=== PATIENT | male | born 1950 | race Caucasian/White ===

== ENCOUNTER 2020-07-31 01:12 | Outpatient (CLI) | payer BC, SELFPAY ==
[2020-07-31 16:30] LABS: SARS-CoV-2 RNA PCR Negative
== END 2020-07-31 01:13 | disposition home or self-care (01) ==
LOC: ANHCOVIDDT 01:12
PROVIDERS: PCP Family Medicine; Visit Provider Specialist
DX: Z01.812 Encounter for preprocedural laboratory examination (principal); Z20.828 Contact with and (suspected) exposure to other viral communicable diseases
CPT/HCPCS: 87635; C9803; U0003

== ENCOUNTER 2020-08-03 05:37 | Day surgery (SDC) | payer BC, SELFPAY ==
[2020-07-31 14:30] VITALS: BMI 29.4
[2020-08-03] VITALS (17 sets, daily range): BP systolic 106–130; BP diastolic 60–79; PULSE 62–75; RESP 14–20; TEMP 36.6; O2SAT 96–99
[2020-08-03 07:39] LABS: Basophils Absolute Auto 0.1 K/mm3 (0.0-0.1); Basophils Percent Auto 1.2 % (0.2-1.2); Eosinophils Absolute Auto 0.4 K/mm3 (0-0.3); Eosinophils Percent Auto 4.5 % (0-4.4); Hematocrit 37.3 % (42.0-52.0); Hemoglobin 13.1 g/dL (14.0-18.0); Immature Granulocyte Absolute 0.06 K/mm3 (0.00-0.031); Immature Granulocyte Percent A 0.7 % (0-0.5); Lymphocytes Absolute Auto 1.89 K/mm3 (0.9-3.2); Lymphocytes Percent Auto 21.8 % (18.3-44.2); Mean Corpuscular HGB Conc 35.1 g/dl (32-36); Mean Corpuscular Hemoglobin 31.3 pg (26-34); Mean Corpuscular Volume 89.2 fl (80-100); Mean Platelet Volume 8.5 fl (7.4-10.4); Monocytes Absolute Auto 0.8 K/mm3 (0.1-0.6); Monocytes Percent Auto 9.7 % (2.6-8.5); Neutrophils Absolute Auto 5.4 K/mm3 (1.3-6.7); Neutrophils Percent Auto 62.1 % (45.5-73.1); Platelet Count Result 254 k/mm3 (150-375); Red Blood Count 4.18 M/mm3 (4.6-6.20); White Blood Count 8.7 K/mm3 (4.5-10.0)
[2020-08-03 07:46] LABS: INR 0.9; Prothrombin Time 12.3 Seconds (11.1-14.7)
[2020-08-03 07:49] LABS: Anion Gap 9 mmol/L (8-16); Blood Urea Nitrogen 21 mg/dL (9-20); Calcium 9.7 mg/dL (8.4-10.2); Carbon Dioxide 26 mmol/L (22-30); Chloride 106 mmol/L (98-107); Estimated CRCL calculation 49 ml/min; Estimated Glomerular Filt Rate 54; Glucose 123 mg/dL (75-110); Potassium 4.5 mmol/L (3.4-5.0); Sodium 141 mmol/L (137-145)
--- NOTE | 2020-08-03 08:52 | WPDMODSED ---
Moderate Sedation Note-Pt Data Patient Data Diagnosis: Occasional chest pain, largely atypical of angina hypertension abnormal nuclear stress test suggesting previous inferior infarction Present Complaint: no complaints this morning Procedure to be performed/Plan: left heart catheterization Allergies Allergy/AdvReac Type Severity Reaction Status Date / Time No Known Allergies Allergy Unverified 07/13/20 11:21 Home Medications Medication Instructions Recorded Confirmed Type buspirone 15 mg tablet 15 mg PO BID 01/08/20 07/31/20 History fluticasone propionate 50 2 spray NASAL DAILY 01/08/20 07/31/20 History mcg/actuation nasal spray,suspension latanoprost 0.005 % eye drops 1 drop EACH EYE QPM 01/08/20 07/31/20 History omega-3 fatty acids 1,000 mg 1,000 mg PO DAILY 01/08/20 07/31/20 History capsule omeprazole 40 mg capsule,delayed 40 mg PO DAILY #90 cap 01/08/20 07/31/20 Rx release quinapril 40 mg tablet 40 mg PO DAILY #90 tablet 01/08/20 07/31/20 Rx atorvastatin 40 mg tablet 40 mg PO DAILY #90 tablet 07/07/20 07/31/20 Rx carvedilol 12.5 mg tablet 12.5 mg PO Q12H #180 tablet 07/07/20 07/31/20 Rx bupropion HCl 300 mg PO DAILY 07/31/20 07/31/20 History Current Medications: Active Medications Sodium Chloride (Normal Saline Iv) 500 mls @ 100 mls/hr IV CONT .Q5H TONIO Sedation/Anesthesia: No previous sedation/anesthesia problems (including family history). [facility] Social History Social History Years smoked: 15 Smoking status: Current every day smoker Tobacco type: cigars Second hand tobacco smoke exposure: No Alcohol intake: current Drinks per week: 1 Substance use: never Substance use type: does not use Living arrangements: with family Gender identity (if verbalized by the patient): Male Spiritual care concerns: No Mod Sed Physical Exam Physical Exam Pre Procedural Exam: Normal: Appearance, Neck, Throat, Airway, Lungs, Heart Size, Heart Rate, Heart Rhythm, Neuro Exam and Extremities Hours since solid foods: 12 Hours since liquid intake: 12 Internal Medicine - PN: Obj Da Vital Signs Vital Signs: Vital Signs - 24 hr 08/03/20 07:45 Temperature 36.6 C Pulse Rate 75 Respiratory Rate 14 Blood Pressure 118/60 Pulse Oximetry 98 Meds/Results Medications: Active Medications Generic Name Dose Route Start Last Admin Trade Name Kanwal PRN Reason Stop Dose Admin Sodium Chloride 500 mls @ 100 mls/hr 08/03/20 05:55 Normal Saline Iv IV CONT .Q5H TONIO Labs CBC & Chem 7: 08/03/20 07:29 08/03/20 07:29 Labs: Laboratory Results - last 24 hr 08/03/20 08/03/20 08/03/20 07:29 07:29 07:29 WBC 8.7 RBC 4.18 L Hgb 13.1 L Hct 37.3 L MCV 89.2 MCH 31.3 MCHC 35.1 RDW 13.0 Plt Count 254 MPV 8.5 Immature Gran % (Auto) 0.7 H Neut % (Auto) 62.1 Lymph % (Auto) 21.8 [place] % (Auto) 9.7 H Eos % (Auto) 4.5 H Baso % (Auto) 1.2 Lymph # (Auto) 1.89 [place] # (Auto) 0.8 H Eos # (Auto) 0.4 H Baso # (Auto) 0.1 Abs Immat Gran (auto) 0.06 H Absolute Neuts (auto) 5.4 Absolute Nucleated RBC 0.0 Nucleated RBC % 0.0 PT 12.3 INR 0.9 Sodium 141 Potassium 4.5 Chloride 106 Carbon Dioxide 26 Anion Gap 9 BUN 21 H Creatinine 1.30 Estim Creat Clear Calc 49 Estimated GFR 54 L Glucose 123 H Calcium 9.7 ASA Classification/Sedation ASA Classification/Sedation ASA Class: II Emergent: No Risks: Risks, benefits and alternatives explained and patient/family accepted plan for sedation. Patient re-evaluated immediately prior to sedation.
--- NOTE | 2020-08-03 09:30 | WPDCARDPROC ---
Cardiac Cath Procedure Note Date of procedure:: 08/03/20 Performing physician:: Librado Knox MD Indication:: atypical chest pain hypertension abnormal nuclear stress test Brief clinical history:: 70-year-old man with a history of recent symptoms of intermittent chest discomfort occurring both with and without exertion. Nuclear stress testing suggests evidence of a previous inferior infarction and in this setting and angiogram has been recommended. Procedure Procedure performed:: Left heart catheterization with left ventriculography and coronary angiography Sedation/Medication given:: fentanyl 50 mg Versed 2 mg case start time 9:04 a.m. case end time 9:26 a.m. sedation provided by Anum Griffiths RN, trained observer Access site:: right femoral Estimated blood loss:: 10-15 cc Procedure note:: patient was brought to the cardiac catheterization lab where the right femoral triangle was prepared and draped in the usual fashion anesthesia was provided with 1% lidocaine infiltrated locally using the modified Seldinger technique I punctured the right femoral artery. The J-wire provided with the sheath would not easily advance through the iliofemoral system and I replaced that with a Rosina wire which advanced fairly easily into the aorta. Five [place]an vascular sheath was then placed and left heart catheterization was carried out. I should also mention the iliac and femoral arteries were moderately calcified. Initially a 5 [place]an angled pigtail catheter was used to measure left-sided hemodynamics and, inject the left ventriculogram in the ALBA projection and document pullback pressures across the aortic valve. The left coronary was then engaged and injected using a standard 5 [place] FL4 catheter. Multiple projections were taken. The right coronary was then engaged and injected using a standard 5 [place] JR4 catheter. The cine angiograms were then reviewed and the case was terminated. Patient was taken to the holding area for manual sheath removal it was obvious that there was a significant amount of peripheral disease in the femoral iliac and I did not believe the patient was a reasonable candidate for a Angio-Seal device. Findings:: Hemodynamics: Central aortic pressure is 110/50 left ventricle 112/2 end-diastolic pressure 13 there is no systolic gradient on pullback across the aortic valve the left ventricle is normal in size. There is a small area of akinesis at the base of the inferior wall the remainder of the LV contracts very well. Global ejection fraction is 60%. The left main coronary artery is nicely patent and medium in size the left anterior descending is a moderate caliber artery with minimal luminal irregularities it is patent down to the apex of the left ventricle. There are no significant lesions in the LAD. Circumflex is a moderate caliber artery the proximal marginal branches are extremely small. There is a medium-sized distal OM that does not have any significant lesions. The posterior circumflex branch after this distal OM has a high-grade stenosis which appears to be 100% occluded with antegrade filling collaterals. This is a fairly small distal circumflex vessel. Right coronary artery is medium in caliber and is dominant to the posterior circulation. The right coronary artery has a early bifurcation in the 2nd portion of the artery. The RV branches and posterolateral branches appear to be free of significant disease the branch which appears to have been the RPDA is 100% closed. There was no antegrade or retrograde filling to this vessel. Conclusion:: 1. Coronary artery disease with 100% occlusion of what appears to have been the RPDA which is a very early bifurcating vessel in this patient's RCA. 2. Nuclear stress test findings which are consistent with this occluded vessel 3. also apparent 100% occlusion with antegrade collateral filling of the terminal portion of the circu
--- NOTE | 2020-08-03 15:52 | SUR.PHASEII ---
Pt. and spouse given post-procedure discharge education. Pt. and spouse verbalize understanding. Pt. transported to vehicle via wheelchair to be driven home by spouse.
== END 2020-08-03 15:54 | disposition home or self-care (01) ==
PROVIDERS: PCP Family Medicine; Visit Provider Specialist
PROC: 4A023N7 Measurement of Cardiac Sampling and Pressure, Left Heart, Percutaneous Approach (ICD-10-PCS; CPT 93452; principal; 2020-08-03 08:30)
DX: I25.10 Atherosclerotic heart disease of native coronary artery without angina pectoris (principal); R94.39 Abnormal result of other cardiovascular function study; R07.89 Other chest pain; I10 Essential (primary) hypertension; J44.9 Chronic obstructive pulmonary disease, unspecified; E78.5 Hyperlipidemia, unspecified; K21.9 Gastro-esophageal reflux disease without esophagitis; F41.9 Anxiety disorder, unspecified; Z85.820 Personal history of malignant melanoma of skin; F17.290 Nicotine dependence, other tobacco product, uncomplicated
CPT/HCPCS: 36415; 80048; 85025; 85610; 93458; C1769; C1887; C1894; J0461; J1644; J2250; J3010; J7040

== ENCOUNTER 2020-11-26 09:00 | Outpatient (RCR) | payer BC, SELFPAY ==
[2020-09-15 15:40] VITALS: BP 138/80; PULSE 72; RESP 16; TEMP 36.5
[2020-09-15 15:42] VITALS: PULSE 72
--- NOTE | 2020-11-02 10:09 | PCCPR ---
Pt cxl today due to having an MD apt.
== END 2020-12-03 16:53 | disposition home or self-care (01) ==
LOC: ANHCPREHAB 09:00
PROVIDERS: PCP Family Medicine; Visit Provider Internal Medicine Cardiovascular Disease
DX: I20.8 Other forms of angina pectoris (principal); I25.2 Old myocardial infarction
CPT/HCPCS: 93798

== ENCOUNTER 2021-02-19 09:44 | Outpatient (CLI) | payer BC, SELFPAY ==
--- NOTE | ~2021-02-19 | XR_ITS ---
EXAMINATION: XR abdomen/kub 1V DATE: 02/19/2021 10:06 INDICATION: Gross hematuria. TECHNIQUE: A supine view of the abdomen on 2 radiographs was obtained. COMPARISON: CT abdomen and pelvis 02/19/2021 FINDINGS: There are no dilated loops of bowel. There are stones in the kidneys measuring up to 13 mm on the right. There is an 8 mm stone in proximal left ureter. There are 2 phleboliths in right pelvis . IMPRESSION: 1. Stones in the kidneys and proximal left ureter. Reviewed, dictated and finalized at location B.
--- NOTE | ~2021-02-19 | CT_ITS ---
EXAMINATION: CT abdomen pelvis wo/w con DATE: 02/19/2021 10:30 INDICATION: Gross hematuria TECHNIQUE: Computed tomography (CT) of the abdomen and pelvis was performed without and subsequently with 130 cc Omnipaque 350 intravenous contrast. Automated exposure control and iterative reconstructi on technique were employed. Exam dose: 1697.09 mGy-cm total exam DLP. COMPARISON: 02/19/2021 KUB 06/15/2015 CT abdomen pelvis FINDINGS: The lung bases are clear of infiltrate or consolidation. Normal heart size. No pericardial or pleural effusion. The liver, gallbladder, bile ducts, spleen, pancreas and pancreatic duct as well as adrenal glands ar e unremarkable. There is a 2 6 mm upper pole left renal cyst. No other renal space occupying mass lesion. Extensive bilateral nonobstructive nephrolithiasis throughout both kidneys. Up to 5.5 x 9 mm right ureterovesical junction calculus with mild right hydroureteronephrosis 7.9 x 9.5 mm proximal left ureteral calculus with proximal moderately severe left hydroureteronephros is There is extensive calcification of the abdominal aorta and calcification at the origins of celiac an d superior mesenteric and renal arteries. No abdominal aortic aneurysm. Calcification of the iliac an d femoral arteries. No intraperitoneal or retroperitoneal or pelvic mass lesion or adenopathy or ascites. There is prostate enlargement. The urinary bladder is unremarkable. The appendix is not identified. Diverticulosis of the sigmoid and descending colon; no CT evidence of diverticulitis. No bowel obstruction, bowel wall thickening, pneumatosis or intraperitoneal free air . Fat-containing umbilical hernia. Transitional lumbosacral vertebral sacralization pseudoarthrosis on the left. Severe degenerative dis c disease throughout the lumbar spine. Diffuse idiopathic skeletal hyperostosis of the thoracic spine. IMPRESSION: Extensive bilateral nephrolithiasis Up to 5.5 x 9 mm right ureterovesical junction calculus and 7.9 x 9.5 mm proximal left ureteral calcu korin with bilateral left greater than right hydroureteronephrosis Diverticulosis of the colon Reviewed, dictated and finalized at Location A. Reviewed, dictated and finalized at location A. IMPRESSION: Extensive bilateral nephrolithiasis Up to 5.5 x 9 mm right ureterovesical junction calculus and 7.9 x 9.5 mm proxim al left ureteral calculus with bilateral left greater than right hydroureterone phrosis Diverticulosis of the colon
[2021-02-19 10:14] LABS: Estimated Glomerular Filt Rate 43
== END 2021-02-19 09:45 | disposition home or self-care (01) ==
PROVIDERS: PCP Family Medicine; Visit Provider Nurse Practitioner Adult Health
DX: R31.0 Gross hematuria (principal); N20.2 Calculus of kidney with calculus of ureter; K57.30 Diverticulosis of large intestine without perforation or abscess without bleeding
CPT/HCPCS: 74018; 74178; Q9967

== ENCOUNTER 2021-02-22 22:36 | Emergency (ER) | payer BC, SELFPAY ==
[2021-02-22] VITALS (7 sets, daily range): BP systolic 157–165; BP diastolic 67–77; PULSE 62–70; RESP 18–30; TEMP 36.1; O2SAT 100
--- NOTE | ~2021-02-22 | CT_ITS ---
EXAMINATION: CT abdomen pelvis wo con DATE: 02/22/2021 23:37 INDICATION: Flank pain and hematuria. TECHNIQUE: Computed tomography (CT) of the abdomen and pelvis was performed without intravenous contr ast. Automated exposure control and iterative reconstruction technique were employed. The dose-length product was 697.47 mGy-cm. COMPARISON: 02/19/2021 FINDINGS: Mild dependent atelectasis in the left lower lobe. Heart size is normal. Atherosclerotic coronary art adan calcifications. No pericardial or pleural effusion. Liver, gallbladder, spleen, pancreas and bila teral adrenal glands are normal. There is moderate colonic diverticulosis with a sigmoid predominance . There is no adjacent inflammatory change to suggest diverticulitis. No bowel obstruction. Miramontes catheter and small amount of gas within the nearly decompressed bladder. Bilateral internal ure teral stents with loops formed in the bilateral renal pelvises sees and in the bladder. Bilateral nep hrolithiasis with large stones including a 1.9 cm staghorn calculus at the upper pole calyces of the right kidney and 10 mm stones at the upper pole of the left kidney and lower pole of the right kidney . Round 7 mm stone in the proximal left ureter with persistent more proximal mild left hydroureterone phrosis. No stones along the right ureter or right-sided hydronephrosis. Mild prostatomegaly. No free intraperitoneal gas or fluid. No pathologically enlarged abdominal or pelvic lymphadenopathy. . There is calcified atherosclerosis of the aorta and many of the other arteries. Severe lumbar spond ylosis. IMPRESSION: 1. Bilateral nephrolithiasis post interval bilateral ureteral stent placement with persistent [address] one in the proximal left ureter and slight improvement in now mild proximal left hydroureteronephrosi s. 2. Diverticulosis. Reviewed, dictated and finalized at location A. IMPRESSION: 1. Bilateral nephrolithiasis post interval bilateral ureteral stent placement w ith persistent 7 mm stone in the proximal left ureter and slight improvement in now mild proximal left hydroureteronephrosis. 2. Diverticulosis.
[2021-02-22] MEDS: SODIUM CHLORIDE 0.9% IV 1,000 ML 999 ML IV CONT (23:55)
[2021-02-22] MEDS: MORPHINE SULFATE (*CRX) 4 MG/ML INJ IV PUSH (23:56)
[2021-02-22] MEDS: ONDANSETRON INJ 4 MG/2 ML VIAL IV PUSH (23:56)
[2021-02-23] VITALS: PULSE 74; RESP 28; O2SAT 100
[2021-02-23 00:01] VITALS: BP 161/75; PULSE 72; RESP 20; O2SAT 100
[2021-02-23 00:10] LABS: Basophils Absolute Auto 0.1 K/mm3 (0.0-0.1); Basophils Percent Auto 0.6 % (0.2-1.2); Eosinophils Percent Auto 0.3 % (0-4.4); Hematocrit 40.1 % (42.0-52.0); Hemoglobin 13.6 g/dL (14.0-18.0); Immature Granulocyte Absolute 0.06 K/mm3 (0.00-0.031); Immature Granulocyte Percent A 0.5 % (0-0.5); Lymphocytes Absolute Auto 1.59 K/mm3 (0.9-3.2); Lymphocytes Percent Auto 12.6 % (18.3-44.2); Mean Corpuscular HGB Conc 33.9 g/dl (32-36); Mean Corpuscular Hemoglobin 29.8 pg (26-34); Mean Corpuscular Volume 87.9 fl (80-100); Mean Platelet Volume 8.8 fl (7.4-10.4); Monocytes Absolute Auto 0.5 K/mm3 (0.1-0.6); Monocytes Percent Auto 4.2 % (2.6-8.5); Neutrophils Absolute Auto 10.3 K/mm3 (1.3-6.7); Neutrophils Percent Auto 81.8 % (45.5-73.1); Platelet Count Result 268 k/mm3 (150-375); Red Blood Count 4.56 M/mm3 (4.6-6.20); Red Cell Distribution Width 13.2 % (11.5-14.5); White Blood Count 12.6 K/mm3 (4.5-10.0)
[2021-02-23 00:14] LABS: Prothrombin Time 13.5 Seconds (11.1-14.7)
[2021-02-23 00:15] VITALS: PULSE 73; RESP 22; O2SAT 100
[2021-02-23 00:15] LABS: Partial Thromboplastin Time 28.2 SECONDS (22.3-36.8)
[2021-02-23 00:16] VITALS: BP 167/75; PULSE 72; RESP 24; O2SAT 100
[2021-02-23 00:26] LABS: Alanine Aminotransferase 24 U/L (4-50); Albumin Level 4.5 g/dL (3.5-5.1); Alkaline Phosphatase 77 U/L (38-126); Anion Gap 9 mmol/L (8-16); Aspartate Amino Transferase 48 U/L (17-59); Bilirubin,Total 0.6 mg/dL (0.2-1.3); Blood Urea Nitrogen 18 mg/dL (9-20); Calcium 9.6 mg/dL (8.4-10.2); Carbon Dioxide 24 mmol/L (22-30); Chloride 103 mmol/L (98-107); Estimated CRCL calculation 56 ml/min; Estimated Glomerular Filt Rate > 60; Glucose 133 mg/dL (75-110); Lipase 69 U/L (23-300); Potassium 4.6 mmol/L (3.4-5.0); Sodium 136 mmol/L (137-145)
[2021-02-23 00:34] LABS: Add Urine Microscopic? YES; Appearance Urine Cloudy (Clear); Bilirubin Urine Negative (Negative); Blood Urine 3+ (Negative); Glucose Urine UA Negative (Negative); Ketones Urine Negative (Negative); Leukocyte Esterase Ur Trace LEU/UL (Negative); Nitrate Urine Negative (Negative); Protein Urine 3+ mg/dL (Negative); RBC Urine >75 /hpf (0-2); Specific Grav Ur 1.014 (1.001-1.035); Urobilinogen Urine Negative mg/dL (<2.0); WBC Urine 31-50 /hpf
[2021-02-23 00:36] LABS: Color Urine Brown (Yellow)
[2021-02-23] MEDS: ONDANSETRON INJ 4 MG/2 ML VIAL IV PUSH (00:43)
--- NOTE | 2021-02-23 01:54 | ED.GENADULT ---
HPI - General Adult General Chief complaint: Abdominal Pain Stated complaint: lower abd pain, n/v Time Seen by Provider: 02/22/21 23:15 History of Present Illness HPI narrative: Patient is a 70-year-old gentleman who presents to emergency department chief complaint of abdominal pain and hematuria. The patient reports he had a urological procedure today and has bilateral stents. The patient states that he started passing large clots and felt as though his catheter was getting plugged patient reports he has pain in his suprapubic area and abdomen. Patient reports he was moderate to severe Related Data Home Medications Medication Instructions Recorded Confirmed buspirone 15 mg tablet 15 mg PO BID 01/08/20 02/09/21 fluticasone propionate 50 2 spray NASAL DAILY 01/08/20 02/09/21 mcg/actuation nasal spray,suspension latanoprost 0.005 % eye drops 1 drop EACH EYE QPM 01/08/20 02/09/21 Multivitamin 50 Plus 1 09/15/20 02/09/21 aspirin [Aspir-81] 09/15/20 02/09/21 magnesium 400 mg PO DAILY 09/15/20 02/09/21 rosuvastatin 40 mg PO DAILY 09/15/20 02/09/21 Vascepa 2,000 mg PO BID 11/16/20 02/09/21 ascorbic acid (vitamin C) 1,000 mg 1 g PO DAILY 02/09/21 02/09/21 tablet cetirizine 10 mg tablet 10 mg PO DAILY PRN 02/09/21 02/09/21 cholecalciferol (vitamin D3) 50 50 mcg PO DAILY 02/09/21 02/09/21 mcg (2,000 unit) capsule glucosamine HCl 500 mg tablet 500 mg PO DAILY 02/09/21 02/09/21 omega-3 fatty acids 1,000 mg 1,000 mg PO DAILY 02/09/21 02/09/21 capsule pyridoxine (vitamin B6) 100 mg 100 mg PO DAILY 02/09/21 02/09/21 tablet Allergies Allergy/AdvReac Type Severity Reaction Status Date / Time No Known Allergies Allergy Unverified 02/09/21 09:13 Review of Systems Review of Systems: Narrative: A 10 system review of systems was completed on the patient and is negative except for what is stated in the HPI. Nursing and ancillary documentation was reviewed. [facility] Past Medical History Medical History CAD (coronary artery disease) Dupuytren's contracture of right hand Hypertension with heart disease Surgical History Surgical History History of appendectomy History of lithotripsy Status post cataract extraction Status post lumbar spinal fusion Family History Family History Mother Hypertension HLD (hyperlipidemia) Lung cancer Father Cerebrovascular accident Social History Social History Smoking packs per day: 1 Smoking cigarettes per day: 20.0 Years smoked: 15 Smoking pack-years: 15.00 Smoking status: Current every day smoker Tobacco type: cigars Second hand tobacco smoke exposure: No Additional smoking assessment comments: cigar smoker 2-3 per day Alcohol intake: current Drinks per week: 1 Substance use: never Substance use type: does not use Gender identity (if verbalized by the patient): Male Spiritual care concerns: No Exam Narrative: Exam Narrative: GENERAL: Well-appearing, well-nourished, and in no acute distress. HEAD: Normocephalic, atraumatic. EYES: PERRLA and EOMI. ENT: Nares clear, no rhinorrhea or epistaxis. Mucous membranes moist. NECK: Supple. CHEST: Clear to auscultation. No respiratory distress. HEART: Regular rate and rhythm. No murmur heard. Normal peripheral pulses. ABDOMEN: Soft, nontender, nondistended, normal active bowel sounds. EXTREMITIES: Normal range of motion. No edema. SKIN: Warm, dry, no rash. NEURO: No focal deficits. Alert and oriented x3. PSYCH: Normal mood and affect. Course Course Emergency Course: Patient was irrigated and now is got pink lemonade color urine. Case was discussed with Dr. Taylor who is the patient's urologist who will closely follow the patient as an outpatient he re
[2021-02-23 02:36] VITALS: BP 153/74; PULSE 75; RESP 16; TEMP 36.8; O2SAT 100
== END 2021-02-23 02:37 | disposition home or self-care (01) ==
PROVIDERS: Emergency Provider Emergency Medicine; PCP Family Medicine
DX: G89.18 Other acute postprocedural pain (principal); R10.30 Lower abdominal pain, unspecified; R31.0 Gross hematuria; I25.10 Atherosclerotic heart disease of native coronary artery without angina pectoris; I10 Essential (primary) hypertension; Z98.49 Cataract extraction status, unspecified eye; Z98.1 Arthrodesis status; F17.290 Nicotine dependence, other tobacco product, uncomplicated; Z96.0 Presence of urogenital implants; Z79.82 Long term (current) use of aspirin
CPT/HCPCS: 36415; 74176; 80053; 81001; 83690; 85025; 85610; 85730; 87086; 96361; 96374; 96375; 96376; 99284; J2270; J2405; J7030

== ENCOUNTER 2021-03-02 10:18 | Outpatient (CLI) | payer BC, SELFPAY ==
[2021-03-02 11:10] LABS: Prothrombin Time 13.8 Seconds (11.1-14.7)
[2021-03-02 11:11] LABS: Partial Thromboplastin Time 29.8 SECONDS (22.3-36.8)
== END 2021-03-02 10:19 | disposition home or self-care (01) ==
LOC: ANHSURGERY 10:21
PROVIDERS: PCP Family Medicine; Visit Provider Urology
DX: N20.1 Calculus of ureter (principal); Z01.818 Encounter for other preprocedural examination
CPT/HCPCS: 36415; 85610; 85730; 87086

== ENCOUNTER → 2021-03-09 01:26 | Outpatient (CLI) | payer BC, SELFPAY ==
[2021-03-09 18:55] LABS: SARS-CoV-2 RNA PCR Negative
== END ==
PROVIDERS: PCP Family Medicine; Visit Provider Urology
DX: Z01.812 Encounter for preprocedural laboratory examination (principal); Z20.822 Contact with and (suspected) exposure to COVID-19
CPT/HCPCS: C9803; U0003; U0005

== ENCOUNTER 2021-03-12 05:43 | Day surgery (SDC) | payer BC, SELFPAY ==
[2021-02-24 15:44] VITALS: BMI 27.3
[2021-03-12] VITALS (7 sets, daily range): BP systolic 116–133; BP diastolic 61–74; PULSE 62–77; RESP 12–19; TEMP 36.4–36.8; O2SAT 97–100
--- NOTE | ~2021-03-12 | XR_ITS ---
EXAMINATION: XR abdomen/kub 1V DATE: 03/12/2021 06:31 INDICATION: Lithotripsy TECHNIQUE: A supine view of the abdomen on radiographs was obtained. COMPARISON: CT dated 02/22/2021 FINDINGS: Bilateral internal ureteral stents with loops formed over the expected location of the bladder and bi lateral renal pelvises sees. No interval change in pattern of several stones projecting over both kid neys as well as 3 mm stone projecting along side the stent in the proximal left ureter. Phleboliths a nd atherosclerotic calcifications in the pelvis. Normal bowel gas pattern. Severe lumbar spondylosis. IMPRESSION: 1. No interval change in bilateral nephrolithiasis, an 8 mm left ureteral stone and bilateral interna l ureteral stents in expected position. Reviewed, dictated and finalized at location A. IMPRESSION: 1. No interval change in bilateral nephrolithiasis, an 8 mm left ureteral stone and bilateral internal ureteral stents in expected position.
--- NOTE | 2021-03-12 06:55 | WPDANESEPPF ---
Anes - Initial Pre Proc Eval Procedure: Operation Date: 03/12/21 07:30 Proposed Procedures p Left Ureteral Extracorporeal Shock Wave Lithotripsy, - Neeraj Taylor MD s Cystoscopy with Right Stent Removal - Neeraj Taylor MD Date/Time: 03/12/21 06:55 Surgeon: Neeraj Taylor MD Pre Op Diagnosis: left ureteral stone Patient Data Age: 70 Gender: M Height: 5 ft 10 in Weight: 84 kg Last Vital Signs Temp 36.4 C 03/12/21 06:50 Pulse 66 03/12/21 06:50 Resp 16 03/12/21 06:50 BP 116/65 03/12/21 06:50 Pulse Ox 98 03/12/21 06:50 Allergies Allergy/AdvReac Type Severity Reaction Status Date / Time No Known Allergies Allergy Unverified 03/12/21 06:51 Home Medications Medication Instructions Recorded Confirmed Type buspirone 15 mg tablet 15 mg PO BID 01/08/20 02/24/21 History fluticasone propionate 50 2 spray NASAL DAILY PRN 01/08/20 02/24/21 History mcg/actuation nasal spray,suspension latanoprost 0.005 % eye drops 1 drop EACH EYE QPM 01/08/20 02/24/21 History metoprolol succinate 50 mg PO DAILY #30 tablet 08/03/20 02/24/21 Rx Multivitamin 50 Plus 1 tab-cap QAM 09/15/20 02/24/21 History aspirin [Aspir-81] 81 mg QAM 09/15/20 02/24/21 History magnesium 400 mg PO DAILY 09/15/20 02/24/21 History rosuvastatin 40 mg PO HS 09/15/20 02/24/21 History Vascepa 2,000 mg PO BID 11/16/20 02/24/21 History omeprazole 40 mg capsule,delayed 40 mg PO DAILY #90 cap 12/29/20 02/24/21 Rx release quinapril 40 mg tablet 40 mg PO DAILY #90 tablet 12/29/20 02/24/21 Rx ascorbic acid (vitamin C) 1,000 mg 1 g PO DAILY 02/09/21 02/24/21 History tablet cetirizine 10 mg tablet 10 mg PO DAILY PRN 02/09/21 02/24/21 History cholecalciferol (vitamin D3) 50 50 mcg PO DAILY 02/09/21 02/24/21 History mcg (2,000 unit) capsule glucosamine HCl 500 mg tablet 500 mg PO DAILY 02/09/21 02/24/21 History pyridoxine (vitamin B6) 100 mg 100 mg PO DAILY 02/09/21 02/24/21 History tablet sertraline 100 mg PO DAILY 02/24/21 02/24/21 History Patient hx anesthesia problems: none Family hx anesthesia problems: none PMFSH Past Medical History Medical History CAD (coronary artery disease) Depression with anxiety Dupuytren's contracture of right hand Gastro-esophageal reflux disease without esophagitis Hypertension with heart disease Mild chronic obstructive pulmonary disease Mixed hyperlipidemia MARTHA (obstructive sleep apnea) Surgical History Surgical History History of appendectomy History of lithotripsy Status post cataract extraction Status post lumbar spinal fusion Family History Family History Mother Hypertension HLD (hyperlipidemia) Lung cancer Father Cerebrovascular accident Social History Social History Smoking packs per day: 1 Smoking cigarettes per day: 20.0 Years smoked: 15 Smoking pack-years: 15.00 Smoking status: Current every day smoker Tobacco type: cigarettes and cigars Second hand tobacco smoke exposure: No Additional smoking assessment comments: STATES HX CIGARETTES 1PK/DAY/25YRS NOW 3 CIGARS/DAY/15YRS Alcohol intake: current Drinks per week: 2 Substance use: never Substance use type: does not use Living arrangements: with family Gender identity (if verbalized by the patient): Male Spiritual care concerns: No Anes - Eval Final PreProcedure Day of Procedure 03/12/21 06:55 Patient weight: overweight Heart: regular rate and rhythm Lungs: decreased breath sounds Airway: Mallampati scale class II Neurological: alert and oriented Last oral intake: >/= 8 hours ASA classification: III Emergent: no Anesthetic plan: proceed Anesthesia type and monitoring: general LMA and standard monitoring Informed Consent: Nii kendall
[2021-03-12] MEDS: LACTATED RINGERS 1,000 ML 30 ML IV CONT (07:01)
--- NOTE | 2021-03-12 07:30 | WPDHPUPDATE1 ---
History and Physical Update Update Date/Time: 03/12/21 07:30 History and Physical has been reviewed, including an updated exam of the patient. There are NO changes in the patient's condition. Risks, benefits, and alternatives have been discussed and questions answered. Patient agrees to proceed with procedure.
[2021-03-12] MEDS: ceFAZolin 2 GM/D5W 50 ML 2 GM/50 ML BAG IVPB (07:35)
--- NOTE | 2021-03-12 08:19 | P.OP_ITS ---
Procedure Note - Detailed Date of procedure: 03/12/21 Pre-op diagnosis: left ureteral stone Left ureteral stone 1 cm, right ureteral stent Post-op diagnosis: same Procedure performed: Cystoscopy with right stent removal. ESWL of left ureteral calculus Description of procedure: Patient is taken the operative suite and correctly identified. Once anesthesia was obtained he was prepped draped usual sterile fashion. Sixteen Kiswahili scope was inserted in the bladder direct vision. The right ureteral stent was visualized. Grasper was used to remove it. We then repositioned the patient had localized the stone in both planes. Three thousand shocks were given to the stone. Patient tolerated procedure well without any complications and taken recovery stable condition. He will follow up in 7-10 days with a KUB. Anesthesia: GLMA Surgeon: Neeraj Taylor MD Drains: Yes Packing: No Pathology: none sent Complications: No immediate complications Condition: stable Disposition: PACU
== END 2021-03-12 09:39 | disposition home or self-care (01) ==
PROVIDERS: PCP Family Medicine; Visit Provider Urology
PROC: (CPT 50590; principal; 2021-03-12 07:30)
PROC: (CPT 52352; 2021-03-12 07:30)
DX: N20.1 Calculus of ureter (principal); I25.10 Atherosclerotic heart disease of native coronary artery without angina pectoris; J44.9 Chronic obstructive pulmonary disease, unspecified; I11.9 Hypertensive heart disease without heart failure; G47.33 Obstructive sleep apnea (adult) (pediatric); E78.2 Mixed hyperlipidemia; F41.8 Other specified anxiety disorders; Z98.1 Arthrodesis status; F17.210 Nicotine dependence, cigarettes, uncomplicated; F17.290 Nicotine dependence, other tobacco product, uncomplicated
CPT/HCPCS: 50590; 36415; 74018; 85610; 85730; 87086; A9270; C1769; C9803; J0690; J2405; J2704; J3010; J7030; J7120; U0003; U0005

== ENCOUNTER 2021-03-23 09:44 | Outpatient (CLI) | payer BC, SELFPAY ==
--- NOTE | ~2021-03-23 | XR_ITS ---
EXAMINATION: XR abdomen/kub 1V INDICATION: Gross hematuria, recent lithotripsy TECHNIQUE: Supine views of the abdomen were obtained on 2 radiographs. COMPARISON: 03/12/2021 FINDINGS: The right internal ureteral stent has been removed. There is a persistent 2.1 cm calcificat ion of the right kidney upper pole. A 1.2 cm stone is also seen in the lower pole of the right kidney . There is a left internal ureteral stent in expected position. A 10 mm stone previously seen adjacen t to the left internal ureteral stent is no longer identified, likely due to interval lithotripsy. Th ere is stable left nephrolithiasis. Vascular calcification projects near the distal aspect of the ke[place] nt giving the appearance of a distal ureteral calculus. There is severe lumbar spondylosis. The bowel gas pattern is normal. 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 The lung bases are clear. IMPRESSION: 1. Bilateral nephrolithiasis with apparent interval treatment of a previously described stone adjacen t to the left internal ureteral stent. 2. Right internal ureteral stent removal. Reviewed, dictated and finalized at location A. IMPRESSION: 1. Bilateral nephrolithiasis with apparent interval treatment of a previously d escribed stone adjacent to the left internal ureteral stent. 2. Right internal ureteral stent removal.
== END 2021-03-23 09:45 | disposition home or self-care (01) ==
LOC: ANHIMG 09:48
PROVIDERS: PCP Family Medicine; Visit Provider Urology
DX: R31.0 Gross hematuria (principal); N20.0 Calculus of kidney
CPT/HCPCS: 74018

== ENCOUNTER 2021-04-28 09:21 | Outpatient (CLI) | payer BC, SELFPAY ==
--- NOTE | 2021-04-28 09:30 | ECG_ITS ---
Measurements Intervals [place] Rate: 65 P: 72 NV: 158 QRS: -1 QRSD: 114 T: 58 QT: 385 QTc: 401 Interpretive Statements SINUS RHYTHM INCOMPLETE RIGHT BUNDLE BRANCH BLOCK BASELINE ARTIFACT- I, II BORDERLINE ECG Electronically Signed On 04-28-2021 10:07:30 CDT by Clayton Hernandez D.O.
[2021-04-28 10:01] LABS: INR 0.9; Prothrombin Time 13.2 Seconds (11.1-14.7)
[2021-04-28 10:02] LABS: Partial Thromboplastin Time 26.2 SECONDS (22.3-36.8)
== END 2021-04-28 09:22 | disposition home or self-care (01) ==
LOC: ANHSURGERY 09:25
PROVIDERS: PCP Family Medicine; Visit Provider Urology
DX: N20.0 Calculus of kidney (principal); I11.9 Hypertensive heart disease without heart failure; Z01.818 Encounter for other preprocedural examination; I45.10 Unspecified right bundle-branch block
CPT/HCPCS: 36415; 85610; 85730; 87086; 93005

== ENCOUNTER 2021-05-07 02:00 | Day surgery (SDC) | payer BC, SELFPAY ==
[2021-04-26 14:13] VITALS: BMI 26.5
--- NOTE | ~2021-05-07 | XR_ITS ---
XR abdomen/kub 1V DATE: 05/07/2021 06:27 INDICATION: Lithotripsy TECHNIQUE: AP projection, 2 views COMPARISON: 03/23/2021 KUB 03/12/2021 KUB 02/19/[address] abdomen pelvis without and subsequent with IV contrast material FINDINGS: There is interval removal of left internal urinary stent since 03/23/2021. There is interval resolution of calcified calculus of the proximal left ureter since 02/19/2021. Persistent multiple bilateral renal calcified calculi appears stable since 03/23/2021. There is a moderately prominent amount of fecal material within the rectum and colon but no evidence of bowel obstruction. The psoas shadows are intact. No visceromegaly is evident. Degenerative changes of the lower thoracic and lumbar spine including particularly severe degenerativ e disc disease at L2-3, L3-4, L4-5, L5-S1. Transitional lumbosacral vertebra with sacralization pseudoarthrosis on the left. IMPRESSION: Persistent multiple bilateral calcified renal stones Interval removal of left internal urinary stent and resolution of left proximal ureteral calcified ca lculus since 03/23/2021 Reviewed, dictated and finalized at [facility]. Reviewed, dictated and finalized at [facility]. IMPRESSION: Persistent multiple bilateral calcified renal stones Interval removal of left internal urinary stent and resolution of left proximal ureteral calcified calculus since 03/23/2021
[2021-05-07] MEDS: LACTATED RINGERS 1,000 ML 30 ML IV CONT (06:57)
[2021-05-07 07:00] VITALS: BP 129/60; PULSE 65; RESP 18; TEMP 36.4; O2SAT 99
--- NOTE | 2021-05-07 07:07 | WPDANESEPPF ---
Anes - Initial Pre Proc Eval Procedure: Operation Date: 05/07/21 07:30 Proposed Procedures p Left Renal Extracorporeal Shock Wave Lithotripsy - Neeraj Taylor MD Date/Time: 05/07/21 07:07 Surgeon: Neeraj Taylor MD Pre Op Diagnosis: left renal kidney stone Patient Data Age: 70 Gender: M Height: 1.78 m Weight: 84 kg Allergies Allergy/AdvReac Type Severity Reaction Status Date / Time No Known Allergies Allergy Unverified 04/26/21 14:05 Home Medications Medication Instructions Recorded Confirmed Type buspirone 15 mg tablet 15 mg PO BID 01/08/20 04/26/21 History fluticasone propionate 50 2 spray NASAL DAILY 01/08/20 04/26/21 History mcg/actuation nasal spray,suspension latanoprost 0.005 % eye drops 1 drop EACH EYE QPM 01/08/20 04/26/21 History Multivitamin 50 Plus 1 tab-cap PO QAM 09/15/20 04/26/21 History aspirin 81 mg PO QAM 09/15/20 04/26/21 History magnesium 400 mg PO DAILY 09/15/20 04/26/21 History rosuvastatin 40 mg PO HS 09/15/20 04/26/21 History Vascepa 2,000 mg PO BID 11/16/20 04/26/21 History omeprazole 40 mg capsule,delayed 40 mg PO DAILY #90 cap 12/29/20 04/26/21 Rx release ascorbic acid (vitamin C) 1,000 mg 1 g PO DAILY 02/09/21 04/26/21 History tablet cetirizine 10 mg tablet 10 mg PO DAILY 02/09/21 04/26/21 History cholecalciferol (vitamin D3) 50 50 mcg PO DAILY 02/09/21 04/26/21 History mcg (2,000 unit) capsule glucosamine HCl 500 mg tablet 1,000 mg PO DAILY 02/09/21 04/26/21 History pyridoxine (vitamin B6) 100 mg 100 mg PO DAILY 02/09/21 04/26/21 History tablet sertraline 100 mg PO QAM 02/24/21 04/26/21 History metoprolol succinate 50 mg PO QAM 04/26/21 04/26/21 History quinapril 40 mg PO QAM 04/26/21 04/26/21 History Patient hx anesthesia problems: none Family hx anesthesia problems: none [facility] Past Medical History Medical History CAD (coronary artery disease) Depression with anxiety Dupuytren's contracture of right hand Gastro-esophageal reflux disease without esophagitis Hypertension with heart disease Mild chronic obstructive pulmonary disease Mixed hyperlipidemia MARTHA (obstructive sleep apnea) Surgical History Surgical History History of appendectomy History of lithotripsy Status post cataract extraction Status post lumbar spinal fusion Family History Family History Mother Hypertension HLD (hyperlipidemia) Lung cancer Father Cerebrovascular accident Social History Social History (Updated 04/22/21 @ 11:04 by Nhung Matson) Smoking packs per day: 1 Smoking cigarettes per day: 20.0 Years smoked: 15 Smoking pack-years: 15.00 Smoking status: Current every day smoker Tobacco type: cigarettes and cigars Second hand tobacco smoke exposure: No Smoking end date: 10/30/96 Additional smoking assessment comments: STATES HX CIGARETTES 1PK/DAY/25YRS NOW 3 CIGARS/DAY/15YRS Alcohol intake: current Drinks per week: 2 Substance use: never Substance use type: does not use Living arrangements: with family Additional living arrangements comments: AND SON Gender identity (if verbalized by the patient): Male Spiritual care concerns: No Anes - Eval Final PreProcedure Day of Procedure 05/07/21 07:07 Patient weight: overweight Heart: regular rate and rhythm Lungs: clear to auscultation Airway: Mallampati scale class III Neurological: alert and oriented Last oral intake: >/= 8 hours ASA classification: III Emergent: no Anesthetic plan: proceed Anesthesia type and monitoring: general LMA and standard monitoring Informed Consent: The patient's anesthetic plan and its attendant risks and benefits were discussed with the patient/family/POA. Questions were solicited and answers provided to the satisfaction of the patient/family/POA.
--- NOTE | 2021-05-07 07:24 | WPDHPUPDATE1 ---
History and Physical Update Update Date/Time: 05/07/21 07:24 History and Physical has been reviewed, including an updated exam of the patient. There are NO changes in the patient's condition. Risks, benefits, and alternatives have been discussed and questions answered. Patient agrees to proceed with procedure.
[2021-05-07] MEDS: ceFAZolin 2 GM/D5W 50 ML 2 GM/50 ML BAG IVPB (07:30)
--- NOTE | 2021-05-07 08:07 | W.PM.PROC2 ---
Procedure Note - Detailed Date of Procedure 05/07/21 Pre-op Diagnosis left renal kidney stone Post-op Diagnosis same Procedure Performed ESWL of left renal calculus Surgeon Neeraj Taylor MD Anesthesia general Description of Procedure patient is taken to the operative suite and correctly identified. Once anesthesia was obtained the upper pole stone on the left was identified in both planes. Two thousand five hundred shocks were given stone. There appeared to be good fragmentation. Patient tolerated procedure well without any complications and was taken recovery stable condition. he is given the standard post litho instructions. Drains No Packing No Pathology none sent Complications No immediate complications Condition stable Disposition PACU
[2021-05-07 08:14] VITALS: BP 129/64; PULSE 67; RESP 14; TEMP 36.4; O2SAT 100
[2021-05-07 08:29] VITALS: BP 133/66; PULSE 66; RESP 16; O2SAT 100
--- NOTE | 2021-05-07 08:33 | SUR.PHASEI ---
LT FLANK RED, NO BRUISING NOTED. DENIES PAIN AT THIS TIME
[2021-05-07 08:44] VITALS: BP 134/70; PULSE 67; RESP 21; TEMP 36.2; O2SAT 97
[2021-05-07 08:50] VITALS: BP 126/68; PULSE 69; RESP 16
[2021-05-07 09:20] VITALS: BP 122/70; PULSE 59; RESP 16
== END 2021-05-07 09:51 | disposition home or self-care (01) ==
PROVIDERS: PCP Family Medicine; Visit Provider Urology
PROC: (CPT 50590; principal; 2021-05-07 07:30)
DX: N20.0 Calculus of kidney (principal); I25.10 Atherosclerotic heart disease of native coronary artery without angina pectoris; F41.8 Other specified anxiety disorders; E78.2 Mixed hyperlipidemia; J44.9 Chronic obstructive pulmonary disease, unspecified; I11.9 Hypertensive heart disease without heart failure; K21.9 Gastro-esophageal reflux disease without esophagitis; G47.33 Obstructive sleep apnea (adult) (pediatric); F17.210 Nicotine dependence, cigarettes, uncomplicated; F17.290 Nicotine dependence, other tobacco product, uncomplicated; Z79.82 Long term (current) use of aspirin
CPT/HCPCS: 50590; 36415; 74018; 85610; 85730; 87086; 93005; J0690; J1100; J2370; J2405; J2704; J3010; J7120

== ENCOUNTER 2021-05-18 11:13 | Outpatient (CLI) | payer BC, SELFPAY ==
--- NOTE | ~2021-05-18 | XR_ITS ---
XR abdomen/kub 1V DATE: 05/18/2021 11:28 INDICATION: Kidney calculus follow-up TECHNIQUE: AP projection, 2 views COMPARISON: 05/07/2021 KUB FINDINGS: Multiple bilateral renal calcifications are again noted including staghorn calcified calcul i of the upper pole and lower pole of the right kidney. Noncontrast CT abdomen pelvis would be more d efinitive for exclusion of any ureteral calcified calculi and assessment of any hydronephrosis. There is a moderately prominent of fecal material within the colon. No bowel obstruction is detected. The psoas shadows are intact. No visceromegaly is evident. There is severe multilevel degenerative disc disease throughout the lumbar spine. IMPRESSION: Bilateral nephrolithiasis Reviewed, dictated and finalized at [facility]. Reviewed, dictated and finalized at [facility]. IMPRESSION: Bilateral nephrolithiasis
== END 2021-05-18 11:14 | disposition home or self-care (01) ==
LOC: ANHIMG 11:17
PROVIDERS: PCP Family Medicine; Visit Provider Urology
DX: N20.0 Calculus of kidney (principal)
CPT/HCPCS: 74018

== ENCOUNTER 2021-05-26 09:10 | Outpatient (CLI) | payer BC, SELFPAY ==
[2021-05-26 09:42] LABS: Prothrombin Time 12.7 Seconds (11.1-14.7)
[2021-05-26 09:43] LABS: Partial Thromboplastin Time 26.1 SECONDS (22.3-36.8)
== END 2021-05-26 09:11 | disposition home or self-care (01) ==
LOC: ANHSURGERY 09:11
PROVIDERS: PCP Family Medicine; Visit Provider Urology
DX: Z01.818 Encounter for other preprocedural examination (principal); N20.0 Calculus of kidney
CPT/HCPCS: 36415; 85610; 85730; 87086

== ENCOUNTER 2021-06-04 03:24 | Day surgery (SDC) | payer BC, SELFPAY ==
[2021-05-21 09:43] VITALS: BMI 26.5
[2021-06-04] VITALS (7 sets, daily range): BP systolic 103–128; BP diastolic 64–74; PULSE 62–72; RESP 12–20; TEMP 36.2–36.4; O2SAT 95–100
--- NOTE | ~2021-06-04 | XR_ITS ---
EXAMINATION: XR abdomen/kub 1V INDICATION: Nephrolithiasis TECHNIQUE: Supine view of the abdomen is obtained. COMPARISON: 05/18/2021 FINDINGS: There is a 4 mm stone in the right kidney upper pole. Multiple stones measuring up to 7 mm are present in the left kidney lower pole. There is a 2.2 cm stone of the right kidney upper pole. A 1.1 cm stone is present in the lower pole of the right kidney. No stones are identified along the exp ected courses of the ureters or in the urinary bladder. There are phleboliths of the pelvis. Severe l umbar spondylosis is noted. There is moderate osteoarthritis of the hips. The bowel gas pattern is no rmal. IMPRESSION: 1. Bilateral nephrolithiasis. Reviewed, dictated and finalized at [facility].
--- NOTE | 2021-06-04 06:28 | WPDANESEPPF ---
Anes - Initial Pre Proc Eval Procedure: Operation Date: 06/04/21 07:30 Proposed Procedures p Left Renal Extracorporeal Shock Wave Lithotripsy - Neeraj Taylor MD Date/Time: 06/04/21 06:28 Surgeon: Neeraj Taylor MD Pre Op Diagnosis: left renal kidney stones Patient Data Age: 70 Gender: M Height: 1.78 m Weight: 84 kg Allergies Allergy/AdvReac Type Severity Reaction Status Date / Time No Known Allergies Allergy Unverified 05/21/21 09:37 Home Medications Medication Instructions Recorded Confirmed Type buspirone 15 mg tablet 15 mg PO BID 01/08/20 05/21/21 History fluticasone propionate 50 2 spray NASAL DAILY 01/08/20 05/21/21 History mcg/actuation nasal spray,suspension latanoprost 0.005 % eye drops 1 drop EACH EYE HS 01/08/20 05/21/21 History Multivitamin 50 Plus 1 tab-cap PO QAM 09/15/20 05/21/21 History aspirin 81 mg PO QAM 09/15/20 05/21/21 History magnesium 400 mg PO DAILY 09/15/20 05/21/21 History rosuvastatin 40 mg PO HS 09/15/20 05/21/21 History Vascepa 2,000 mg PO BID 11/16/20 05/21/21 History ascorbic acid (vitamin C) 1,000 mg 1 g PO DAILY 02/09/21 05/21/21 History tablet cetirizine 10 mg tablet 10 mg PO DAILY 02/09/21 05/21/21 History cholecalciferol (vitamin D3) 50 50 mcg PO DAILY 02/09/21 05/21/21 History mcg (2,000 unit) capsule glucosamine HCl 500 mg tablet 1,000 mg PO DAILY 02/09/21 05/21/21 History pyridoxine (vitamin B6) 100 mg 100 mg PO DAILY 02/09/21 05/21/21 History tablet sertraline 100 mg PO QAM 02/24/21 05/21/21 History metoprolol succinate 50 mg PO QAM 04/26/21 05/21/21 History quinapril 40 mg PO QAM 04/26/21 05/21/21 History omeprazole 40 mg PO QAM 05/21/21 05/21/21 History Patient hx anesthesia problems: none Family hx anesthesia problems: none [facility] Past Medical History Medical History CAD (coronary artery disease) Depression with anxiety Dupuytren's contracture of right hand Gastro-esophageal reflux disease without esophagitis Hypertension with heart disease Mild chronic obstructive pulmonary disease Mixed hyperlipidemia MARTHA (obstructive sleep apnea) Surgical History Surgical History History of appendectomy History of lithotripsy Status post cataract extraction Status post lumbar spinal fusion Family History Family History Mother Hypertension HLD (hyperlipidemia) Lung cancer Father Cerebrovascular accident Social History Social History Smoking packs per day: 1 Smoking cigarettes per day: 20.0 Years smoked: 30 Smoking pack-years: 30.00 Smoking status: Former smoker Tobacco type: cigarettes and cigars Second hand tobacco smoke exposure: No Smoking end date: 11/30/94 Additional smoking assessment comments: CURRENTLY CIGAR- 2-3/DAY, X 15 YEARS. QUIT CIGARETTES 1994 Alcohol intake: current Drinks per week: 2 Substance use: never Substance use type: does not use Living arrangements: with family Additional living arrangements comments: AND SON Gender identity (if verbalized by the patient): Male Spiritual care concerns: No Anes - Eval Final PreProcedure Day of Procedure 06/04/21 06:28 Patient weight: overweight Heart: regular rate and rhythm Lungs: clear to auscultation Airway: Mallampati scale class II Neurological: alert and oriented Last oral intake: >/= 8 hours ASA classification: III Emergent: no Anesthetic plan: proceed Anesthesia type and monitoring: general LMA and standard monitoring Informed Consent: The patient's anesthetic plan and its attendant risks and benefits were discussed with the patient/family/POA. Questions were solicited and answers provided to the satisfaction of the patient/family/POA.
[2021-06-04] MEDS: LACTATED RINGERS 1,000 ML 30 ML IV CONT ×2 (07:00→08:19)
--- NOTE | 2021-06-04 07:24 | WPDHPUPDATE1 ---
History and Physical Update Update Date/Time: 06/04/21 07:24 History and Physical has been reviewed, including an updated exam of the patient. There are NO changes in the patient's condition. Risks, benefits, and alternatives have been discussed and questions answered. Patient agrees to proceed with procedure. Proceed with left renal eswl
[2021-06-04] MEDS: ceFAZolin 2 GM/D5W 50 ML 2 GM/50 ML BAG IVPB (07:34)
--- NOTE | 2021-06-04 08:15 | W.PM.PROC2 ---
Procedure Note - Detailed Date of Procedure 06/04/21 Pre-op Diagnosis left renal kidney stones Post-op Diagnosis same Procedure Performed Lithotripsy of left renal calculi 500 shocks to upper pole stone 2000 shocks to lower pole collection Surgeon Neeraj Taylor MD Description of Procedure patient is taken the operative suite and correctly identified. Once anesthesia was obtained the upper pole stone was localized. Five hundred shocks were given to this. We then repositioned the patient to fragment the lower pole stones. Two thousand shocks were given to this area. There appeared to be fairly good fragmentation. Patient is taken recovery room stable condition. Follow-up in about 10 days with KUB. Drains No Packing No Pathology none sent Complications No immediate complications Condition stable Disposition PACU
== END 2021-06-04 09:55 | disposition home or self-care (01) ==
PROVIDERS: PCP Family Medicine; Visit Provider Urology
PROC: (CPT 50590; principal; 2021-06-04 07:30)
DX: N20.0 Calculus of kidney (principal); I25.10 Atherosclerotic heart disease of native coronary artery without angina pectoris; I11.0 Hypertensive heart disease with heart failure; E78.2 Mixed hyperlipidemia; J44.9 Chronic obstructive pulmonary disease, unspecified; G47.33 Obstructive sleep apnea (adult) (pediatric); F41.8 Other specified anxiety disorders; K21.9 Gastro-esophageal reflux disease without esophagitis; Z79.82 Long term (current) use of aspirin; F17.290 Nicotine dependence, other tobacco product, uncomplicated
CPT/HCPCS: 50590; 36415; 74018; 85610; 85730; 87086; J0690; J1100; J2405; J2704; J7120

== ENCOUNTER 2021-06-15 10:47 | Outpatient (CLI) | payer BC, SELFPAY ==
--- NOTE | ~2021-06-15 | XR_ITS ---
XR abdomen/kub 1V 06/15/2021 11:10 Indication: Follow-up lithotripsy Procedure: KUB Comparison: 06/04/2021 Findings: There are bilateral renal stones, largest in the upper pole of the right kidney measuring 2 .2 cm greatest dimension. Bowel gas pattern is nonobstructive. Lung bases are unremarkable. Severe ramez mbar spondylosis. There are pelvic phleboliths. Impression: 1: Bilateral nephrolithiasis. Reviewed, dictated and finalized at [facility]. Impression: 1: Bilateral nephrolithiasis.
== END 2021-06-15 10:48 | disposition home or self-care (01) ==
LOC: ANHIMG 10:51
PROVIDERS: PCP Family Medicine; Visit Provider Urology
DX: N20.0 Calculus of kidney (principal)
CPT/HCPCS: 74018

== ENCOUNTER 2021-06-30 15:21 | Outpatient (CLI) | payer BC, SELFPAY ==
--- NOTE | ~2021-06-30 | XR_ITS ---
EXAMINATION: XR abdomen/kub 1V DATE: 06/30/2021 15:38 INDICATION: Calculus of kidney. TECHNIQUE: A supine view of the abdomen on 2 radiographs was obtained. COMPARISON: CT abdomen and pelvis 02/22/2021 FINDINGS: There are no dilated loops of bowel. There is a 2.3 cm staghorn calculus in right kidney up per pole. There is a 10 mm stone in proximal right ureter. There are at least 7 stones in left kidney measuring up to 4 mm. There are vascular calcifications in the pelvis. IMPRESSION: 1. Stones in the kidneys and proximal right ureter. Reviewed, dictated and finalized at [facility].
== END 2021-06-30 15:22 | disposition home or self-care (01) ==
LOC: ANHIMG 15:23
PROVIDERS: PCP Family Medicine; Visit Provider Urology
DX: N20.0 Calculus of kidney (principal); N20.1 Calculus of ureter
CPT/HCPCS: 74018

== ENCOUNTER 2021-07-14 09:44 | Outpatient (CLI) | payer BC, SELFPAY ==
--- NOTE | ~2021-07-14 | XR_ITS ---
EXAMINATION: XR abdomen/kub 1V INDICATION: Calculus of kidney TECHNIQUE: Supine views of the abdomen were obtained on 2 radiographs. COMPARISON: CT from today and radiographs dated 06/30/2021 FINDINGS: There is an unchanged 10 mm stone in the proximal right ureter projecting at the level of t he L3-4 disc space. Bilateral nephrolithiasis is unchanged. The bowel gas pattern is normal. There is severe lumbar spondylosis. IMPRESSION: 1. Stable stone in the proximal right ureter and bilateral nephrolithiasis. Reviewed, dictated and finalized at [facility].
--- NOTE | ~2021-07-14 | CT_ITS ---
EXAMINATION: CT abdomen pelvis wo con DATE: 07/14/2021 10:20 INDICATION: Calculus of kidney TECHNIQUE: Computed tomography (CT) of the abdomen and pelvis was performed without intravenous contr ast. The dose-length product (DLP) was 242.66 mGy-cm. Automated exposure control and iterative recons truction technique were employed. COMPARISON: 02/22/2021 FINDINGS: The lung bases are clear. The heart size is normal. The liver, spleen, pancreas, gallbladde r, and adrenal glands are normal. Nonobstructing stones of right kidney measure up to 12 mm in the up per pole. Nonobstructing stones of the left kidney measure up to 6 mm in the lower pole. There is a 4 mm x 8 mm stone in the proximal right ureter without significant hydronephrosis. There are stones me asuring up to 11 mm x 3 mm in the urinary bladder. There is calcified atherosclerosis of the aorta an d many of the other arteries. No pathologically enlarged abdominal or pelvic lymph nodes are identifi ed. There is no free intraperitoneal gas or evidence of bowel obstruction. Colonic diverticulosis is present without evidence of diverticulitis. There is severe lumbar spondylosis. A small fat-containin g umbilical hernia is noted. IMPRESSION: 1. 4 mm x 8 mm stone in the proximal right ureter which appears stable in position compared to the ra diograph dated 06/30/2021. 2. Bilateral nephrolithiasis. Reviewed, dictated and finalized at [facility]. IMPRESSION: 1. 4 mm x 8 mm stone in the proximal right ureter which appears stable in posit ion compared to the radiograph dated 06/30/2021. 2. Bilateral nephrolithiasis.
== END 2021-07-14 09:45 | disposition home or self-care (01) ==
LOC: ANHIMG 09:49
PROVIDERS: PCP Family Medicine; Visit Provider Urology
DX: N20.2 Calculus of kidney with calculus of ureter (principal)
CPT/HCPCS: 74018; 74176

== ENCOUNTER 2021-07-20 09:23 | Outpatient (CLI) | payer BC, SELFPAY ==
[2021-07-20 10:02] LABS: Prothrombin Time 12.9 Seconds (11.1-14.7)
[2021-07-20 10:03] LABS: Partial Thromboplastin Time 28.4 SECONDS (22.3-36.8)
== END 2021-07-20 09:24 | disposition home or self-care (01) ==
LOC: ANHSURGERY 09:27
PROVIDERS: PCP Family Medicine; Visit Provider Urology
DX: N20.1 Calculus of ureter (principal); Z01.818 Encounter for other preprocedural examination
CPT/HCPCS: 36415; 85610; 85730; 87086

== ENCOUNTER 2021-07-23 03:21 | Day surgery (SDC) | payer BC, SELFPAY ==
[2021-07-19 12:11] VITALS: BMI 26.5
--- NOTE | 2021-07-22 14:01 | WPDANESEPPF ---
Anes - Initial Pre Proc Eval Procedure: Operation Date: 07/23/21 09:30 Proposed Procedures p Right Ureteral Extracorporeal Shock Wave Lithotripsy - Neeraj Taylor MD s Possible Cystoscopy, Right Retrograde Pyelogram, Right Ureteroscopy With Right Stone Extraction, Possible Right Stent Placement - Neeraj Taylor MD s Possible Holmium Laser - Neeraj Taylor MD Date/Time: 07/22/21 14:01 Surgeon: Neeraj Taylor MD Pre Op Diagnosis: Rt Ureteral Stone Patient Data Age: 70 Gender: M Height: 1.78 m Weight: 83.95 kg Allergies Allergy/AdvReac Type Severity Reaction Status Date / Time No Known Allergies Allergy Verified 07/23/21 07:50 Home Medications Medication Instructions Recorded Confirmed Type buspirone 15 mg tablet 15 mg PO BID 01/08/20 07/19/21 History fluticasone propionate 50 2 spray NASAL DAILY 01/08/20 07/23/21 History mcg/actuation nasal spray,suspension latanoprost 0.005 % eye drops 1 drop EACH EYE HS 01/08/20 07/23/21 History Multivitamin 50 Plus 1 tab-cap PO QAM 09/15/20 07/23/21 History aspirin 81 mg PO QAM 09/15/20 07/19/21 History magnesium 400 mg PO DAILY 09/15/20 07/23/21 History rosuvastatin 40 mg PO HS 09/15/20 07/23/21 History Vascepa 2,000 mg PO BID 11/16/20 07/23/21 History ascorbic acid (vitamin C) 1,000 mg 1 g PO DAILY 02/09/21 07/19/21 History tablet cetirizine 10 mg tablet 10 mg PO DAILY 02/09/21 07/23/21 History cholecalciferol (vitamin D3) 50 50 mcg PO DAILY 02/09/21 07/23/21 History mcg (2,000 unit) capsule glucosamine HCl 500 mg tablet 1,000 mg PO DAILY 02/09/21 07/23/21 History pyridoxine (vitamin B6) 100 mg 100 mg PO DAILY 02/09/21 07/23/21 History tablet sertraline 100 mg PO QAM 02/24/21 07/23/21 History metoprolol succinate 50 mg PO QAM 04/26/21 07/23/21 History quinapril 40 mg PO QAM 04/26/21 07/23/21 History omeprazole 40 mg PO QAM 05/21/21 07/23/21 History Patient hx anesthesia problems: none Family hx anesthesia problems: none Results Review: All pre-operative results and documents have been reviewed as part of the pre-operative evaluation. [facility] Past Medical History Medical History (Updated 07/22/21 @ 14:02 by Eric Waddell MD) Anxiety CAD (coronary artery disease) COPD (chronic obstructive pulmonary disease) Depression Depression with anxiety Dupuytren's contracture of right hand Gastro-esophageal reflux disease without esophagitis Hx of myocardial infarction Hypertension with heart disease Mild chronic obstructive pulmonary disease Mixed hyperlipidemia MARTHA (obstructive sleep apnea) Overweight (BMI 25.0-29.9) Surgical History Surgical History History of appendectomy History of lithotripsy Status post cataract extraction Status post lumbar spinal fusion Family History Family History Mother Hypertension HLD (hyperlipidemia) Lung cancer Father Cerebrovascular accident Social History Social History Smoking packs per day: 1 Smoking cigarettes per day: 20.0 Years smoked: 30 Smoking pack-years: 30.00 Smoking status: Former smoker Tobacco type: cigarettes Second hand tobacco smoke exposure: No Smoking end date: 12/19/94 Additional smoking assessment comments: CURRENTLY 2-3 CIGARS/DAY Alcohol intake: current Drinks per week: 2 Substance use: never Substance use type: does not use Living arrangements: with family Additional living arrangements comments: Gender identity (if verbalized by the patient): Male Sexual Orientation (if Verbalized by the Patient): Straight or Heterosexual Spiritual care concerns: No Anes - Eval Final PreProcedure Day of Procedure 07/22/21 14:01 Patient weight: overweight Heart: regular rate and rhythm Lungs: clear to auscultation and normal air movement Airway: Mallam
[2021-07-23] VITALS (7 sets, daily range): BP systolic 101–146; BP diastolic 53–74; PULSE 58–84; RESP 12–18; TEMP 36.3–36.6; O2SAT 96–100; BMI 26.5
--- NOTE | ~2021-07-23 | XR_ITS ---
EXAMINATION: XR abdomen/kub 1V DATE: 07/23/2021 07:43 INDICATION: Kidney stone. TECHNIQUE: A supine view of the abdomen on 2 radiographs was obtained. COMPARISON: Abdomen radiographs 07/14/2021, CT abdomen and pelvis 07/14/2021 FINDINGS: There are no dilated loops of bowel. There is a staghorn calculus in right kidney upper alaina e measuring 19 mm. There is a 9 x 4 mm stone in right ureter at L4. There are at least 7 stones in le ft kidney measuring up to 4 mm. There are stones in the bladder. IMPRESSION: 1. Stones in the kidneys, proximal right ureter, and bladder. Reviewed, dictated and finalized at [facility].
--- NOTE | 2021-07-23 07:49 | SUR.PREOP ---
PT ARRIVED FROM [facility]
[2021-07-23] MEDS: LACTATED RINGERS 1,000 ML 30 ML IV CONT (08:13)
--- NOTE | 2021-07-23 08:56 | WPDHPUPDATE1 ---
History and Physical Update Update Date/Time: 07/23/21 08:56 History and Physical has been reviewed, including an updated exam of the patient. There are NO changes in the patient's condition. Risks, benefits, and alternatives have been discussed and questions answered. Patient agrees to proceed with procedure. Proceed with ESWL of right ureteral calculus, possible cystoscopy, retrograde, right ureteroscopy with holmium laser, right stent placement.
[2021-07-23] MEDS: ceFAZolin 2 GM/D5W 50 ML 2 GM/50 ML BAG IVPB (10:01)
--- NOTE | 2021-07-23 10:16 | W.PM.PROC2 ---
Procedure Note - Detailed Date of Procedure 07/23/21 Pre-op Diagnosis Rt Ureteral Stone Post-op Diagnosis same Procedure Performed ESWL right ureteral calculus 8 x 4 mm Surgeon Neeraj Taylor MD Anesthesia general Description of Procedure Patient is taken the operative suite and correctly identified. Once anesthesia was obtained stone was localized in both planes. Three thousand shocks were given the stone. Stone appeared to fragment fairly well as it spread out. Patient was taken recovery stable condition. A follow-up in 10-14 days with KUB. Drains No Packing No Pathology none sent Complications No immediate complications Condition stable Disposition PACU
== END 2021-07-23 11:52 | disposition home or self-care (01) ==
PROVIDERS: PCP Family Medicine; Visit Provider Urology
PROC: (CPT 50590; principal; 2021-07-23 09:30)
DX: N20.1 Calculus of ureter (principal); Z79.82 Long term (current) use of aspirin; I25.10 Atherosclerotic heart disease of native coronary artery without angina pectoris; J44.9 Chronic obstructive pulmonary disease, unspecified; F41.8 Other specified anxiety disorders; K21.9 Gastro-esophageal reflux disease without esophagitis; I25.2 Old myocardial infarction; E78.2 Mixed hyperlipidemia; G47.33 Obstructive sleep apnea (adult) (pediatric); Z87.891 Personal history of nicotine dependence
CPT/HCPCS: 50590; 36415; 74018; 85610; 85730; 87086; A9270; J0690; J1100; J2405; J2704; J3010; J7120

== ENCOUNTER 2021-08-03 10:39 | Outpatient (CLI) | payer BC, SELFPAY ==
--- NOTE | ~2021-08-03 | XR_ITS ---
EXAMINATION: XR abdomen/kub 1V EXAM DATE: 08/03/2021 10:55 INDICATION: Kidney stone. Lithotripsy. TECHNIQUE: Frontal projection of the upper abdomen, frontal projection lower abdomen/pelvis for inter pretation. Comparison is made to prior examination from 07/23/2021. FINDINGS: Bilateral nephrolithiasis, largest cluster on the right unchanged. Previously seen calcifi cation overlying the right proximal ureter no longer in this location. Uncertain whether or not is in the pelvis given the moderate amount of rectal stool and gas. There is advanced lumbar disc disease. No obstruction. IMPRESSION: Bilateral nephrolithiasis. Reviewed, dictated and finalized at [facility]. IMPRESSION: Bilateral nephrolithiasis.
== END 2021-08-03 10:40 | disposition home or self-care (01) ==
LOC: ANHIMG 10:43
PROVIDERS: PCP Family Medicine; Visit Provider Urology
DX: N20.2 Calculus of kidney with calculus of ureter (principal)
CPT/HCPCS: 74018

== ENCOUNTER 2021-08-24 08:39 | Outpatient (CLI) | payer BC, SELFPAY ==
--- NOTE | ~2021-08-24 | XR_ITS ---
EXAMINATION: XR lumbar spine 2-3V EXAM DATE: 08/24/2021 08:58 INDICATION: M54.50 - Low back pain, unspecified. Palpable Mass To Mid Lum . TECHNIQUE: Lumber spine frontal, lateral, lateral L5-S1 projections for interpretation. There is no prior study for comparison. FINDINGS: There are laminectomy defects L2-L5. There is severe disc disease from L1 through L5, moder ate to severe at L5-S1. There is 2-3 mm retrolisthesis L2 on L3. The vertebral bodies are otherwise a ligned. Moderate sized bridging lumbar endplate osteophytes. Minimal lumbar levoscoliosis. There is m oderate to severe lumbar facet arthropathy. There is moderate aortic arterial sclerosis. History no palpable mass 2 mid lumbar region. There is a slight bulge in the posterior skin contour o verlying the L2-3 level which is nonspecific. IMPRESSION: Advanced lumbar spondylosis. Nonspecific soft tissue bulge posterior to mid lumbar regio n, could be lipoma or postoperative scarring. Reviewed, dictated and finalized at location B. IMPRESSION: Advanced lumbar spondylosis. Nonspecific soft tissue bulge posteri or to mid lumbar region, could be lipoma or postoperative scarring.
== END 2021-08-24 08:40 | disposition home or self-care (01) ==
LOC: ANHIMG 08:41
PROVIDERS: PCP Family Medicine; Visit Provider Family Medicine
DX: M47.896 Other spondylosis, lumbar region (principal)
CPT/HCPCS: 72100

== ENCOUNTER → 2021-09-08 08:36 | Outpatient (CLI) | payer BC, SELFPAY ==
[2021-09-08 18:11] LABS: SARS-CoV-2 RNA PCR Negative
== END ==
PROVIDERS: PCP Family Medicine; Visit Provider Physician Assistant
DX: R05.9 Cough, unspecified (principal); Z20.822 Contact with and (suspected) exposure to COVID-19
CPT/HCPCS: C9803; U0003; U0005

== ENCOUNTER 2022-03-31 00:28 | Day surgery (SDC) | payer BC, SELFPAY ==
[2022-03-07 14:10] VITALS: BMI 27.1
[2022-03-17 14:09] VITALS: BMI 27.1
[2022-03-31 10:02] VITALS: BP 129/71; PULSE 72; RESP 16; TEMP 36.3; O2SAT 98
[2022-03-31] MEDS: LACTATED RINGERS 1,000 ML 150 ML IV CONT (10:13)
--- NOTE | 2022-03-31 10:39 | PM.IMHP ---
H&P: HPI History of Present Illness Date/Time: 03/31/22 10:39 Chief Complaint: Neoplasia screening. Narrative: This is a 71-year-old white male patient presents for screening colonoscopy. Patient has a history of colon polyps. He has had several previous colonoscopies in 2017 with colon polyps and previously in 2011. His current weight appetite and bowel movements are normal. He denies abdominal pain. He has had no bleeding. Family history is noncontributory. Patient presents today for neoplasia screening colonoscopy. Review of Systems Review of Systems: Review of systems noncontributory. [facility] Past Medical History Medical History Anxiety CAD (coronary artery disease) COPD (chronic obstructive pulmonary disease) Depression Depression with anxiety Dupuytren's contracture of right hand Gastro-esophageal reflux disease without esophagitis Hx of myocardial infarction Hypertension with heart disease Mild chronic obstructive pulmonary disease Mixed hyperlipidemia MARTHA (obstructive sleep apnea) Overweight (BMI 25.0-29.9) Surgical History Surgical History History of appendectomy History of lithotripsy Status post cataract extraction Status post lumbar spinal fusion Family History Family History Mother Hypertension HLD (hyperlipidemia) Lung cancer Father Cerebrovascular accident Social History Social History Smoking packs per day: 1 Smoking cigarettes per day: 20.0 Years smoked: 50 Smoking pack-years: 50.00 Smoking status: Current every day smoker Tobacco type: cigarettes and cigars Second hand tobacco smoke exposure: No Smoking end date: 12/19/94 Additional smoking assessment comments: SMOKED CIGARETTES X30 YEARS, NOW SMOKES 3 CIGARS A DAY Alcohol intake: current Drinks per week: 2 Substance use: never Substance use type: does not use Living arrangements: with family Additional living arrangements comments: Gender identity (if verbalized by the patient): Male Sexual Orientation (if Verbalized by the Patient): Straight or Heterosexual Spiritual care concerns: No Meds Home Medications and Allergies Home Medications Medication Instructions Recorded Confirmed Type buspirone 15 mg tablet 15 mg PO BID 01/08/20 03/17/22 History fluticasone propionate 50 2 spray intranasal DAILY 01/08/20 03/17/22 History mcg/actuation nasal spray,suspension (Flonase Allergy Relief) latanoprost 0.005 % eye drops 1 drop ophthalmic (eye) HS 01/08/20 03/17/22 History Multivitamin 50 Plus 1 tab-cap PO QAM 09/15/20 03/17/22 History aspirin 81 mg tablet,delayed 81 mg PO QAM 09/15/20 03/17/22 History release magnesium 200 mg tablet 400 mg PO DAILY 09/15/20 03/17/22 History rosuvastatin 40 mg tablet 40 mg PO HS 09/15/20 03/17/22 History Vascepa 2,000 mg PO BID 11/16/20 03/17/22 History ascorbic acid (vitamin C) 1,000 mg 1 g PO DAILY 02/09/21 03/17/22 History tablet cetirizine 10 mg tablet (Zyrtec) 10 mg PO DAILY 02/09/21 03/17/22 History cholecalciferol (vitamin D3) 50 50 mcg PO DAILY 02/09/21 03/17/22 History mcg (2,000 unit) capsule glucosamine HCl 500 mg tablet 1,000 mg PO DAILY 02/09/21 03/17/22 History pyridoxine (vitamin B6) 100 mg 100 mg PO DAILY 02/09/21 03/17/22 History tablet sertraline 100 mg tablet 100 mg PO QAM 02/24/21 03/17/22 History metoprolol succinate 50 mg 50 mg PO QAM 04/26/21 03/31/22 History tablet,extended release 24 hr omeprazole 40 mg capsule,delayed 40 mg PO QAM #90 caps 03/29/22 03/31/22 Rx release quinapril 40 mg tablet 40 mg PO QAM #90 tabs 03/29/22 03/31/22 Rx Allergies Allergy/AdvReac Type Severity Reaction Status Date / Time No Known Allergies Allergy Verified 03/31/22 10:00 Vital Signs Vital Sign
--- NOTE | 2022-03-31 10:44 | WPDANESEPPF ---
Anes - Initial Pre Proc Eval Procedure: Operation Date: 03/31/22 10:45 Proposed Procedures p Screening Colonoscopy - Wes Gupta MD Date/Time: 03/31/22 10:44 Surgeon: Wes Gupta MD Pre Op Diagnosis: hx of colon polyps Patient Data Age: 71 Gender: M Height: 1.78 m Weight: 83.3 kg Last Vital Signs Temp 97.4 F L 03/31/22 10:02 Pulse 72 03/31/22 10:02 Resp 16 03/31/22 10:02 BP 129/71 03/31/22 10:02 Pulse Ox 98 03/31/22 10:02 O2 Del Method Room Air 03/31/22 10:02 Allergies Allergy/AdvReac Type Severity Reaction Status Date / Time No Known Allergies Allergy Verified 03/31/22 10:00 Home Medications Medication Instructions Recorded Confirmed Type buspirone 15 mg tablet 15 mg PO BID 01/08/20 03/17/22 History fluticasone propionate 50 2 spray intranasal DAILY 01/08/20 03/17/22 History mcg/actuation nasal spray,suspension (Flonase Allergy Relief) latanoprost 0.005 % eye drops 1 drop ophthalmic (eye) HS 01/08/20 03/17/22 History Multivitamin 50 Plus 1 tab-cap PO QAM 09/15/20 03/17/22 History aspirin 81 mg tablet,delayed 81 mg PO QAM 09/15/20 03/17/22 History release magnesium 200 mg tablet 400 mg PO DAILY 09/15/20 03/17/22 History rosuvastatin 40 mg tablet 40 mg PO HS 09/15/20 03/17/22 History Vascepa 2,000 mg PO BID 11/16/20 03/17/22 History ascorbic acid (vitamin C) 1,000 mg 1 g PO DAILY 02/09/21 03/17/22 History tablet cetirizine 10 mg tablet (Zyrtec) 10 mg PO DAILY 02/09/21 03/17/22 History cholecalciferol (vitamin D3) 50 50 mcg PO DAILY 02/09/21 03/17/22 History mcg (2,000 unit) capsule glucosamine HCl 500 mg tablet 1,000 mg PO DAILY 02/09/21 03/17/22 History pyridoxine (vitamin B6) 100 mg 100 mg PO DAILY 02/09/21 03/17/22 History tablet sertraline 100 mg tablet 100 mg PO QAM 02/24/21 03/17/22 History metoprolol succinate 50 mg 50 mg PO QAM 04/26/21 03/31/22 History tablet,extended release 24 hr omeprazole 40 mg capsule,delayed 40 mg PO QAM #90 caps 03/29/22 03/31/22 Rx release quinapril 40 mg tablet 40 mg PO QAM #90 tabs 03/29/22 03/31/22 Rx Patient hx anesthesia problems: none Family hx anesthesia problems: none Results Review: All pre-operative results and documents have been reviewed as part of the pre-operative evaluation. [facility] Past Medical History Medical History Anxiety CAD (coronary artery disease) COPD (chronic obstructive pulmonary disease) Depression Depression with anxiety Dupuytren's contracture of right hand Gastro-esophageal reflux disease without esophagitis Hx of myocardial infarction Hypertension with heart disease Mild chronic obstructive pulmonary disease Mixed hyperlipidemia MARTHA (obstructive sleep apnea) Overweight (BMI 25.0-29.9) Surgical History Surgical History History of appendectomy History of lithotripsy Status post cataract extraction Status post lumbar spinal fusion Family History Family History Mother Hypertension HLD (hyperlipidemia) Lung cancer Father Cerebrovascular accident Social History Social History Smoking packs per day: 1 Smoking cigarettes per day: 20.0 Years smoked: 50 Smoking pack-years: 50.00 Smoking status: Current every day smoker Tobacco type: cigarettes and cigars Second hand tobacco smoke exposure: No Smoking end date: 12/19/94 Additional smoking assessment comments: SMOKED CIGARETTES X30 YEARS, NOW SMOKES 3 CIGARS A DAY Alcohol intake: current Drinks per week: 2 Substance use: never Substance use type: does not use Living arrangements: with family Additional living arrangements comments: Gender identity (if verbalized by the patient): Male Sexual Orientation (if Verbalized by the Patient): Straight or Heterosexual
[2022-03-31 11:15] VITALS: BP 107/68; PULSE 61; RESP 15; O2SAT 98
[2022-03-31 11:25] VITALS: BP 130/73; PULSE 65; RESP 19; O2SAT 99
[2022-03-31 11:35] VITALS: BP 126/78; PULSE 62; RESP 22; O2SAT 100
== END 2022-03-31 11:40 | disposition home or self-care (01) ==
PROVIDERS: PCP Family Medicine; Visit Provider Internal Medicine Gastroenterology
PROC: 0DJD8ZZ Inspection of Lower Intestinal Tract, Via Natural or Artificial Opening Endoscopic (ICD-10-PCS; CPT 45378; principal; 2022-03-31 10:45)
DX: Z12.11 Encounter for screening for malignant neoplasm of colon (principal); D12.3 Benign neoplasm of transverse colon; D12.5 Benign neoplasm of sigmoid colon; K63.5 Polyp of colon; K57.30 Diverticulosis of large intestine without perforation or abscess without bleeding; K64.8 Other hemorrhoids; I25.10 Atherosclerotic heart disease of native coronary artery without angina pectoris; J44.9 Chronic obstructive pulmonary disease, unspecified; F41.8 Other specified anxiety disorders; I11.9 Hypertensive heart disease without heart failure; I25.2 Old myocardial infarction; E78.2 Mixed hyperlipidemia; G47.33 Obstructive sleep apnea (adult) (pediatric); F17.210 Nicotine dependence, cigarettes, uncomplicated; F17.290 Nicotine dependence, other tobacco product, uncomplicated
CPT/HCPCS: 45385; 88305; J2704; J7120

== ENCOUNTER 2023-02-28 01:45 | Day surgery (SDC) | payer BC, SELFPAY ==
[2023-02-27 16:02] VITALS: BMI 28.7
[2023-02-28] VITALS (9 sets, daily range): BP systolic 95–117; BP diastolic 56–72; PULSE 50–117; RESP 12–18; TEMP 36.4; O2SAT 96–99; BMI 29.1
[2023-02-28 07:29] LABS: Basophils Absolute Auto 0.1 K/mm3 (0.0-0.1); Basophils Percent Auto 1.1 % (0.2-1.2); Eosinophils Absolute Auto 0.4 K/mm3 (0-0.3); Eosinophils Percent Auto 6.1 % (0-4.4); Hematocrit 33.4 % (42.0-52.0); Hemoglobin 11.2 g/dL (14.0-18.0); Immature Granulocyte Absolute 0.03 K/mm3 (0.00-0.031); Immature Granulocyte Percent A 0.5 % (0-0.5); Lymphocytes Percent Auto 37.6 % (18.3-44.2); Mean Corpuscular HGB Conc 33.5 g/dl (32-36); Mean Corpuscular Hemoglobin 31.3 pg (26-34); Mean Corpuscular Volume 93.3 fl (80-100); Mean Platelet Volume 8.8 fl (7.4-10.4); Monocytes Absolute Auto 0.8 K/mm3 (0.1-0.6); Monocytes Percent Auto 11.7 % (2.6-8.5); Neutrophils Absolute Auto 2.8 K/mm3 (1.3-6.7); Platelet Count Result 212 k/mm3 (150-375); Red Blood Count 3.58 M/mm3 (4.6-6.20); Red Cell Distribution Width 12.8 % (11.5-14.5); White Blood Count 6.4 K/mm3 (4.5-10.0)
[2023-02-28 07:40] LABS: Anion Gap 6 mmol/L (8-16); Blood Urea Nitrogen 32 mg/dL (9-20); Calcium 9.3 mg/dL (8.4-10.2); Carbon Dioxide 25 mmol/L (22-30); Chloride 107 mmol/L (98-107); Estimated CRCL calculation 36 ml/min; Estimated Glomerular Filt Rate 40; Glucose 100 mg/dL (65-110); Sodium 138 mmol/L (137-145)
--- NOTE | 2023-02-28 08:49 | WPDHPUPDATE1 ---
History and Physical Update Update Date/Time: 02/28/23 08:49 History and Physical has been reviewed, including an updated exam of the patient. There are NO changes in the patient's condition. Risks, benefits, and alternatives have been discussed and questions answered. Patient agrees to proceed with procedure.
--- NOTE | 2023-02-28 08:50 | WPDMODSED ---
Moderate Sedation Note-Pt Data Patient Data Diagnosis: Abnormal stress test Present Complaint: Abnormal stress test Procedure to be performed/Plan: Coronary angiography, LHC, +/- PCI Allergies Allergy/AdvReac Type Severity Reaction Status Date / Time No Known Allergies Allergy Verified 02/28/23 07:20 Home Medications Medication Instructions Recorded Confirmed Type buspirone 15 mg tablet 15 mg PO BID 01/08/20 02/27/23 History fluticasone propionate 50 2 spray intranasal DAILY 01/08/20 02/27/23 History mcg/actuation nasal spray,suspension (Flonase Allergy Relief) latanoprost 0.005 % eye drops 1 drop ophthalmic (eye) HS 01/08/20 02/27/23 History Multivitamin 50 Plus 1 tab-cap PO QAM 09/15/20 02/27/23 History aspirin 81 mg tablet,delayed 81 mg PO QAM 09/15/20 02/27/23 History release magnesium 200 mg tablet 400 mg PO DAILY 09/15/20 02/27/23 History rosuvastatin 40 mg tablet 40 mg PO HS 09/15/20 02/27/23 History Vascepa 2,000 mg PO BID 11/16/20 02/27/23 History ascorbic acid (vitamin C) 1,000 mg 1 g PO DAILY 02/09/21 02/27/23 History tablet cetirizine 10 mg tablet (Zyrtec) 10 mg PO DAILY 02/09/21 02/27/23 History cholecalciferol (vitamin D3) 50 50 mcg PO DAILY 02/09/21 02/27/23 History mcg (2,000 unit) capsule glucosamine HCl 500 mg tablet 1,000 mg PO DAILY 02/09/21 02/27/23 History pyridoxine (vitamin B6) 100 mg 100 mg PO DAILY 02/09/21 02/27/23 History tablet metoprolol succinate 50 mg 50 mg PO QAM 04/26/21 02/27/23 History tablet,extended release 24 hr omeprazole 40 mg capsule,delayed 40 mg PO QAM #90 caps 06/27/22 02/27/23 Rx release potassium citrate 10 mEq (1,080 2,160 mg PO BID 08/23/22 02/27/23 History mg) tablet,extended release lisinopril 40 mg tablet 40 mg PO DAILY #90 tabs 11/30/22 02/27/23 Rx fluoxetine 20 mg capsule 20 mg PO DAILY 02/27/23 02/27/23 History isosorbide mononitrate 30 mg 30 mg PO DAILY 02/27/23 02/27/23 History tablet,extended release 24 hr Current Medications: Active Medications Sodium Chloride (Normal Saline Iv) 500 mls @ 100 mls/hr IV CONT .Q5H [facility] Sedation/Anesthesia: No previous sedation/anesthesia problems (including family history). [facility] Past Medical History Medical History Anxiety CAD (coronary artery disease) COPD (chronic obstructive pulmonary disease) Depression Depression with anxiety Dupuytren's contracture of right hand Gastro-esophageal reflux disease without esophagitis Hx of myocardial infarction Hypertension with heart disease Melanoma Mild chronic obstructive pulmonary disease Mixed hyperlipidemia MARTHA (obstructive sleep apnea) Overweight (BMI 25.0-29.9) Surgical History Surgical History History of appendectomy History of lithotripsy Status post cataract extraction Status post lumbar spinal fusion Family History Family History Mother Hypertension HLD (hyperlipidemia) Lung cancer Father Cerebrovascular accident Social History Social History Smoking packs per day: 1 Smoking cigarettes per day: 20.0 Years smoked: 30 Smoking pack-years: 30.00 Smoking status: Current every day smoker Tobacco type: cigarettes and cigars Second hand tobacco smoke exposure: No Smoking end date: 12/19/94 Additional smoking assessment comments: quit in 1994 Alcohol intake: current Drinks per week: 2 Alcohol use details: 1 every couple of weeks Substance use: never Substance use type: does not use Lack of Transportation: No Lack of Food: Never True Current Housing: I Have Housing Concerned About Future Housing: No Difficulty Paying Gas/Electric Bills: No Difficulty Paying for Meds: No Currently Unemployed: No Education: High School Diploma/GED Difficulty w/ Childcare or Family C
--- NOTE | 2023-02-28 08:51 | WPDCARDPROC ---
Cardiac Cath Procedure Note Date of procedure:: 02/28/23 Performing physician:: CATHETERIZATION LABORATORY REPORT Procedure Date: 02/28/2023 Internet Security Specialist: Santos Escalona M.D., [facility]? Referring Physician: Cheo Arrieta M.D. ? Anesthesia: Versed and Fentanyl were ordered and given in my presence at 08:55, procedure ended at 09:15. Supervision of nurse monitored moderate sedation with Versed and Fentanyl was provided for 20 minutes. Total of Versed 1mg and Fentanyl 25mcg were administered by the Maintenance Advisor RN Bailey Lim. Pre-op Diagnosis: Coronary artery disease Post-op Diagnosis: 1. The distal LCX has a chronic subtotal occlusion, distal to this occlusion the vessel is small caliber. This is angiographically unchanged compared to prior angiogram. 2. There is a chronically occluded RCA branch which is probably the RPDA. There is no antegrade or retrograde filling to this vessel. This is angiographically unchanged compared to prior angiogram. 3. Mildly elevated left ventricular end-diastolic pressure of 21mmHg Procedure(s): 1. Moderate sedation 2. Ultrasound-guided access of the right radial artery 3. Coronary angiography 4. Left heart cath Access Site: Right radial artery Brief History and Clinical Indications: Patient is a 72-year-old male with known history of coronary artery disease who is referred for anginal symptoms in the setting of abnormal stress test. Prior cardiac cath in 2019 showed coronary artery disease with 100% occlusion of what appears to have been the RPDA without antegrade or retrograde filling, 100% occlusion with antegrade collateral filling of the terminal portion of the circumflex in the posterior segment. All risks, benefits and alternatives to left heart catheterization with or without percutaneous coronary intervention was discussed at length with the patient. Risk of complications including but not limited to bleeding, infection, arrhythmia, stroke, worsening kidney function, blood loss, groin hematoma, limb loss, emergency coronary artery bypass grafting, and even were discussed with the patient and all questions were answered. The patient understood and wished to proceed. Time out called, patient name, date of , medical record number, allergies, procedure performed, identify Internet Security Specialist, patient and staff member concurred with accurate data, procedure carried on. Findings: LEFT HEART CATHETERIZATION FINDINGS: 1. Left main: The left main coronary artery is widely patent without any significant obstructive disease. 2. Left anterior descending: There is an eccentric 30-40% stenosis in the proximal LAD. Remainder of the LAD has luminal irregularities without any significant obstructive angiographic disease. Diagonal branches are small caliber branches without obstructive disease. There is a large caliber Ramus without any obstructive disease. 3. Left circumflex: The proximal-mid LCX has mild diffuse disease. The distal LCX has a chronic subtotal occlusion, distal to this occlusion the vessel is small caliber. This is angiographically unchanged compared to prior angiogram. 4. Right coronary artery: The RCA is the dominant vessel. The RCA has an early bifurcation in the second portion of the artery. The RV marginal branch and posterolateral branch are free of significant disease. There is a chronically occluded branch which is probably the RPDA. There is no antegrade or retrograde filling to this vessel. This is angiographically unchanged compared to prior angiogram. 5. Left ventricle: A. End-diastolic pressure 21mmHg. B. LV gram deferred. C. No significant gradient across aortic valve on catheter pullback. Description of Procedure: Informed consent signed and placed in the chart. Patient transferred to laborer dairy farm room. Prepped and draped in usual sterile fashion. 2% lidocaine injected subcutaneously in right wrist area. 22-gauge venipuncture catheter used to access the right radial
== END 2023-02-28 12:20 | disposition home or self-care (01) ==
PROVIDERS: PCP Family Medicine; Visit Provider Internal Medicine
PROC: 4A023N7 Measurement of Cardiac Sampling and Pressure, Left Heart, Percutaneous Approach (ICD-10-PCS; CPT 93452; principal; 2023-02-28 08:30)
DX: I25.10 Atherosclerotic heart disease of native coronary artery without angina pectoris (principal); R94.39 Abnormal result of other cardiovascular function study; J44.9 Chronic obstructive pulmonary disease, unspecified; I11.9 Hypertensive heart disease without heart failure; E78.2 Mixed hyperlipidemia; G47.33 Obstructive sleep apnea (adult) (pediatric); F41.8 Other specified anxiety disorders; I25.2 Old myocardial infarction; K21.9 Gastro-esophageal reflux disease without esophagitis; Z87.891 Personal history of nicotine dependence; Z79.82 Long term (current) use of aspirin
CPT/HCPCS: 36415; 80048; 85025; 93458; A9270; C1769; C1887; C1894; J1644; J2250; J3010; J7040

== ENCOUNTER 2023-03-03 09:26 | Outpatient (CLI) | payer BC, SELFPAY ==
--- NOTE | ~2023-03-03 | US_ITS ---
EXAMINATION: US aorta [facility] scrn DATE: 03/03/2023 09:56 INDICATION: Coughing for screening for cardiovascular disorder with risk factors of hypertension, obe sity and prior myocardial infarction. TECHNIQUE: Grayscale, color Doppler, and pulsed Doppler images of the aorta and common iliac arteries were obtained. COMPARISON: None. FINDINGS: The proximal aorta measures 2.7 cm. The mid aorta measures 2.1 cm. The distal aorta measures 2.0 cm. The right common iliac artery measures 1.1 cm. The left common iliac artery measures 1.0 cm. Visualiz ed proximal inferior vena cava is normal. IMPRESSION: 1. Normal caliber abdominal aorta. Reviewed, dictated and finalized at location B.
== END 2023-03-03 09:27 | disposition home or self-care (01) ==
PROVIDERS: PCP Family Medicine; Visit Provider Family Medicine
DX: Z13.6 Encounter for screening for cardiovascular disorders (principal)
CPT/HCPCS: 76706

== ENCOUNTER 2023-09-12 11:51 | Outpatient (CLI) | payer BC, SELFPAY ==
--- NOTE | ~2023-09-12 | XR_ITS ---
Clinical Indication: Cough PA and lateral views of the chest: Comparison: 09/21/2015 Findings: The lungs are clear, without evidence of focal consolidation or pleural effusion. Cardiome diastinal silhouette is within normal limits. Bones and soft tissues are unremarkable. Impression: Normal chest. Reviewed, dictated and finalized at [facility]. D DAY CARE PROVIDER Impression: Normal chest.
[2023-09-12 13:00] LABS: Basophils Percent Auto 0.3 % (0.2-1.2); Eosinophils Absolute Auto 0.1 K/mm3 (0-0.3); Eosinophils Percent Auto 0.8 % (0-4.4); Hematocrit 28.9 % (42.0-52.0); Hemoglobin 9.5 g/dL (14.0-18.0); Immature Granulocyte Absolute 0.08 K/mm3 (0.00-0.031); Immature Granulocyte Percent A 0.7 % (0-0.5); Lymphocytes Absolute Auto 1.37 K/mm3 (0.9-3.2); Lymphocytes Percent Auto 12.6 % (18.3-44.2); Mean Corpuscular HGB Conc 32.9 g/dl (32-36); Mean Corpuscular Hemoglobin 30.7 pg (26-34); Mean Corpuscular Volume 93.5 fl (80-100); Mean Platelet Volume 8.9 fl (7.4-10.4); Monocytes Absolute Auto 1.6 K/mm3 (0.1-0.6); Monocytes Percent Auto 14.5 % (2.6-8.5); Neutrophils Absolute Auto 7.8 K/mm3 (1.3-6.7); Neutrophils Percent Auto 71.1 % (45.5-73.1); Platelet Count Result 295 k/mm3 (150-375); Red Blood Count 3.09 M/mm3 (4.6-6.20); Red Cell Distribution Width 15.2 % (11.5-14.5); White Blood Count 10.9 K/mm3 (4.5-10.0)
[2023-09-12 13:08] LABS: Appearance Urine Turbid (Clear); Bacteria Urine None Seen /hpf; Bilirubin Urine 1+ (Negative); Blood Urine 1+ (Negative); Color Urine Dark Yellow (Yellow); Glucose Urine UA Negative (Negative); Hyaline Casts Urine Present /lpf; Ketones Urine Negative (Negative); Leukocyte Esterase Ur Negative LEU/UL (Negative); Need Manual Microscopic Reviewed; Nitrate Urine Negative (Negative); Protein Urine 3+ mg/dL (Negative); RBC Urine 0-2 /hpf (0-2); Specific Grav Ur 1.015 (1.001-1.035); Squamous Epithelial Cell Urine Occasional /hpf (Few); WBC Urine 0-5 /hpf; pH Urine 5.5 (5.0-9.0)
[2023-09-12 13:10] LABS: Add Urine Microscopic? YES
[2023-09-12 13:10] LABS: Alanine Aminotransferase 298 U/L (6-50); Albumin Level 3.7 g/dL (3.5-5.1); Alkaline Phosphatase 741 U/L (38-126); Anion Gap 14 mmol/L (8-16); Aspartate Amino Transferase 188 U/L (17-59); Bilirubin,Total 2.7 mg/dL (0.2-1.3); Blood Urea Nitrogen 46 mg/dL (9-20); Calcium 8.7 mg/dL (8.4-10.2); Carbon Dioxide 15 mmol/L (22-30); Chloride 105 mmol/L (98-107); Estimated Glomerular Filt Rate 14; Glucose 128 mg/dL (65-110); Potassium 4.2 mmol/L (3.4-5.0); Sodium 134 mmol/L (137-145)
== END 2023-09-12 11:52 | disposition home or self-care (01) ==
PROVIDERS: PCP Family Medicine; Visit Provider Family Medicine
DX: R06.00 Dyspnea, unspecified (principal); N39.0 Urinary tract infection, site not specified; R53.81 Other malaise; R53.83 Other fatigue
CPT/HCPCS: 36415; 71046; 80053; 81001; 85025

== ENCOUNTER 2023-09-12 17:13 | Inpatient (IN) | payer BC, SELFPAY ==
--- NOTE | ~2023-09-12 | XR_ITS ---
EXAM: XR abdomen/kub 1V DATE: 09/12/2023 21:35 HISTORY: distal L ureteral stone? . COMPARISON: None available. FINDINGS: Clear lung bases. Normal bowel gas pattern. No organomegaly. Bilateral calcifications over lie the renal shadows. Multilevel degenerative disc disease in the lumbar spine. IMPRESSION: Bilateral nephrolithiasis. Urinary bladder calcifications described on the prior CT are n ot visible radiographically. Reviewed, dictated and finalized at location K. ORT ANALYST IMPRESSION: Bilateral nephrolithiasis. Urinary bladder calcifications described on the prior CT are not visible radiographically.
--- NOTE | ~2023-09-12 | CT_ITS ---
Non-contrast CT scan of the Abdomen and Pelvis Clinical indication: Left UVJ stone versus bladder stone Technique: 2.5 mm axial scans were obtained through the abdomen and pelvis without intravenous or or al contrast, with patient in prone position. Dose reduction technique was used on this scan by utiliz ing automated exposure control and iterative reconstruction technique. The dose-length product (DLP) was 249.53 mGy-cm. COMPARISON: 09/12/2023 Findings: Images through the lung bases reveal no abnormalities. Bilateral nonobstructing renal stones are stable from prior exam. The liver, spleen, pancreas, gallbladder, and adrenals appear normal. There are atherosclerotic calci fications of the aorta. There is no evidence of bowel obstruction. Images through the pelvis were performed. There is no evidence of ascites or lymphadenopathy. There a re two urinary bladder stones, measuring 3 mm and 5 mm, layering dependently in the anterior bladder given prone position. No stone present at the UVJ. Impression: Urinary bladder stones, as detailed above. No UVJ stone. Bilateral nonobstructing renal stones are unchanged. Reviewed, dictated and finalized at location M. MBLER BICYCLE Impression: Urinary bladder stones, as detailed above. No UVJ stone. Bilateral nonobstructing renal stones are unchanged.
--- NOTE | ~2023-09-12 | XR_ITS ---
EXAMINATION: XR ERCP DATE: 09/13/2023 15:19 INDICATION: Biliary duct dilatation. TECHNIQUE: 4 spot fluoroscopic images of the right upper quadrant were obtained during endoscopic ret rograde cholangiopancreatography (ERCP). Fluoroscopy exposure time was 108 seconds. COMPARISON: CT abdomen and pelvis 09/13/2023 FINDINGS: The endoscope is in the second portion the duodenum. Images demonstrate placement of an int ernal biliary stent. IMPRESSION: 1. Internal biliary stent in expected position. Please refer to the ERCP procedure note for additiona l details. Reviewed, dictated and finalized at location A. SION OPERATOR IMPRESSION: 1. Internal biliary stent in expected position. Please refer to the ERCP proced ure note for additional details.
--- NOTE | ~2023-09-12 | MR_ITS ---
EXAMINATION: MR MRCP wo/w con/w 3D wo ind DATE: 09/13/2023 11:10 INDICATION: Biliary dilatation. Hyperbilirubinemia. TECHNIQUE: Magnetic resonance imaging (MRI) of the abdomen was performed without and with 19 mL Multi Stevo intravenous contrast. Sequences included coronal T2-weighted FS FSE, coronal T2-weighted FSE, a xial T1-weighted LAVA, coronal FS FIESTA, axial dual-echo T1-weighted SPGR, coronal lava-FLEX, sagitt al T2-weighted FSE, axial T2-weighted FSE, and axial DWI. Thick-slab T2-weighted FSE images were obta ined for magnetic resonance cholangiopancreatography (MRCP). Maximum intensity projection 3-D reconst ructions of the volumetric data were created by the technologist. Postcontrast sequences included cor onal LAVA-flex and time course of axial T1-weighted LAVA. COMPARISON: CT abdomen and pelvis 09/13/2023 FINDINGS: ABDOMEN MRI: There is moderate intrahepatic biliary duct dilatation. The gallbladder is normal in siz e. The common duct is dilated to 15 mm . There is an ill-defined 24 mm mass of decreased T1-weighted signal intensity and contrast enhancement in the head of the pancreas. The adrenal glands are normal. There is cortical thinning of the kidneys. There are cysts in the kidneys measuring up to 6 mm. Ther e are no pathologically enlarged lymph nodes. There are no dilated loops of bowel. There is no free i ntraperitoneal fluid. ABDOMEN MRCP: There is intrahepatic and extrahepatic biliary duct dilatation. No choledocholithiasis. IMPRESSION: 1. 24 mm mass in the head of the pancreas, consistent with primary adenocarcinoma. 2. Intrahepatic and extrahepatic biliary duct dilatation secondary to the pancreatic mass. Reviewed, dictated and finalized at location A. A AND P TECHNICIAN IMPRESSION: 1. 24 mm mass in the head of the pancreas, consistent with primary adenocarcino ma. 2. Intrahepatic and extrahepatic biliary duct dilatation secondary to the pancr eatic mass.
--- NOTE | ~2023-09-12 | CT_ITS ---
EXAMINATION: CT abdomen pelvis wo con DATE: 09/12/2023 18:26 INDICATION: abdominal pain TECHNIQUE: Computed tomography (CT) of the abdomen and pelvis was performed without intravenous contr ast. Automated exposure control and iterative reconstruction technique were employed. The dose-length product was 846.47 mGy-cm. COMPARISON: 07/14/2021. FINDINGS: Lower thorax: Unremarkable Liver: Normal. Biliary/Gallbladder: Gallbladder is normal. Common bile duct measures 13 mm the stefano hepatis with mi ld intrahepatic duct dilation, not seen in the prior study, no obstructing mass or stone detected. Pancreas: No mass or duct dilation. Spleen: Normal. Adrenals:No mass. Kidneys: Mild bilateral stranding, worse in the left. Multiple nonobstructing stones bilaterally.. GI tract: No small or large bowel dilation. Normal appendix. Diverticulosis without diverticulitis. Mesentery/Peritoneum: No ascites, mass, or free air. Retroperitoneum: No mass. Atherosclerotic abdominal aortic and/or arterial calcifications. Pelvis: Distended urinary bladder. Prostatomegaly. Small calcifications in the left and mid dependent urinary bladder, which may lie adjacent to or just within the distal left UVJ. Soft Tissues: Soft tissues and body wall unremarkable. Bones: No acute osseous finding. IMPRESSION: Intra and extrahepatic bile duct dilation, normal-appearing gallbladder. No obstructing stone or mass detected. Correlate with biliary labs. Consider MRCP. 4 mm calcification in the left dependent urinary bladder may be just within the distal aspect of the UVJ or adjacent to it, therefore representing an obstructing stone or recently passed stone. Reviewed, dictated and finalized at location K. ENSATION COORDINATOR IMPRESSION: Intra and extrahepatic bile duct dilation, normal-appearing gallbladder. No obs tructing stone or mass detected. Correlate with biliary labs. Consider MRCP. 4 mm calcification in the left dependent urinary bladder may be just within the distal aspect of the UVJ or adjacent to it, therefore representing an obstruct ing stone or recently passed stone.
--- NOTE | ~2023-09-12 | US_ITS ---
EXAMINATION: US abdomen limited DATE: 09/12/2023 21:45 INDICATION: biliary dilation on ct, n/v, abd pain TECHNIQUE: Multiple grayscale and Doppler ultrasound images of limited portions of the abdomen were o btained. COMPARISON: None available. FINDINGS: The visualized portions of the pancreas are normal. Intrahepatic biliary dilation with echo genic periportal cuffing. Normal hepatopetal flow in the main portal vein. The gallbladder is normal with no abnormal wall thickening, pericholecystic fluid or stones. The common bile duct measures 9 mm . There was no sonographic Auguste sign. IMPRESSION: Mild intrahepatic and extra hepatic bile duct dilation. Periportal echogenicities which can be seen with cholecystitis, schistosomiasis, echogenic cholangiti s and inflammatory bowel disease. Consider MRCP and/or biliary scanning for further evaluation. Reviewed, dictated and finalized at location K. NG DEPARTMENT HEAD IMPRESSION: Mild intrahepatic and extra hepatic bile duct dilation. Periportal echogenicities which can be seen with cholecystitis, schistosomiasis , echogenic cholangitis and inflammatory bowel disease. Consider MRCP and/or biliary scanning for further evaluation.
[2023-09-12 17:14] VITALS: BP 106/48; PULSE 83; RESP 17; TEMP 36.2; O2SAT 99
--- NOTE | 2023-09-12 18:05 | ED.GENADULT ---
HPI - General Adult General Chief complaint: Recheck/Abnormal Lab/Rx <Ashley Dykes February, ELECTRICAL ENGINEERING TEACHER - Last Filed: 09/12/23 18:09> Stated complaint: sent by PCP, acute kidney failure <Ashley Dykes February, ELECTRICAL ENGINEERING TEACHER - Last Filed: 09/12/23 18:09> Time Seen by Provider: 09/12/23 20:27 <Ashley Dykes February, ELECTRICAL ENGINEERING TEACHER - Last Filed: 09/12/23 18:09> Source: patient <Violet Anthony PA-C - Last Filed: 09/12/23 23:55> Mode of arrival: ambulatory <JULIA Bennett Last Filed: 09/12/23 23:55> Limitations: no limitations <Violet Anthony PA-C - Last Filed: 09/12/23 23:55> History of Present Illness HPI narrative: Librado Gao is a 73 y/o male who presents with reports that for 2 1/2 weeks he has been ill at home with nausea/vomiting off and on/ he also adds that he has had some abdominal pain when he tries to eat the pat 2 weeks/ chills/ fevers/ pt also reports some lower back pain/ productive cough off and on. His PCP checked labs today because he hasn't been feeling well and his labs showed SANDIE and he sent him here for IV hydration/admission. <Ashley Dykes February, - Last Filed: 09/12/23 18:09> Librado Gao is a 73 y/o male who presents with reports that for 2 1/2 weeks he has been ill at home with nausea/vomiting off and on/ he also adds that he has had some abdominal pain when he tries to eat the pat 2 weeks/ chills/ fevers/ pt also reports some lower back pain/ productive cough off and on/decreased appetite/fatigue/orange urine/urinary frequent/urgency. His PCP checked labs today because he hasn't been feeling well and his labs showed SANDIE and he sent him here for IV hydration/admission. <Violet Anthony PA-C - Last Filed: 09/12/23 23:55> Related Data Home medications: Home Medications Medication Instructions Recorded Confirmed buspirone 15 mg tablet 15 mg PO BID 01/08/20 09/12/23 fluticasone propionate 50 2 spray intranasal DAILY 01/08/20 09/12/23 mcg/actuation nasal spray,suspension (Flonase Allergy Relief) latanoprost 0.005 % eye drops 1 drop ophthalmic (eye) HS 01/08/20 09/12/23 Multivitamin 50 Plus 1 tab-cap PO QAM 09/15/20 09/12/23 aspirin 81 mg tablet,delayed 81 mg PO QAM 09/15/20 09/12/23 release magnesium 200 mg tablet 400 mg PO DAILY 09/15/20 09/12/23 rosuvastatin 40 mg tablet 40 mg PO HS 09/15/20 09/12/23 Vascepa 2,000 mg PO BID 11/16/20 09/12/23 ascorbic acid (vitamin C) 1,000 mg 1 g PO DAILY 02/09/21 09/12/23 tablet cetirizine 10 mg tablet (Zyrtec) 10 mg PO DAILY 02/09/21 09/12/23 cholecalciferol (vitamin D3) 50 50 mcg PO DAILY 02/09/21 09/12/23 mcg (2,000 unit) capsule glucosamine HCl 500 mg tablet 1,000 mg PO DAILY 02/09/21 09/12/23 pyridoxine (vitamin B6) 100 mg 100 mg PO DAILY 02/09/21 09/12/23 tablet metoprolol succinate 50 mg 50 mg PO QAM 04/26/21 09/12/23 tablet,extended release 24 hr potassium citrate 10 mEq (1,080 2,160 mg PO BID 08/23/22 09/12/23 mg) tablet,extended release fluoxetine 20 mg capsule 20 mg PO DAILY 02/27/23 09/12/23 isosorbide mononitrate 30 mg 30 mg PO DAILY 02/27/23 09/12/23 tablet,extended release 24 hr <Ashley Gonzales, ELECTRICAL ENGINEERING TEACHER - Last Filed: 09/12/23 18:09> Allergies/adverse reactions: Allergies Allergy/AdvReac Type Severity Reaction Status Date / Time No Known Allergies Allergy Verified 09/12/23 17:18 <Ashley Gonzales APRN - Last Filed: 09/12/23 18:09> Review of Systems Review of Systems: CONSTITUTIONAL: See HPI. ENT: Denies rhinorrhea, congestion, sore throat. CARDIOVASCULAR: Denies chest pain, palpitations, or edema. RESPIRATORY: Denies cough or dyspnea. GASTROINTESTINAL: See HPI. GENITOURINARY: See HPI. NEUROLOGIC: See HPI. <Violet Anthony PA-C - Last Filed: 09/12/23 23:55> All systems reviewed & are unremarkable except as noted in HPI and below <Violet Anthony PA-C - Last Filed: 09/12/23 23:55> [facility] Past Medical History Medical History: Medical History (Reviewe
[2023-09-12 19:57] LABS: Influenza A QL RT-PCR Negative (Negative); Influenza B QL RT-PCR Negative (Negative); RSV RNA, RT-PCR Negative (Negative); SARS-CoV-2 RNA PCR Negative (Negative)
[2023-09-12 20:32] VITALS: BP 132/58; PULSE 78; RESP 15; O2SAT 100
[2023-09-12 20:38] VITALS: O2SAT 99
[2023-09-12] MEDS: SODIUM CHLORIDE 0.9% IV 1,000 ML 999 ML IV CONT ×2 (20:58→22:10)
[2023-09-12 22:00] LABS: INR 1.2; Prothrombin Time 16.4 Seconds (11.1-14.7)
[2023-09-12 22:01] LABS: Partial Thromboplastin Time 42.9 SECONDS (22.3-36.8)
--- NOTE | 2023-09-12 23:03 | PC.NURSE ---
pt care and report given to ELAINA Johnston. all questions answered.
[2023-09-12 23:37] VITALS: BP 138/64; PULSE 88; RESP 15; O2SAT 98
[2023-09-12 23:50] VITALS: BP 158/62; PULSE 99; RESP 18; TEMP 36.7; O2SAT 98; BMI 27.1
--- NOTE | 2023-09-12 23:59 | ADMGEN ---
This patient, Librado Gao, was admitted to Medical Room 250-01. Patient/family oriented to hospital policies and general routines including ID bracelet, bed and alarms, visiting hours, pain management, procedures, bathroom and other care routines, personal items, smoking policy, room service/diet, and visiting hours. Information on how to activate the Rapid Response Team has been discussed. Patient/Family are encouraged to report perceived risks to care and to ask questions if they do not understand what they are told or what they should do.
[2023-09-13] VITALS (12 sets, daily range): BP systolic 101–128; BP diastolic 50–75; PULSE 65–89; RESP 14–28; TEMP 36.3–36.6; O2SAT 98–100; BMI 28.1
[2023-09-13] MEDS: SODIUM CHLORIDE 0.9% IV 1,000 ML 100 ML IV CONT ×2 (00:38→13:06)
[2023-09-13 06:35] LABS: Alanine Aminotransferase 261 U/L (6-50); Albumin Level 3.4 g/dL (3.5-5.1); Alkaline Phosphatase 654 U/L (38-126); Anion Gap 15 mmol/L (8-16); Aspartate Amino Transferase 164 U/L (17-59); Bilirubin,Total 2.3 mg/dL (0.2-1.3); Blood Urea Nitrogen 41 mg/dL (9-20); Calcium 8.7 mg/dL (8.4-10.2); Carbon Dioxide 11 mmol/L (22-30); Chloride 114 mmol/L (98-107); Estimated CRCL calculation 16 ml/min; Estimated Glomerular Filt Rate 16; Glucose 97 mg/dL (65-110); Potassium 4.1 mmol/L (3.4-5.0); Sodium 140 mmol/L (137-145)
[2023-09-13 07:15] LABS: Lipase 557 U/L (23-300)
--- NOTE | 2023-09-13 07:19 | WPDGICN ---
Assessment and Plan Assessment and plan (1) Transaminitis: Code(s): R74.01 - Elevation of levels of liver transaminase levels Status: Acute Assessment and Plan: AST and ALT are 188 and 298 respectively. Alkaline phosphatase 741. (2) Intrahepatic bile duct dilation: Code(s): K83.8 - Other specified diseases of biliary tract Status: Acute Assessment and Plan: Ultrasound shows dilated intra and extrahepatic bile ducts but does not show filling defects such as stones. Will obtain MRCP to help clarify. It appears he will likely need ERCP. I discussed the procedure with him including the possible risks such as bleeding or perforation and a 3 % chance of pancreatitis which could be severe, could result in prolonged hospitalization or even surgery. (3) Hyperbilirubinemia: Code(s): E80.6 - Other disorders of bilirubin metabolism Status: Acute Assessment and Plan: Bilirubin is 2.7. Repeat just returned at 2.3. (4) Stage 3b chronic kidney disease: Code(s): N18.32 - Chronic kidney disease, stage 3b Status: Acute Assessment and Plan: creatinine in June was 1.57. Yesterday 4.3. (5) Pancreatitis: Code(s): K85.90 - Acute pancreatitis without necrosis or infection, unspecified Status: Acute Assessment and Plan: lipase is elevated. This is suggestive of distal common bile duct stone or sludge. MRCP to be done this morning but will likely need ERCP. Small stones and sludge are often missed on MRCP, particularly I have noticed that more recently. GI Consult Note Consult date/time: 09/13/23 07:19 HPI: Librado Gao is a 73 year old male Admitted to the emergency room because a 2+ week history of persistent nausea and vomiting. He has been having abdominal discomfort not a severe pain but discomfort in the mid and upper abdomen primarily after meals. He has also had chills and fever and feeling weak. He was actually sent to the emergency room by his primary care physician who had found on blood work that he had acute kidney injury. His creatinine was over 4. Review of Systems Review of Systems: All systems reviewed & are unremarkable except as noted in HPI and below PMFSH Past Medical History Medical History Anxiety CAD (coronary artery disease) COPD (chronic obstructive pulmonary disease) Depression Depression with anxiety Dupuytren's contracture of right hand Gastro-esophageal reflux disease without esophagitis Hx of myocardial infarction Hypertension with heart disease Hypertensive heart and CKD Melanoma Mild chronic obstructive pulmonary disease Mixed hyperlipidemia MARTHA (obstructive sleep apnea) Overweight (BMI 25.0-29.9) Surgical History Surgical History History of appendectomy History of lithotripsy Status post cataract extraction Status post lumbar spinal fusion Family History Family History Mother Hypertension HLD (hyperlipidemia) Lung cancer Father Cerebrovascular accident Social History Social History Smoking packs per day: 1 Smoking cigarettes per day: 20.0 Years smoked: 30 Smoking pack-years: 30.00 Smoking status: Current every day smoker Tobacco type: cigars Second hand tobacco smoke exposure: Yes Smoking end date: 12/19/94 Additional smoking assessment comments: quit in 1994 Alcohol intake: current Drinks per week: 1 Alcohol use details: 1 every couple of weeks Substance use: never Substance use type: does not use Lack of Transportation: No Lack of Food: Never True Current Housing: I Have Housing Concerned About Future Housing: No Difficulty Paying Gas/Electric Bills: No Difficulty Paying for Meds: No Currently Unemployed: No
--- NOTE | 2023-09-13 07:36 | PM.IMHP ---
H&P: HPI History of Present Illness Date/Time: 09/13/23 07:36 Chief Complaint: Nausea, vomiting, abdominal pain Narrative: This is a 73 year old male with a significant past medical history of CAD, COPD, depression, GERD, SD, HTN, melanoma, HLD, MARTHA who presents with a 2-week history of fever, chills, nausea, vomiting, and abdominal pain after eating. He went to his PCP and had his labs checked which revealed an SANDIE and he was sent to the hospital for IV hydration and further work up. Work up in the ED included a Chest x-ray which was negative. CT of the abdomen/pelvis which revealed intra and extrahepatic bile duct dilation, normal-appearing gallbladder, no obstructing stone or mass detected, 4mm calcification in the left dependent urinary bladder may be just within the distal aspect of the UVJ or adjacent to it, therefore representing and obstructing stone or recently passed stone. Abdominal x-ray which shown bilateral nephrolithiasis. Abdominal US which revealed mild intrahepatic and extra hepatic bile duct dilation. Labs revealed WBC 10.9, Hgb 9.5, Hct 28.9, PT 16.4, INR1.2, PTT 42.9, Na+ 134, K+ 4.2, Bicarb 15, BUN 46, Creatinine 4.30, Total Bili 2.7, AST 188, ALT 298, Alk phos 741. UA was also performed and revealed 3+ protein, 1+ blood, 1+ bili. Respiratory panel was negative. Patient was given 2L NS while in ED. Gastroenterology and Nephrology were consulted. On examination today patient Labs this morning revealed WBC 9.7, Hgb 8.8, Hct 26.7, Na+ 140, K+ 4.1, Chloride 114, Bicarb 11, BUN 41, Creatinine 3.80, eGFR 16, Total bili 2.3, AST 164, ALT 261, Alk phos 654, Lipase 557. GI planning for MRCP today. Patient may need ERCP as well. Review of Systems Review of Systems: All systems reviewed & are unremarkable except as noted in HPI and below PMFSH Past Medical History Medical History Anxiety CAD (coronary artery disease) COPD (chronic obstructive pulmonary disease) Depression Depression with anxiety Dupuytren's contracture of right hand Gastro-esophageal reflux disease without esophagitis Hx of myocardial infarction Hypertension with heart disease Hypertensive heart and CKD Melanoma Mild chronic obstructive pulmonary disease Mixed hyperlipidemia MARTHA (obstructive sleep apnea) Overweight (BMI 25.0-29.9) Surgical History Surgical History History of appendectomy History of lithotripsy Status post cataract extraction Status post lumbar spinal fusion Family History Family History Mother Hypertension HLD (hyperlipidemia) Lung cancer Father Cerebrovascular accident Social History Social History Smoking packs per day: 1 Smoking cigarettes per day: 20.0 Years smoked: 30 Smoking pack-years: 30.00 Smoking status: Current every day smoker Tobacco type: cigars Second hand tobacco smoke exposure: Yes Smoking end date: 12/19/94 Additional smoking assessment comments: quit in 1994 Alcohol intake: current Drinks per week: 1 Alcohol use details: 1 every couple of weeks Substance use: never Substance use type: does not use Lack of Transportation: No Lack of Food: Never True Current Housing: I Have Housing Concerned About Future Housing: No Difficulty Paying Gas/Electric Bills: No Difficulty Paying for Meds: No Currently Unemployed: No Education: High School Diploma/GED Difficulty w/ Childcare or Family Care: No Living arrangements: with family Additional living arrangements comments: Occupation/Education: retired Gender identity (if verbalized by the patient): Male Sexual Orientation (if Verbalized by the Patient): Straight or Heterosexual Spiritual care concerns: No Meds Home Medications and Allergies Home Medications Medication Instr
[2023-09-13 07:38] LABS: Basophils Percent Auto 0.4 % (0.2-1.2); Eosinophils Absolute Auto 0.1 K/mm3 (0-0.3); Eosinophils Percent Auto 0.5 % (0-4.4); Hematocrit 26.7 % (42.0-52.0); Hemoglobin 8.8 g/dL (14.0-18.0); Immature Granulocyte Absolute 0.06 K/mm3 (0.00-0.031); Immature Granulocyte Percent A 0.6 % (0-0.5); Lymphocytes Absolute Auto 1.21 K/mm3 (0.9-3.2); Lymphocytes Percent Auto 12.4 % (18.3-44.2); Mean Corpuscular Hemoglobin 30.8 pg (26-34); Mean Corpuscular Volume 93.4 fl (80-100); Mean Platelet Volume 9.4 fl (7.4-10.4); Monocytes Absolute Auto 1.4 K/mm3 (0.1-0.6); Monocytes Percent Auto 14.5 % (2.6-8.5); Neutrophils Percent Auto 71.6 % (45.5-73.1); Platelet Count Result 308 k/mm3 (150-375); Red Blood Count 2.86 M/mm3 (4.6-6.20); Red Cell Distribution Width 15.4 % (11.5-14.5); White Blood Count 9.7 K/mm3 (4.5-10.0)
--- NOTE | 2023-09-13 08:54 | WPDURCON ---
Assessment and Plan Assessment and plan (1) Left sided abdominal pain: Code(s): R10.9 - Unspecified abdominal pain Status: Acute Assessment and Plan: Likely related to recently passed stone. Much improved and he is tolerating it well. (2) Ureteral stone: Code(s): N20.1 - Calculus of ureter Status: Acute Assessment and Plan: Repeat PRONE CT 09/13/23 abdomen/pelvis confirms stones in the bladder, none are obstructive and there are other stones in the bilateral kidneys that are non obstructive. No surgical intervention needed as there is also no hydronephrosis. Continue to monitor creatinine to baseline. I will order a urine culture as he continues to have dysuria, hematuria, urgency and frequency despite a normal UA to rule out a UTI. He doesn't have to be held here for results as his symptoms are likley a result of his recently passes stone and not infectious. No further urologic evaluation needed at this time. Follow up with Dr. Taylor as planned. Urology Consult Note HPI Date Seen: 09/13/23 Time Seen: 08:54 Requesting Physician: Irene Miller DO Primary Care Provider: Hardy Alvarez MD Consult Narrative Reason for consult: Left Ureteral Stone/Bladder Stone/SANDIE Narrative: Librado Gao is a 73 year old male who presented to the ER yesterday with c/o worsening abdominal pain and lower back pain accompanied by nausea and vomiting that has been intermittent for 2.5 weeks. He also c/o chills,dysuria, gross hematuria, frequency and urgency over the past 2.5 weeks. He continues to have urinary symptoms despite a normal UA. No culture was sent. He has a WBC of 9.7 and creatinine of 3.80 which is improved from 4.30 yesterday. He is afebrile. CT scan yesterday reveals a 4mm left UVJ stone that may possibly be obstructive vs. just passed and in the bladder, the report is unclear as to it's exact position. There is no reported hydronephrosis. A LEELEE was done as well. He is a patient of Dr. Taylor who is treated for prostate cancer and recurrent kidney stones. He has had multiple ureteroscopies. I ordered a prone CT abdomen/pelvis today to locate the stones' exact position which did confirm that it's in the bladder and not obstructive. There are bilateral non obstructive stones as well. He states his pain is much better and his nausea and vomiting have subsided. Review of Systems Cardiovascular: Cardiovascular: Denies chest pain Respiratory: Respiratory: Reports no additional respiratory complaints Gastrointestinal: Gastrointestinal: Reports abdominal pain, Denies nausea and Denies vomiting Genitourinary: Genitourinary: Reports hematuria, Denies genital pain, Reports dysuria, Denies flank pain, Denies nocturia, Reports urinary frequency, Denies urinary hesitancy, Denies urinary incontinence and Reports urinary urgency [facility] Past Medical History Medical History Anxiety CAD (coronary artery disease) COPD (chronic obstructive pulmonary disease) Depression Depression with anxiety Dupuytren's contracture of right hand Gastro-esophageal reflux disease without esophagitis Hx of myocardial infarction Hypertension with heart disease Hypertensive heart and CKD Melanoma Mild chronic obstructive pulmonary disease Mixed hyperlipidemia MARTHA (obstructive sleep apnea) Overweight (BMI 25.0-29.9) Surgical History Surgical History History of appendectomy History of lithotripsy Status post cataract extraction Status post lumbar spinal fusion Family History Family History Mother Hypertension HLD (hyperlipidemia) Lung cancer Father Cerebrovascular accident Social History Social History Smoking packs per day: 1 Smoking cigarettes per day: 20.0 Years smoked:
[2023-09-13] MEDS: FLUTICASONE PROPIONATE 0.05% NA SPR 16 GM BTL (*BKC) 2 SPRAY NASAL (11:24)
[2023-09-13] MEDS: METOPROLOL SUCCINATE EXT REL 50 MG TABCR PO (11:25)
[2023-09-13] MEDS: ISOSORBIDE MONONITRATE 30 MG TAB.ER.24H PO (11:26)
[2023-09-13] MEDS: busPIRone HCL 5 MG TABLET 15 MG PO ×2 (11:26→16:40)
--- NOTE | 2023-09-13 13:30 | PC.NURSE ---
To GI Lab via wheelchair. Voiding without difficulty.
[2023-09-13] MEDS: LACTATED RINGERS 1,000 ML 150 ML IV CONT (13:55)
--- NOTE | 2023-09-13 14:26 | WPDANESEPPF ---
Anes - Initial Pre Proc Eval Procedure: Operation Date: 09/13/23 16:00 Proposed Procedures p Endoscopic Retro Cholangiopancreatogram - Ben Dunlap MD Date/Time: 09/13/23 14:26 Surgeon: Irene Miller DO Pre Op Diagnosis: SANDIE,N/V,Hyperbilirubinemia,Transaminitis,Dilated B Patient Data Age: 73 Gender: M Height: 1.78 m Weight: 89 kg Last Vital Signs Temp 97.3 F L 09/13/23 13:40 Pulse 67 09/13/23 13:40 Resp 18 09/13/23 13:40 BP 101/50 L 09/13/23 13:40 Pulse Ox 98 09/13/23 13:40 O2 Del Method Room Air 09/13/23 13:40 Allergies Allergy/AdvReac Type Severity Reaction Status Date / Time No Known Allergies Allergy Verified 09/13/23 00:14 Home Medications Medication Instructions Recorded Confirmed Type buspirone 15 mg tablet 15 mg PO BID 01/08/20 09/13/23 History fluticasone propionate 50 2 spray intranasal DAILY 01/08/20 09/13/23 History mcg/actuation nasal spray,suspension (Flonase Allergy Relief) latanoprost 0.005 % eye drops 1 drop ophthalmic (eye) HS 01/08/20 09/13/23 History Multivitamin 50 Plus 1 tab-cap PO QAM 09/15/20 09/13/23 History aspirin 81 mg tablet,delayed 81 mg PO QAM 09/15/20 09/13/23 History release magnesium 200 mg tablet 400 mg PO DAILY 09/15/20 09/13/23 History rosuvastatin 40 mg tablet 40 mg PO HS 09/15/20 09/13/23 History Vascepa 2,000 mg PO BID 11/16/20 09/13/23 History ascorbic acid (vitamin C) 1,000 mg 1 g PO DAILY 02/09/21 09/13/23 History tablet cetirizine 10 mg tablet (Zyrtec) 10 mg PO DAILY 02/09/21 09/13/23 History cholecalciferol (vitamin D3) 50 50 mcg PO DAILY 02/09/21 09/13/23 History mcg (2,000 unit) capsule glucosamine HCl 500 mg tablet 1,000 mg PO DAILY 02/09/21 09/13/23 History pyridoxine (vitamin B6) 100 mg 100 mg PO DAILY 02/09/21 09/13/23 History tablet metoprolol succinate 50 mg 50 mg PO QAM 04/26/21 09/13/23 History tablet,extended release 24 hr potassium citrate 10 mEq (1,080 2,160 mg PO BID 08/23/22 09/13/23 History mg) tablet,extended release fluoxetine 20 mg capsule 20 mg PO DAILY 02/27/23 09/13/23 History isosorbide mononitrate 30 mg 30 mg PO DAILY 02/27/23 09/13/23 History tablet,extended release 24 hr omeprazole 40 mg capsule,delayed 40 mg PO QAM #90 caps 03/30/23 09/13/23 Rx release lisinopril 40 mg tablet 40 mg PO DAILY #90 tabs 05/23/23 09/13/23 Rx icosapent ethyl 1 gram capsule 2 g PO BID 09/13/23 09/13/23 History Laboratory Tests 09/12/23 09/12/23 09/13/23 18:42 21:41 05:45 WBC 9.7 K/mm3 (4.5-10.0) RBC 2.86 L M/mm3 (4.6-6.20) Hgb 8.8 L g/dL (14.0-18.0) Hct 26.7 L % (42.0-52.0) MCV 93.4 fl (80-100) MCH 30.8 pg (26-34) MCHC 33.0 g/dl (32-36) RDW 15.4 H % (11.5-14.5) Plt Count 308 k/mm3 (150-375) MPV 9.4 fl (7.4-10.4) Immature Gran % (Auto) 0.6 H % (0-0.5) Neut % (Auto) 71.6 % (45.5-73.1) Lymph % (Auto) 12.4 L % (18.3-44.2) Person % (Auto) 14.5 H % (2.6-8.5) Eos % (Auto) 0.5 % (0-4.4) Baso % (Auto) 0.4 % (0.2-1.2) Lymph # (Auto) 1.21 K/mm3 (0.9-3.2) Person # (Auto) 1.4 H K/mm3 (0.1-0.6) Eos # (Auto) 0.1 K/mm3 (0-0.3) Baso # (Auto) 0.0 K/mm3 (0.0-0.1) Abs Immat Gran (auto) 0.06 H K/mm3 (0.00-0.031) Absolute Neuts (auto) 7.0 H K/mm3 (1.3-6.7) Absolute Nucleated RBC 0.0 K/mm3 (0.0-0.012) Nucleated RBC % 0.0 % (0.0-0.2) PT 16.4 H Seconds (11.1-14.7) INR 1.2 APTT 42.9 H SECONDS (22.3-36.8) Sodium Potassium Chloride Carbon Dioxide Anion Gap BUN Creatinine Estim Creat Clear Calc Estimated GFR Glucose Calcium Total Bilirubin
[2023-09-13] MEDS: INDOMETHACIN 50 MG SUPP.RECT RECTAL (14:54)
[2023-09-13] MEDS: GLUCAGON FOR INJ 1 MG VIAL 0.5 MG IV PUSH (15:01)
--- NOTE | 2023-09-13 16:15 | PC.NURSE ---
Returned from GI Lab via stretcher. Family at bedside.
[2023-09-13] MEDS: LATANOPROST 0.005% OP SOLN 2.5 ML BTL 1 DROP EACH EYE (20:07)
[2023-09-13] MEDS: PANTOPRAZOLE 40 MG TABLET PO (20:07)
[2023-09-14] MEDS: SODIUM CHLORIDE 0.9% IV 1,000 ML 100 ML IV CONT ×3 (02:23→21:48)
[2023-09-14 05:55] LABS: Basophils Percent Auto 0.1 % (0.2-1.2); Hematocrit 26.2 % (42.0-52.0); Hemoglobin 8.5 g/dL (14.0-18.0); Immature Granulocyte Absolute 0.08 K/mm3 (0.00-0.031); Lymphocytes Absolute Auto 1.19 K/mm3 (0.9-3.2); Lymphocytes Percent Auto 14.2 % (18.3-44.2); Mean Corpuscular HGB Conc 32.4 g/dl (32-36); Mean Corpuscular Hemoglobin 30.4 pg (26-34); Mean Corpuscular Volume 93.6 fl (80-100); Mean Platelet Volume 9.1 fl (7.4-10.4); Monocytes Absolute Auto 0.7 K/mm3 (0.1-0.6); Monocytes Percent Auto 8.1 % (2.6-8.5); Neutrophils Absolute Auto 6.4 K/mm3 (1.3-6.7); Neutrophils Percent Auto 76.6 % (45.5-73.1); Platelet Count Result 300 k/mm3 (150-375); Red Cell Distribution Width 15.6 % (11.5-14.5); White Blood Count 8.4 K/mm3 (4.5-10.0)
[2023-09-14 06:11] LABS: Alanine Aminotransferase 217 U/L (6-50); Albumin Level 3.1 g/dL (3.5-5.1); Alkaline Phosphatase 539 U/L (38-126); Anion Gap 13 mmol/L (8-16); Aspartate Amino Transferase 111 U/L (17-59); Bilirubin,Total 1.6 mg/dL (0.2-1.3); Blood Urea Nitrogen 37 mg/dL (9-20); Calcium 8.9 mg/dL (8.4-10.2); Carbon Dioxide 12 mmol/L (22-30); Chloride 115 mmol/L (98-107); Estimated CRCL calculation 20 ml/min; Estimated Glomerular Filt Rate 21; Glucose 135 mg/dL (65-110); Sodium 140 mmol/L (137-145)
[2023-09-14 06:45] VITALS: BP 120/66; PULSE 69; RESP 16; TEMP 36.4; O2SAT 100
--- NOTE | 2023-09-14 07:51 | P.PNIM_ITS ---
Progress Note: A&P Assessment and Plan (1) Acute kidney injury: Code(s): N17.9 - Acute kidney failure, unspecified Status: Acute Assessment and Plan: 09/13/23: * Initial labs revealed Na+ 134, K+ 4.2, Bicarb 15, BUN 46, Creatinine 4.30, eGFR 14 * CT of the abdomen and pelvis revealed 4mm calcification in the left dependent urinary bladder possibly within the distal aspect of the UVJ or adjacent to it, therefore representing an obstructing stone or a recently passed stone. * Abdominal x-ray revealing bilateral nephrolithiasis * Patient given 2L NS in ER for hydration * Started on maintenance IVF * Will hold Lisinopril and potassium for now * Nephrology consulted 09/14/23: * Sodium 140, potassium 4.0, chloride 115, bicarb 12, BUN 37, creatinine 3.0, creatinine clearance 20, EGFR 21. * Continue to hold nephrotoxic medication * Nephrology is following * Repeat CT scan of the abdomen pelvis showed urinary bladder stones, no UVJ stone, nonobstructing. * Will continue to trend labs as his BUN and creatinine are not to baseline * Continue with 1 more day of maintenance IV fluid (2) Intrahepatic bile duct dilation: Code(s): K83.8 - Other specified diseases of biliary tract Status: Acute Assessment and Plan: 09/13/23: * CT of the abdomen/pelvis revealing intra and extrahepatic bile duct dilation, normal-appearing gallbladder. No obstructing stone or mass detected. 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 (3) Transaminitis: Code(s): R74.01 - Elevation of levels of liver transaminase levels Status: Acute Assessment and Plan: 09/13/23: * Initial labs revealing AST 188, ALT 298, Alk phos 741, now trending downward this morning. * Will hold rosuvastatin, ASA, icosapent ethyl, and Vascepa 09/14/23: * AST 111, ALT 217, alk-phos 539, continuing to trend downward * Continue to trend labs * Continue to hold medications (4) Hyperbilirubinemia: Code(s): E80.6 - Other disorders of bilirubin metabolism Status: Acute Assessment and Plan: 09/13/23: * Initial total bili 2.7, now trending down to 2.3 this morning 09/14/23: * Total bili 1.6 * Continue to trend (5) Hypertension with heart disease: Code(s): I11.9 - Hypertensive heart disease without heart failure Status: Acute Assessment and Plan: 09/13/23: * Blood pressure ranging 117/56- 158/62 * Continue Metoprolol and Imdur * Lisinopril on hold due to SANDIE 09/14/23: * Pressure 112/54 to 121/54 * No change to current treatment plan * Continue to hold lisinopril due to SANDIE (6) CAD (coronary artery disease): Code(s): I25.10 - Atherosclerotic heart disease of [place] coronary artery without angina pectoris Status: Acute Assessment and Plan: 09/13/23: * Statin and cholesterol lowering medications on hold due to transaminitis 09/14/23: * No change to current treatment plan we will continue to hold until
--- NOTE | 2023-09-14 07:51 | PM.IMPN ---
Progress Note: A&P Assessment and Plan (1) Acute kidney injury: Code(s): N17.9 - Acute kidney failure, unspecified Status: Acute Assessment and Plan: 09/13/23: Initial labs revealed Na+ 134, K+ 4.2, Bicarb 15, BUN 46, Creatinine 4.30, eGFR 14 CT of the abdomen and pelvis revealed 4mm calcification in the left dependent urinary bladder possibly within the distal aspect of the UVJ or adjacent to it, therefore representing an obstructing stone or a recently passed stone. Abdominal x-ray revealing bilateral nephrolithiasis Patient given 2L NS in ER for hydration Started on maintenance IVF Will hold Lisinopril and potassium for now Nephrology consulted 09/14/23: Sodium 140, potassium 4.0, chloride 115, bicarb 12, BUN 37, creatinine 3.0, creatinine clearance 20, EGFR 21. Continue to hold nephrotoxic medication Nephrology is following Repeat CT scan of the abdomen pelvis showed urinary bladder stones, no UVJ stone, nonobstructing. Will continue to trend labs as his BUN and creatinine are not to baseline Continue with 1 more day of maintenance IV fluid (2) Intrahepatic bile duct dilation: Code(s): K83.8 - Other specified diseases of biliary tract Status: Acute Assessment and Plan: 09/13/23: CT of the abdomen/pelvis revealing intra and extrahepatic bile duct dilation, normal-appearing gallbladder. No obstructing stone or mass detected. 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 (3) Transaminitis: Code(s): R74.01 - Elevation of levels of liver transaminase levels Status: Acute Assessment and Plan: 09/13/23: Initial labs revealing AST 188, ALT 298, Alk phos 741, now trending downward this morning. Will hold rosuvastatin, ASA, icosapent ethyl, and Vascepa 09/14/23: AST 111, ALT 217, alk-phos 539, continuing to trend downward Continue to trend labs Continue to hold medications (4) Hyperbilirubinemia: Code(s): E80.6 - Other disorders of bilirubin metabolism Status: Acute Assessment and Plan: 09/13/23: Initial total bili 2.7, now trending down to 2.3 this morning 09/14/23: Total bili 1.6 Continue to trend (5) Hypertension with heart disease: Code(s): I11.9 - Hypertensive heart disease without heart failure Status: Acute Assessment and Plan: 09/13/23: Blood pressure ranging 117/56- 158/62 Continue Metoprolol and Imdur Lisinopril on hold due to SANDIE 09/14/23: Pressure 112/54 to 121/54 No change to current treatment plan Continue to hold lisinopril due to SANDIE (6) CAD (coronary artery disease): Code(s): I25.10 - Atherosclerotic heart disease of [place] coronary artery without angina pectoris Status: Acute Assessment and Plan: 09/13/23: Statin and cholesterol lowering medications on hold due to transaminitis 09/14/23: No change to current treatment plan we will continue to hold until transaminitis is resolved (7) MARTHA (obstructive sleep apnea): Code(s): G47.33 - Obstructive sleep apnea (adult) (pediatric) Status: Acute Assessment and Plan: 09/13/23: of note 09/14/23: Patient has home C-pap (8) Depression: Code(s): F32.9 - Major depressive disorder, single episode, unspecified Status: Acute Assessment and Plan: 09/13/23: Continue Prozac 09/14/23: no change to current treatment pl
[2023-09-14] MEDS: ENOXAPARIN 30 MG/0.3 ML SYRINGE SUB-Q (08:23)
[2023-09-14] MEDS: FLUTICASONE PROPIONATE 0.05% NA SPR 16 GM BTL (*BKC) 2 SPRAY NASAL (08:23)
[2023-09-14 08:25] VITALS: PULSE 72
[2023-09-14] MEDS: FLUoxetine HCL 20 MG CAPSULE PO (08:25)
[2023-09-14] MEDS: busPIRone HCL 5 MG TABLET 15 MG PO ×2 (08:25→16:31)
[2023-09-14] MEDS: METOPROLOL SUCCINATE EXT REL 50 MG TABCR PO (08:25)
[2023-09-14] MEDS: LORATADINE 10 MG TABLET PO (08:26)
[2023-09-14] MEDS: ASCORBIC ACID 500 MG TABLET 1000 MG PO (08:26)
[2023-09-14] MEDS: MULTIVITAMINS /C LUTEIN (CENTRUM SILVER) TABLET *BKC 1 TAB PO (08:26)
[2023-09-14] MEDS: PANTOPRAZOLE 40 MG TABLET PO ×2 (08:26→21:06)
[2023-09-14] MEDS: PYRIDOXINE HCL 50 MG TABLET 100 MG PO (08:26)
[2023-09-14] MEDS: MAGNESIUM OXIDE 400 MG TABLET PO (08:27)
[2023-09-14] MEDS: CHOLECALCIFEROL 1,000 UNITS TABLET 2000 UNITS PO (08:27)
[2023-09-14] MEDS: ISOSORBIDE MONONITRATE 30 MG TAB.ER.24H PO (08:27)
[2023-09-14 08:32] VITALS: RESP 16; O2SAT 100
--- NOTE | 2023-09-14 11:02 | PCNFU ---
Nutrition Follow-Up Complete: Inadequate oral intake related to nausea, loss of appetite as evidenced by MST, family report Goal: Diet advancement Adequate PO intake at least 75% when diet is advanced Patient is meeting goal. No new goal. Pt current nutrition is Regular with Ensure compact BID. Last recorded weight is 89 kg, no new weight to report. Bowel Motility:+BM reported 09/13 Labs Reviewed:Glu 135, BUN 37, GFR 21, Cr 3.0,Alb 3.1,Hgb 8.5,Hct 26.2 Meds Noted:Vit D, Lovenox, Mag-ox Skin: WNL Additional Notes: Patient remains on a regular diet. Intake has been good 100% of meals. Patient is tolerating diet supplements of Ensure Compact BID(220 kcals and 9 gms protein). Agree with diet orders. Monitoring intakes, weights, labs, plan of care Follow up in 7 days for diet advancement
--- NOTE | 2023-09-14 11:06 | PC.NURSE ---
On 09/14/23, the student, [Clarence Gallegos], provided care and completed [facility] documentation on this patient. I have reviewed the student's documentation and agree with the findings.
--- NOTE | 2023-09-14 11:10 | P.PNAN_ITS ---
Anes - Prog Note Post-Op Date/Time: 09/14/23 11:10 Cardiovascular status: normal Respiratory status: normal Airway patency: baseline Mental status: baseline Post-Op hydration status: normal Vital Signs: Last Vital Signs Temp 36.4 C 09/14/23 06:45 Pulse 72 09/14/23 08:25 Resp 16 09/14/23 08:32 BP 120/66 09/14/23 06:45 Pulse Ox 100 09/14/23 08:32 O2 Del Method Room Air 09/14/23 08:32 O2 Flow Rate 4 09/13/23 15:34 Pain Score (VAS): 12/09 I/O: Intake & Output 09/13/23 09/14/23 09/14/23 23:59 07:59 15:59 Intake Total 780 1350 360 Balance 780 1350 360 Laboratory Tests 09/14/23 05:43 09/14/23 05:43 09/14/23 09/14/23 05:40 05:43 WBC 8.4 RBC 2.80 L Hgb 8.5 L Hct 26.2 L MCV 93.6 MCH 30.4 MCHC 32.4 RDW 15.6 H Plt Count 300 MPV 9.1 Immature Gran % (Auto) 1.0 H Neut % (Auto) 76.6 H Lymph % (Auto) 14.2 L [place] % (Auto) 8.1 Eos % (Auto) 0.0 Baso % (Auto) 0.1 L Lymph # (Auto) 1.19 [place] # (Auto) 0.7 H Eos # (Auto) 0.0 Baso # (Auto) 0.0 Abs Immat Gran (auto) 0.08 H Absolute Neuts (auto) 6.4 Absolute Nucleated RBC 0.0 Nucleated RBC % 0.0 Sodium 140 Potassium 4.0 Chloride 115 H Carbon Dioxide 12 L Anion Gap 13 BUN 37 H Creatinine 3.00 H Estim Creat Clear Calc 20 Estimated GFR 21 L Glucose 135 H Calcium 8.9 Total Bilirubin 1.6 H AST 111 H ALT 217 H Alkaline Phosphatase 539 H Total Protein 7.0 Albumin 3.1 L CA 19-9 Antigen Pending Post-procedural complaints: none Patient Feedback: Patient satisfied with anesthetic care.
--- NOTE | 2023-09-14 11:16 | WPDGIPROGNO ---
Progress Note: A&P Assessment and Plan (1) Transaminitis: Code(s): R74.01 - Elevation of levels of liver transaminase levels Status: Acute Assessment and Plan: AST and ALT are 188 and 298 respectively. Alkaline phosphatase 741. (2) Intrahepatic bile duct dilation: Code(s): K83.8 - Other specified diseases of biliary tract Status: Acute Assessment and Plan: Ultrasound shows dilated intra and extrahepatic bile ducts but does not show filling defects such as stones. Will obtain MRCP to help clarify. It appears he will likely need ERCP. I discussed the procedure with him including the possible risks such as bleeding or perforation and a 3 % chance of pancreatitis which could be severe, could result in prolonged hospitalization or even surgery. MRCP did reveal apparent mass in head of the pancreas. ERCP revealed a very dilated common bile duct and stenosis at the very distal common bile duct. A stent was able to be placed allowing drainage of bile. (3) Hyperbilirubinemia: Code(s): E80.6 - Other disorders of bilirubin metabolism Status: Acute Assessment and Plan: Bilirubin is 2.7. Repeat just returned at 2.3. (4) Stage 3b chronic kidney disease: Code(s): N18.32 - Chronic kidney disease, stage 3b Status: Acute Assessment and Plan: creatinine in June was 1.57. Yesterday 4.3. (5) Pancreatitis: Code(s): K85.90 - Acute pancreatitis without necrosis or infection, unspecified Status: Acute Assessment and Plan: lipase is elevated. This is suggestive of distal common bile duct stone or sludge. MRCP to be done this morning but will likely need ERCP. Small stones and sludge are often missed on MRCP, particularly I have noticed that more recently. It appears now that his pancreatitis is probably related to partial blockage of pancreatic duct due to mass in the head of the pancreas. Plan If he tolerates his diet he could be discharged. Will arrange for him to be seen as soon as possible in [place] for EUS and biopsy of the mass and further management depending on those results Subjective Date/time seen: 09/14/23 11:16 he is feeling good today. He is hungry would like to try eating. I discussed with him the results of the ERCP and MRCP. We were able to place a stent allowing drainage of bile but it appears that he may have a mass in the head of his pancreas. It would probably be days before we can get him transferred directly to [place]. Therefore we will probably discharge him and set up an appointment to be seen with the gastroenterology department at [place] for EUS and FNA. Exam Const: General: cooperative and healthy appearing Orientation/consciousness: patient oriented x3 HENMT: Head: normal to inspection Ears: hearing grossly normal bilaterally Mouth: Yes Normal oral and palatal mucosa present Eyes: General: appearance normal, both eyes and all related structures Neck: Neck: normal visual inspection Chest: Chest palpation & inspection: normal inspection of the chest Resp: Effort & Inspection: normal respiratory effort Auscultation: clear to auscultation bilaterally Cardio: Rate: regular rate Rhythm: regular rhythm GI: Inspection: normal to inspection GI Palp: Yes abdominal tenderness ( Upper and mid abdomen, mild), Yes Soft to palpation and Yes No hepatosplenomegaly present Auscultation: normal bowel sounds Skin: General skin exam: normal color, no ecchymosis and jaundice ( Generalized) Neuro: General: patient oriented x3 Speech: normal speech Objective Data Vital Signs Vital Signs: Vital Signs - 24 hr 09/13/23 11:25 09/13/23 13:40 09/13/23 15:24 Temperature 36.3 C L 36.6 C Pulse Rate 88 67 80 Respiratory Rate 18 24 H Blood Pressure 101/50 L 128/75 Pulse Oximetry 98 100 Oxygen Delivery Room Air Nasal Cannula Oxygen Flow Rate 10 09/13/23 15:34 09/13/23 15:44 09/13/23
[2023-09-14 13:49] VITALS: BP 121/54; PULSE 67; RESP 16; TEMP 36.5; O2SAT 100
[2023-09-14] MEDS: LATANOPROST 0.005% OP SOLN 2.5 ML BTL 1 DROP EACH EYE (21:47)
[2023-09-14 22:24] VITALS: BP 138/62; PULSE 70; RESP 16; TEMP 36.6; O2SAT 99
[2023-09-15] MEDS: MORPHINE SULFATE (*CRX) 4 MG/ML INJ IV PUSH (00:04)
[2023-09-15] MEDS: ONDANSETRON INJ 4 MG/2 ML VIAL IV PUSH (00:05)
[2023-09-15 06:22] LABS: Basophils Absolute Auto 0.1 K/mm3 (0.0-0.1); Basophils Percent Auto 0.6 % (0.2-1.2); Eosinophils Absolute Auto 0.2 K/mm3 (0-0.3); Eosinophils Percent Auto 1.5 % (0-4.4); Hematocrit 27.7 % (42.0-52.0); Immature Granulocyte Absolute 0.11 K/mm3 (0.00-0.031); Immature Granulocyte Percent A 1.1 % (0-0.5); Lymphocytes Absolute Auto 2.34 K/mm3 (0.9-3.2); Lymphocytes Percent Auto 22.9 % (18.3-44.2); Mean Corpuscular HGB Conc 32.5 g/dl (32-36); Mean Corpuscular Hemoglobin 31.1 pg (26-34); Mean Corpuscular Volume 95.8 fl (80-100); Mean Platelet Volume 9.3 fl (7.4-10.4); Monocytes Absolute Auto 1.1 K/mm3 (0.1-0.6); Monocytes Percent Auto 11.1 % (2.6-8.5); Neutrophils Absolute Auto 6.4 K/mm3 (1.3-6.7); Neutrophils Percent Auto 62.8 % (45.5-73.1); Platelet Count Result 317 k/mm3 (150-375); Red Blood Count 2.89 M/mm3 (4.6-6.20); Red Cell Distribution Width 15.9 % (11.5-14.5); White Blood Count 10.2 K/mm3 (4.5-10.0)
[2023-09-15 06:33] LABS: Alanine Aminotransferase 202 U/L (6-50); Albumin Level 3.1 g/dL (3.5-5.1); Alkaline Phosphatase 474 U/L (38-126); Anion Gap 9 mmol/L (8-16); Aspartate Amino Transferase 103 U/L (17-59); Bilirubin,Total 1.3 mg/dL (0.2-1.3); Blood Urea Nitrogen 34 mg/dL (9-20); Calcium 8.3 mg/dL (8.4-10.2); Carbon Dioxide 16 mmol/L (22-30); Chloride 116 mmol/L (98-107); Estimated CRCL calculation 24 ml/min; Estimated Glomerular Filt Rate 25; Glucose 157 mg/dL (65-110); Lipase 353 U/L (23-300); Potassium 3.8 mmol/L (3.4-5.0); Sodium 141 mmol/L (137-145)
[2023-09-15 06:49] VITALS: BP 145/65; PULSE 76; RESP 16; TEMP 36.4; O2SAT 100
--- NOTE | 2023-09-15 07:02 | P.PNIM_ITS ---
Progress Note: A&P Assessment and Plan (1) Acute kidney injury: Code(s): N17.9 - Acute kidney failure, unspecified Status: Acute Assessment and Plan: 09/13/23: * Initial labs revealed Na+ 134, K+ 4.2, Bicarb 15, BUN 46, Creatinine 4.30, eGFR 14 * CT of the abdomen and pelvis revealed 4mm calcification in the left dependent urinary bladder possibly within the distal aspect of the UVJ or adjacent to it, therefore representing an obstructing stone or a recently passed stone. * Abdominal x-ray revealing bilateral nephrolithiasis * Patient given 2L NS in ER for hydration * Started on maintenance IVF * Will hold Lisinopril and potassium for now * Nephrology consulted 09/14/23: * Sodium 140, potassium 4.0, chloride 115, bicarb 12, BUN 37, creatinine 3.0, creatinine clearance 20, EGFR 21. * Continue to hold nephrotoxic medication * Nephrology is following * Repeat CT scan of the abdomen pelvis showed urinary bladder stones, no UVJ stone, nonobstructing. * Will continue to trend labs as his BUN and creatinine are not to baseline * Continue with 1 more day of maintenance IV fluid 09/15/23: * Sodium 141, potassium 3.8, chloride 116, bicarb 16, BUN 34, creatinine 2.5, creatinine clearance 24, EGFR 25 * Continue to hold nephrotoxic medications * Will discontinue IV fluids at this time (2) Intrahepatic bile duct dilation: Code(s): K83.8 - Other specified diseases of biliary tract Status: Acute Assessment and Plan: 09/13/23: * CT of the abdomen/pelvis revealing intra and extrahepatic bile duct dilation, normal-appearing gallbladder. No obstructing stone or mass detected. 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 09/15/23: * Liver enzymes continuing to trend down, AST 103, ALT 202, alk-phos 474, lipase 353 today * GI following and patient is okay to be discharged from their standpoint at any time with the intent for him to follow up with [facility] for his pancreatic mass * Continue to trend labs * Hopefully tomorrow we can restart his home medications as long as his liver enzymes are near baseline (3) Transaminitis: Code(s): R74.01 - Elevation of levels of liver transaminase levels Status: Acute Assessment and Plan: 09/13/23: * Initial labs revealing AST 188, ALT 298, Alk phos 741, now trending downward this morning. * Will hold rosuvastatin, ASA, icosapent ethyl, and Vascepa 09/14/23: * AST 111, ALT 217, alk-phos 539, continuing to trend downward * Continue to trend labs * Continue to hold medications 09/15/23: * AST 103, ALT 202, alk-phos 474 * Continue to trend labs * Continue to hold medication (4) Hyperbilirubinemia: Code(s): E80.6 - Other disorders of bilirubin metabolism Status: Acute Assessment and Plan: 09/13/23: * Initial total bili 2.7, now trending down to 2.3 this morning 09/14/23: * Total bili 1.6 * Continue to trend 09/15/23: * Total bili 1.3 * Resolved (
--- NOTE | 2023-09-15 07:02 | PM.IMPN ---
Progress Note: A&P Assessment and Plan (1) Acute kidney injury: Code(s): N17.9 - Acute kidney failure, unspecified Status: Acute Assessment and Plan: 09/13/23: Initial labs revealed Na+ 134, K+ 4.2, Bicarb 15, BUN 46, Creatinine 4.30, eGFR 14 CT of the abdomen and pelvis revealed 4mm calcification in the left dependent urinary bladder possibly within the distal aspect of the UVJ or adjacent to it, therefore representing an obstructing stone or a recently passed stone. Abdominal x-ray revealing bilateral nephrolithiasis Patient given 2L NS in ER for hydration Started on maintenance IVF Will hold Lisinopril and potassium for now Nephrology consulted 09/14/23: Sodium 140, potassium 4.0, chloride 115, bicarb 12, BUN 37, creatinine 3.0, creatinine clearance 20, EGFR 21. Continue to hold nephrotoxic medication Nephrology is following Repeat CT scan of the abdomen pelvis showed urinary bladder stones, no UVJ stone, nonobstructing. Will continue to trend labs as his BUN and creatinine are not to baseline Continue with 1 more day of maintenance IV fluid 09/15/23: Sodium 141, potassium 3.8, chloride 116, bicarb 16, BUN 34, creatinine 2.5, creatinine clearance 24, EGFR 25 Continue to hold nephrotoxic medications Will discontinue IV fluids at this time (2) Intrahepatic bile duct dilation: Code(s): K83.8 - Other specified diseases of biliary tract Status: Acute Assessment and Plan: 09/13/23: CT of the abdomen/pelvis revealing intra and extrahepatic bile duct dilation, normal-appearing gallbladder. No obstructing stone or mass detected. Abdominal US shown mild intrahepatic and extrahepatic bile duct dilation Gastroenterology consulted Lipase 557 09/14/23: MRCP revealing 24 mm mass in the head of the pancreas, consistent with primary adeno carcinoma, intrahepatic and extrahepatic biliary duct dilation secondary to the pancreatic mass Patient also had an ERCP yesterday with successful placement of an internal biliary stent GI following Liver enzymes are trending downward Will check a lipase tomorrow Discussed with case management and nursing Will touch base with GI tomorrow on providers at [place] for follow up on pancreatic mass. 09/15/23: Liver enzymes continuing to trend down, AST 103, ALT 202, alk-phos 474, lipase 353 today GI following and patient is okay to be discharged from their standpoint at any time with the intent for him to follow up with [facility] for his pancreatic mass Continue to trend labs Hopefully tomorrow we can restart his home medications as long as his liver enzymes are near baseline (3) Transaminitis: Code(s): R74.01 - Elevation of levels of liver transaminase levels Status: Acute Assessment and Plan: 09/13/23: Initial labs revealing AST 188, ALT 298, Alk phos 741, now trending downward this morning. Will hold rosuvastatin, ASA, icosapent ethyl, and Vascepa 09/14/23: AST 111, ALT 217, alk-phos 539, continuing to trend downward Continue to trend labs Continue to hold medications 09/15/23: AST 103, ALT 202, alk-phos 474 Continue to trend labs Continue to hold medication (4) Hyperbilirubinemia: Code(s): E80.6 - Other disorders of bilirubin metabolism Status: Acute Assessment and Plan: 09/13/23: Initial total bili 2.7, now trending down to 2.3 this morning 09/14/23: Total bili 1.6 Continue to trend 09/15/23: Total bili 1.3 Resolved (5) Hypertension with heart disease: Code(s): I11.9 - Hypertensive heart disease without heart failure Status: Acute Assessment and Plan: 09/13/23: Blood pressure ranging 117/56- 158/62 Continue Metoprolol and Imdur Lisinopril on hold due to SANDIE 09/14/23: Pressure 112/54 to 121/54 No change to current treatment plan Continue to hold lisinopril due to SANDIE 09/15/23: Blood pressure 121/54 to 145/65 No change to current treatment plan
[2023-09-15] MEDS: FLUTICASONE PROPIONATE 0.05% NA SPR 16 GM BTL (*BKC) 2 SPRAY NASAL (09:02)
[2023-09-15] MEDS: MULTIVITAMINS /C LUTEIN (CENTRUM SILVER) TABLET *BKC 1 TAB PO (09:02)
[2023-09-15] MEDS: PYRIDOXINE HCL 50 MG TABLET 100 MG PO (09:03)
[2023-09-15] MEDS: ISOSORBIDE MONONITRATE 30 MG TAB.ER.24H PO (09:03)
[2023-09-15] MEDS: CHOLECALCIFEROL 1,000 UNITS TABLET 2000 UNITS PO (09:03)
[2023-09-15 09:04] VITALS: PULSE 71
[2023-09-15] MEDS: FLUoxetine HCL 20 MG CAPSULE PO (09:04)
[2023-09-15] MEDS: LORATADINE 10 MG TABLET PO (09:04)
[2023-09-15] MEDS: METOPROLOL SUCCINATE EXT REL 50 MG TABCR PO (09:04)
[2023-09-15] MEDS: PANTOPRAZOLE 40 MG TABLET PO ×2 (09:04→21:04)
[2023-09-15] MEDS: MAGNESIUM OXIDE 400 MG TABLET PO (09:04)
[2023-09-15] MEDS: busPIRone HCL 5 MG TABLET 15 MG PO ×2 (09:04→17:42)
[2023-09-15] MEDS: ASCORBIC ACID 500 MG TABLET 1000 MG PO (09:04)
[2023-09-15] MEDS: ENOXAPARIN 30 MG/0.3 ML SYRINGE SUB-Q (09:05)
[2023-09-15] MEDS: SODIUM CHLORIDE 0.9% IV 1,000 ML 100 ML IV CONT (09:15)
[2023-09-15 14:54] VITALS: BP 125/64; PULSE 69; RESP 18; TEMP 36.4; O2SAT 98
[2023-09-15 19:27] VITALS: BP 142/68; PULSE 67; RESP 18; TEMP 36.3; O2SAT 100
[2023-09-15] MEDS: LATANOPROST 0.005% OP SOLN 2.5 ML BTL 1 DROP EACH EYE (21:04)
[2023-09-16 05:53] LABS: Basophils Absolute Auto 0.1 K/mm3 (0.0-0.1); Basophils Percent Auto 1.1 % (0.2-1.2); Eosinophils Absolute Auto 0.3 K/mm3 (0-0.3); Eosinophils Percent Auto 3.7 % (0-4.4); Hematocrit 26.9 % (42.0-52.0); Hemoglobin 8.7 g/dL (14.0-18.0); Immature Granulocyte Absolute 0.24 K/mm3 (0.00-0.031); Immature Granulocyte Percent A 2.8 % (0-0.5); Lymphocytes Absolute Auto 2.33 K/mm3 (0.9-3.2); Lymphocytes Percent Auto 27.3 % (18.3-44.2); Mean Corpuscular HGB Conc 32.3 g/dl (32-36); Mean Corpuscular Hemoglobin 30.4 pg (26-34); Mean Corpuscular Volume 94.1 fl (80-100); Mean Platelet Volume 8.9 fl (7.4-10.4); Monocytes Absolute Auto 1.2 K/mm3 (0.1-0.6); Monocytes Percent Auto 13.9 % (2.6-8.5); Neutrophils Absolute Auto 4.4 K/mm3 (1.3-6.7); Neutrophils Percent Auto 51.2 % (45.5-73.1); Platelet Count Result 298 k/mm3 (150-375); Red Blood Count 2.86 M/mm3 (4.6-6.20); Red Cell Distribution Width 15.4 % (11.5-14.5); White Blood Count 8.6 K/mm3 (4.5-10.0)
[2023-09-16 06:00] VITALS: BP 132/68; PULSE 73; RESP 18; TEMP 36.7; O2SAT 98
[2023-09-16 06:16] LABS: Alanine Aminotransferase 174 U/L (6-50); Alkaline Phosphatase 391 U/L (38-126); Anion Gap 9 mmol/L (8-16); Aspartate Amino Transferase 79 U/L (17-59); Bilirubin,Total 1.2 mg/dL (0.2-1.3); Blood Urea Nitrogen 30 mg/dL (9-20); Calcium 8.4 mg/dL (8.4-10.2); Carbon Dioxide 18 mmol/L (22-30); Chloride 113 mmol/L (98-107); Estimated CRCL calculation 26 ml/min; Estimated Glomerular Filt Rate 28; Glucose 96 mg/dL (65-110); Potassium 3.7 mmol/L (3.4-5.0); Sodium 140 mmol/L (137-145)
--- NOTE | 2023-09-16 08:13 | PM.DS ---
DS: Admitting Diagnosis Discharge Date 09/16/23 Admitting Diagnosis SANDIE Transaminitis Hyperbilirubinemia Hypertension with heart disease CAD Anxiety Depression DS: Discharge Diagnosis Discharge Diagnosis (1) Acute kidney injury: Code(s): N17.9 - Acute kidney failure, unspecified Status: Acute (2) Intrahepatic bile duct dilation: Code(s): K83.8 - Other specified diseases of biliary tract Status: Acute (3) Transaminitis: Code(s): R74.01 - Elevation of levels of liver transaminase levels Status: Acute (4) Hyperbilirubinemia: Code(s): E80.6 - Other disorders of bilirubin metabolism Status: Acute (5) Hypertension with heart disease: Code(s): I11.9 - Hypertensive heart disease without heart failure Status: Acute (6) CAD (coronary artery disease): Code(s): I25.10 - Atherosclerotic heart disease of [place] coronary artery without angina pectoris Status: Acute (7) MARTHA (obstructive sleep apnea): Code(s): G47.33 - Obstructive sleep apnea (adult) (pediatric) Status: Acute (8) Depression: Code(s): F32.9 - Major depressive disorder, single episode, unspecified Status: Acute (9) Anxiety: Code(s): F41.9 - Anxiety disorder, unspecified Status: Acute DS: Summary Hospital Course Reason for hospitalization: SANDIE Transaminitis Hospital Course: This is a 73 year old male who presented to the hospital on 09/13/23 with a 2 week history of fever, chills, nausea, vomiting, and abdominal pain after eating. He went and seen his PCP and had labs checked which revealed an SANDIE secondary to dehydration. He was sent to the hospital at that time for further work up. Work up in hospital included CXR which was negative, CT of the abdomen and pelvis which shown intra and extra hepatic bile duct dilation, normal-appearing gallbladder, no obstructing stone or mass, 4mm calcification iin the left dependent urinary bladder representing a possible obstructing stone. Abdominal x-ray shown bilateral nephrolithiasis. Abdominal US revealed mild intrahepatic and extra hepatic bile duct dilatation. Labs revealed initial BUN 46, creatinine 4.3, Total bili 2.7, AST 118, ALT 298, Alk phos 741. Gastroenterology and Urology was consulted. Urology repeated the CT of abdomen and pelvis which did not reveal any obstructing stone, however there were two stones noted in the anterior bladder when in prone position. GI obtained an MRCP which revealed a 24 mm mass in the head of the pancreas, consistent with primary adenocarcinoma, intrahepatic and extrahepatic biliary duct dilation secondary to the pancreatic mass. They then did an ERCP with successful internal biliary stent placement. On examination today patient is alert and oriented x4, lying in the bed eating lunch. VSS, he is afebrile, he is on room air. He denies fevers, chills, nausea, vomiting, diarrhea, abdominal pain, abdominal distension, shortness of breath, or chest pain. He denies any new complaints today Labs today reveal WBC 8.6, Hgb 8.7, 26.9, Na+ 140, K+ 3.7, Chloride 113, Carbon dioxide 18, BUN 30, creatinine 2.30, eGFR 28, BG ranging 96-157, total bili 1.2, AST 7 9, ALT 174, Alk Phos 391. Now that his kidney and liver function is showing marked improvement, patient is stable for discharge. We will continue to hold his Lisinopril, Rosuvastatin, and Vascepa at this time. He will need to get a CMP this week and follow up with PCP before restarting those medications. Dr. Dunlap will also be in touch with him regarding referral over to [facility] for further workup of his pancreatic mass. Plan discussed with patient and he is agreeable to this plan of care. Status at Discharge Cognitive/behavioral status at discharge: Alert and oriented x4 Functional status at discharge: independent ambulation Overall status at discharge: patient is progressing back to baseline Time Spent with Patient Time attestation: Total time spent pro
[2023-09-16] MEDS: busPIRone HCL 5 MG TABLET 15 MG PO (09:37)
[2023-09-16] MEDS: ENOXAPARIN 30 MG/0.3 ML SYRINGE SUB-Q (09:38)
[2023-09-16] MEDS: ASCORBIC ACID 500 MG TABLET 1000 MG PO (09:38)
[2023-09-16] MEDS: FLUoxetine HCL 20 MG CAPSULE PO (09:38)
[2023-09-16 09:39] VITALS: PULSE 71
[2023-09-16] MEDS: CHOLECALCIFEROL 1,000 UNITS TABLET 2000 UNITS PO (09:39)
[2023-09-16] MEDS: ISOSORBIDE MONONITRATE 30 MG TAB.ER.24H PO (09:39)
[2023-09-16] MEDS: FLUTICASONE PROPIONATE 0.05% NA SPR 16 GM BTL (*BKC) 2 SPRAY NASAL (09:39)
[2023-09-16] MEDS: MAGNESIUM OXIDE 400 MG TABLET PO (09:39)
[2023-09-16] MEDS: METOPROLOL SUCCINATE EXT REL 50 MG TABCR PO (09:39)
[2023-09-16] MEDS: PANTOPRAZOLE 40 MG TABLET PO (09:40)
[2023-09-16] MEDS: LORATADINE 10 MG TABLET PO (09:40)
[2023-09-16] MEDS: PYRIDOXINE HCL 50 MG TABLET 100 MG PO (09:40)
[2023-09-16] MEDS: MULTIVITAMINS /C LUTEIN (CENTRUM SILVER) TABLET *BKC 1 TAB PO (09:40)
[2023-09-19 15:53] LABS: CA 19-9 675 U/mL (<34)
== END 2023-09-16 16:40 | disposition home or self-care (01) | DRG 435 ==
LOC: ANHED 22:08 → ANH2MED 23:12
PROVIDERS: Internal Medicine Gastroenterology; Nurse Practitioner Family; Admitting Provider Internal Medicine; Emergency Provider Physician Assistant; PCP Family Medicine; Visit Provider Nurse Practitioner Acute Care
PROC: 0F798DZ Dilation of Common Bile Duct with Intraluminal Device, Via Natural or Artificial Opening Endoscopic (ICD-10-PCS; CPT 43260; principal; 2023-09-13 16:00)
DX: C25.0 Malignant neoplasm of head of pancreas (principal); K83.1 Obstruction of bile duct; N17.9 Acute kidney failure, unspecified; I25.10 Atherosclerotic heart disease of native coronary artery without angina pectoris; I12.9 Hypertensive chronic kidney disease with stage 1 through stage 4 chronic kidney disease, or unspecified chronic kidney disease; N18.32 Chronic kidney disease, stage 3b; N20.0 Calculus of kidney; N21.0 Calculus in bladder; J44.9 Chronic obstructive pulmonary disease, unspecified; K57.10 Diverticulosis of small intestine without perforation or abscess without bleeding; E78.2 Mixed hyperlipidemia; K21.9 Gastro-esophageal reflux disease without esophagitis; R74.01 Elevation of levels of liver transaminase levels; G47.33 Obstructive sleep apnea (adult) (pediatric); F32.A Depression, unspecified; F41.9 Anxiety disorder, unspecified; F17.210 Nicotine dependence, cigarettes, uncomplicated; Z20.822 Contact with and (suspected) exposure to COVID-19; I25.2 Old myocardial infarction; Z85.820 Personal history of malignant melanoma of skin; Z79.82 Long term (current) use of aspirin; Z98.1 Arthrodesis status
CPT/HCPCS: 36415; 71046; 74018; 74176; 74183; 74329; 76376; 76705; 80053; 81001; 83690; 85025; 85610; 85730; 86301; 87086; 87637; 96360; 96361; 99285; A9270; A9577; C1876; G0378; J0330; J1100; J1610; J1650; J2270; J2405; J2704; J3010; J7030; J7120; Q9966

== ENCOUNTER 2023-11-09 18:24 | Emergency (ER) | payer BC, SELFPAY ==
[2023-11-09 18:43] VITALS: BP 103/51; PULSE 110; RESP 16; TEMP 37.7; O2SAT 98
--- NOTE | 2023-11-09 21:32 | PC.NURSE ---
2131-PATIENT HAS ELECTED TO LEAVE. PATIENT STATES HE DOES NOT WANT TO WAIT ANY LONGER.
== END 2023-11-09 22:08 | disposition left against medical advice (07) ==
PROVIDERS: PCP Family Medicine
DX: R50.9 Fever, unspecified (principal)
CPT/HCPCS: 99199

== ENCOUNTER 2024-03-02 17:20 | Emergency (ER) | payer BC, SELFPAY ==
--- NOTE | ~2024-03-02 | CT_ITS ---
EXAMINATION: CT abdomen pelvis w con DATE: 03/02/2024 19:21 INDICATION: ABDOMINAL PAIN, PANCREATIC CANCER, VOMITING TECHNIQUE: Computed tomography (CT) of the abdomen and pelvis was performed with 100 mL Omnipaque-350 intravenous contrast. Automated exposure control and iterative reconstruction technique were employe d. The dose-length product was 533.41 mGy-cm. COMPARISON: CT and MR MRCP 09/13/2023. FINDINGS: Lower thorax: Unremarkable Liver: Periportal edema. Pneumobilia. Biliary/Gallbladder: Gallbladder contains a bubble of gas, otherwise normal. Common bile duct stent. Biliary drain. Pneumobilia suggests drain/stent patency. Pancreas: No mass or duct dilation. Spleen: Normal. Adrenals:No mass. Kidneys: Moderate bilateral perinephric stranding. Mild bilateral cortical thinning and scarring. Samson ateral nonobstructing nephroliths. Mild bilateral ureterectasis with urothelial enhancement. GI tract: Small hiatal hernia. Mild distal esophageal and gastric wall edema. No small or large bowel dilation. Normal appendix. Diverticulosis without diverticulitis. Mesentery/Peritoneum: No ascites, mass, or free air. Retroperitoneum: No mass. Pelvis: 6 mm calcification in the dependent urinary bladder.. Soft Tissues: Soft tissues and body wall unremarkable. Bones: No acute osseous finding. IMPRESSION: Mild esophagitis/gastritis. Apparently patent biliary drain and common bile duct stent. Moderate bilateral perinephric stranding and ureteral urothelial enhancement may represent ascending infection in the appropriate clinical context. Correlate with urinalysis. 6 mm bladder calculus versus recently passed nephrolith. Reviewed, dictated and finalized at location [facility]. IMPRESSION: Mild esophagitis/gastritis. Apparently patent biliary drain and common bile duct stent. Moderate bilateral perinephric stranding and ureteral urothelial enhancement ma y represent ascending infection in the appropriate clinical context. Correlate with urinalysis. 6 mm bladder calculus versus recently passed nephrolith.
[2024-03-02 17:21] VITALS: BP 143/71; PULSE 65; RESP 18; TEMP 37.2; O2SAT 100
--- NOTE | 2024-03-02 18:08 | ED.ABDPAIN ---
HPI - Abdominal Pain General Chief Complaint: Abdominal Pain Stated Complaint: abd pain/ vomiting Time Seen by Provider: 03/02/24 18:08 History of Present Illness HPI narrative: 73 years old white male woke up this morning with nausea, vomiting, dry heaving, had Zofran, subsequently started having vomiting and lower abdominal pain with nausea and vomiting again. History of pancreatic cancer, August 2023, last chemotherapy on February 20, 2024. HISTORY OF PANCREATIC CANCER, KIDNEY STONES. Related Data Home Medications Medication Instructions Recorded Confirmed buspirone 15 mg tablet 15 mg PO BID 01/08/20 02/27/24 fluticasone propionate 50 2 spray intranasal DAILY 01/08/20 02/27/24 mcg/actuation nasal spray,suspension (Flonase Allergy Relief) latanoprost 0.005 % eye drops 1 drop ophthalmic (eye) HS 01/08/20 02/27/24 Multivitamin 50 Plus 1 tab-cap PO QA 09/15/20 02/27/24 aspirin 81 mg tablet,delayed 81 mg PO QA 09/15/20 02/27/24 release magnesium 200 mg tablet 400 mg PO DAILY 09/15/20 02/27/24 rosuvastatin 40 mg tablet 40 mg PO HS 09/15/20 02/27/24 Vascepa 2,000 mg PO BID 11/16/20 02/27/24 ascorbic acid (vitamin C) 1,000 mg 1 g PO DAILY 02/09/21 02/27/24 tablet cetirizine 10 mg tablet (Zyrtec) 10 mg PO DAILY 02/09/21 02/27/24 cholecalciferol (vitamin D3) 50 50 mcg PO DAILY 02/09/21 02/27/24 mcg (2,000 unit) capsule glucosamine HCl 500 mg tablet 1,000 mg PO DAILY 02/09/21 02/27/24 pyridoxine (vitamin B6) 100 mg 100 mg PO DAILY 02/09/21 02/27/24 tablet metoprolol succinate 50 mg 50 mg PO QAM 04/26/21 02/27/24 tablet,extended release 24 hr fluoxetine 20 mg capsule 20 mg PO DAILY 02/27/23 02/27/24 isosorbide mononitrate 30 mg 30 mg PO DAILY 02/27/23 02/27/24 tablet,extended release 24 hr icosapent ethyl 1 gram capsule 2 g PO BID 09/13/23 02/27/24 Allergies Allergy/AdvReac Type Severity Reaction Status Date / Time No Known Allergies Allergy Verified 03/02/24 17:40 Review of Systems Review of Systems: All systems reviewed & are unremarkable except as noted in HPI and below PMFSH Past Medical History Medical History Anxiety CAD (coronary artery disease) COPD (chronic obstructive pulmonary disease) Depression Depression with anxiety Dupuytren's contracture of right hand Gastro-esophageal reflux disease without esophagitis Hx of myocardial infarction Hypertension with heart disease Hypertensive heart and CKD Melanoma Mild chronic obstructive pulmonary disease Mixed hyperlipidemia MARTHA (obstructive sleep apnea) Overweight (BMI 25.0-29.9) Pancreatic mass Surgical History Surgical History History of appendectomy History of lithotripsy Status post cataract extraction Status post lumbar spinal fusion Family History Family History Mother Hypertension HLD (hyperlipidemia) Lung cancer Father Cerebrovascular accident Social History Social History Smoking packs per day: 1 Smoking cigarettes per day: 20.0 Years smoked: 30 Smoking pack-years: 30.00 Smoking status: Current every day smoker Tobacco type: cigars Second hand tobacco smoke exposure: Yes Smoking end date: 12/19/94 Additional smoking assessment comments: quit in 1994 Alcohol intake: current Drinks per week: 1 Alcohol use details: 1 every couple of weeks Substance use: never Substance use type: does not use Do You Feel Safe in your Home?: Yes Lack of Transportation: No Lack of Food: Never True Current Housing: I Have Housing Concerned About Future Housing: No Difficulty Paying Gas/Electric Bills: No Difficulty Paying for Meds: No Currently Unemployed: No Education: High School Diploma/GED Difficulty w/ Childcare or Family Care: No Living arrangements: with family Additional
[2024-03-02 18:19] LABS: Hematocrit 28.2 % (42.0-52.0); Hemoglobin 9.6 g/dL (14.0-18.0); Mean Corpuscular Hemoglobin 31.4 pg (26-34); Mean Corpuscular Volume 92.2 fl (80-100); Mean Platelet Volume 9.5 fl (7.4-10.4); Platelet Count Result 258 k/mm3 (150-375); Red Blood Count 3.06 M/mm3 (4.6-6.20); Red Cell Distribution Width 16.4 % (11.5-14.5); White Blood Count 7.4 K/mm3 (4.5-10.0)
[2024-03-02] MEDS: SODIUM CHLORIDE 0.9% IV 1,000 ML 999 ML IV CONT (18:21)
[2024-03-02] MEDS: HYDROmorphone HCL INJ (*CRX) 1 MG/ML SYR 0.5 MG IV PUSH (18:22)
[2024-03-02] MEDS: ONDANSETRON INJ 4 MG/2 ML VIAL IV PUSH (18:22)
[2024-03-02 18:30] VITALS: BP 158/58; PULSE 72; RESP 16; O2SAT 100
[2024-03-02 18:35] LABS: Alanine Aminotransferase 55 U/L (6-50); Albumin Level 3.6 g/dL (3.5-5.1); Alkaline Phosphatase 241 U/L (38-126); Anion Gap 8 mmol/L (4-12); Aspartate Amino Transferase 103 U/L (17-59); Bilirubin,Total 0.6 mg/dL (0.2-1.3); Blood Urea Nitrogen 19 mg/dL (9-20); Calcium 9.2 mg/dL (8.4-10.2); Carbon Dioxide 21 mmol/L (22-30); Chloride 106 mmol/L (98-107); Estimated CRCL calculation 38 ml/min; Estimated Glomerular Filt Rate 49; Glucose 138 mg/dL (65-110); Lipase 53 U/L (23-300); Sodium 135 mmol/L (137-145)
[2024-03-02 18:39] LABS: Band Neutrophils Percent 4 % (0-6); Eosinophils Absolute Manual 0.22 K/mm3 (0.02-0.50); Eosinophils Percent Manual 3 % (0-4); Lymphocytes Absolute Manual 1.25 K/mm3 (1.1-4.5); Monocytes Absolute Manual 1.03 K/mm3 (0.1-0.90); Monocytes Percent Manual 14 % (3-9); Neutrophils Absolute Manual 4.88 K/mm3 (1.3-6.7); Neutrophils Percent Manual 62 % (46-73); Total Cells Counted 100
[2024-03-02 18:40] LABS: Anisocytosis 2+; Platelet Estimate Adequate (Adequate); Schistocytes None Seen
[2024-03-02 20:35] LABS: Appearance Urine Clear (Clear); Bacteria Urine 3+ /hpf; Bilirubin Urine Negative (Negative); Blood Urine Negative (Negative); Color Urine Yellow (Yellow); Glucose Urine UA Negative (Negative); Ketones Urine Negative (Negative); Leukocyte Esterase Ur 1+ LEU/UL (Negative); Nitrate Urine Negative (Negative); Non Pathogenic Casts 0-2; Protein Urine 1+ mg/dL (Negative); RBC Urine 0-2 /hpf (0-2); Squamous Epithelial Cell Urine None Seen /hpf (Few); Urobilinogen Urine 0.2 mg/dL (<2.0); WBC Urine 21-50 /hpf (0-3)
[2024-03-02 20:37] LABS: Add Urine Microscopic? YES
[2024-03-02 21:55] VITALS: BP 131/74; PULSE 75; RESP 16; O2SAT 98
== END 2024-03-02 22:10 | disposition home or self-care (01) ==
PROVIDERS: Physician Assistant; Emergency Provider Emergency Medicine; PCP Family Medicine
DX: N39.0 Urinary tract infection, site not specified (principal); N20.0 Calculus of kidney; I25.10 Atherosclerotic heart disease of native coronary artery without angina pectoris; I25.2 Old myocardial infarction; N18.9 Chronic kidney disease, unspecified; I13.10 Hypertensive heart and chronic kidney disease without heart failure, with stage 1 through stage 4 chronic kidney disease, or unspecified chronic kidney disease; J44.9 Chronic obstructive pulmonary disease, unspecified; E78.2 Mixed hyperlipidemia; E66.3 Overweight; Z68.27 Body mass index [BMI] 27.0-27.9, adult; G47.33 Obstructive sleep apnea (adult) (pediatric); K21.9 Gastro-esophageal reflux disease without esophagitis; M72.0 Palmar fascial fibromatosis [Dupuytren]; F41.8 Other specified anxiety disorders; Z85.820 Personal history of malignant melanoma of skin; Z87.442 Personal history of urinary calculi; Z87.891 Personal history of nicotine dependence; Z98.49 Cataract extraction status, unspecified eye; Z98.1 Arthrodesis status; Z79.82 Long term (current) use of aspirin; K20.90 Esophagitis, unspecified without bleeding; K29.70 Gastritis, unspecified, without bleeding
CPT/HCPCS: 36415; 74177; 80053; 81001; 83690; 85025; 87077; 87086; 87088; 87181; 96361; 96365; 96375; 99284; J0696; J1170; J2405; J7030; Q9967

== ENCOUNTER 2024-05-24 11:07 | Emergency (ER) | payer BC, SELFPAY ==
[2024-05-24] VITALS (30 sets, daily range): BP systolic 86–133; BP diastolic 46–76; PULSE 71–91; RESP 9–21; TEMP 37; O2SAT 96–100
--- NOTE | ~2024-05-24 | CT_ITS ---
CTA chest PE abdomen pel Ordering provider: Sameer Loo MD History: . recent whipple, new CP and back pain . Comparison: None. Technique: CT angiogram chest was performed following timed intravenous injection of contrast. Thin s lice axial images and reformatted coronal images were obtained. Three dimensional reformatted images of the chest were also obtained using a [employer] workstation. Also, CT of the abdomen and pelvis was pe rformed with IV contrast. . Automated exposure control and iterative reconstruction technique were e mployed. The dose-length product was 1182.28 mGy-cm. 100 MLO Omnipaque 350 was given IV. FINDINGS: CHEST: --PULMONARY ARTERIES: No pulmonary embolus. --VISUALIZED THORACIC INLET: Normal. --MEDIASTINUM: Aorta/coronary arteries: Mild atheromatous disease. Heart/other: The heart is not enlarged. Trace of pericardial effusion. Lymph nodes: No mediastinal or hilar adenopathy. --LUNGS: Infiltrate in the right upper lobe anteriorly and laterally and also in the middle lobe no masses. 6 mm nodule is seen in the right lower lobe. Pleural-based nodule also seen in the lower lobe measuring 5 mm. No infiltrates or effusions. No pneumothorax. --MUSCULOSKELETAL: Bones: Age appropriate degenerative changes of the spine. Superficial soft tissues: The superficial soft tissues are normal. ABDOMEN/PELVIS: --MUSCULOSKELETAL: Superficial soft tissues: The superficial soft tissues are normal. Bones: Age appropriate degenerative changes of the spine. --UPPER ABDOMINAL ORGANS: Liver: Pneumobilia is seen. Gallbladder: Status post cholecystectomy. Spleen: Normal. Stomach/duodenum: Postoperative changes in the duodenal area with thickened duodenum Pancreas: Inflammatory changes seen around the head of the pancreas which is suggestive of pancreatit is. Mass like area measuring 3.1 x 4.2 cm air is seen which may be thickened bowel or a mass. Minimal fluid is seen adjacent to the area. Adrenals: Normal. Kidneys: Stones in the right kidney upper pole the largest measures 1 cm. Tiny stone in the right kid jonas lower pole. Tiny stone in the left kidney lower and mid pole stone in the left kidney upper pole measuring 6 mm. --PELVIC ORGANS: The bladder is normal. No bladder stones. --BOWEL AND MESENTERY: Colon: No evidence of diverticulitis sigmoid colon. Fecal material is loaded in the colon. No evidenc e of appendicitis.. Small Bowel: Normal. No obstruction. Peritoneum/mesentery: No free air or free fluid. No mesenteric lymphadenopathy. Densities are seen in the mesentery anterior which may be inflammatory but can be metastatic deposits. follow-up advised. --RETROPERITONEUM: Mild atheromatous disease of the abdominal aorta. No retroperitoneal lymphadenop athy. IMPRESSION: CHEST: 1. No pulmonary embolism. 2. Pneumonia in the right upper lobe and middle lobe. 3. Trace of pericardial effusion. ABDOMEN/PELVIS: 1. Pneumobilia. 2. Inflammatory changes around the head of the pancreas with a masslike area which may be thickened bile or a mass.Follow-up advised. 3. Thickening in the wall of the duodenum with postoperative changes 4. Constipation. Reviewed, dictated and finalized at location A. IMPRESSION: CHEST: 1. No pulmonary embolism. 2. Pneumonia in the right upper lobe and middle lobe. 3. Trace of pericardial effusion. ABDOMEN/PELVIS: 1. Pneumobilia. 2. Inflammatory changes around the head of the pancreas with a masslike area w hich may be thickened bile or a mass.Follow-up advised. 3. Thickening in the wall of the duodenum with postoperative changes 4. Constipation.
[2024-05-24 12:01] LABS: Basophils Absolute Auto 0.1 K/mm3 (0.0-0.1); Basophils Percent Auto 0.4 % (0.2-1.2); Eosinophils Absolute Auto 0.2 K/mm3 (0-0.3); Eosinophils Percent Auto 1.3 % (0-4.4); Hematocrit 29.1 % (42.0-52.0); Hemoglobin 9.6 g/dL (14.0-18.0); Immature Granulocyte Absolute 0.06 K/mm3 (0.00-0.031); Immature Granulocyte Percent A 0.5 % (0-0.5); Lymphocytes Absolute Auto 1.59 K/mm3 (0.9-3.2); Lymphocytes Percent Auto 12.4 % (18.3-44.2); Mean Corpuscular Hemoglobin 30.6 pg (26-34); Mean Corpuscular Volume 92.7 fl (80-100); Mean Platelet Volume 8.9 fl (7.4-10.4); Monocytes Absolute Auto 1.3 K/mm3 (0.1-0.6); Monocytes Percent Auto 10.2 % (2.6-8.5); Neutrophils Absolute Auto 9.6 K/mm3 (1.3-6.7); Neutrophils Percent Auto 75.2 % (45.5-73.1); Platelet Count Result 212 k/mm3 (150-375); Red Blood Count 3.14 M/mm3 (4.6-6.20); Red Cell Distribution Width 16.2 % (11.5-14.5); White Blood Count 12.8 K/mm3 (4.5-10.0)
[2024-05-24 12:15] LABS: Alanine Aminotransferase 132 U/L (6-50); Albumin Level 3.6 g/dL (3.5-5.1); Alkaline Phosphatase 198 U/L (38-126); Anion Gap 8 mmol/L (4-12); Aspartate Amino Transferase 134 U/L (17-59); Bilirubin,Total 0.5 mg/dL (0.2-1.3); Blood Urea Nitrogen 23 mg/dL (9-20); Carbon Dioxide 24 mmol/L (22-30); Chloride 104 mmol/L (98-107); Estimated CRCL calculation 38 ml/min; Estimated Glomerular Filt Rate 49; Glucose 114 mg/dL (65-110); Lipase 260 U/L (23-300); Sodium 136 mmol/L (137-145)
--- NOTE | 2024-05-24 12:32 | ECG_ITS ---
Test Date: 2024-05-24 12:44:56 Measurements Intervals [place] Rate: 80 P: 51 IA: 150 QRS: 5 QRSD: 112 T: 40 QT: 363 QTc: 419 Interpretive Statements SINUS RHYTHM INCOMPLETE RIGHT BUNDLE BRANCH BLOCK BASELINE ARTIFACT- I, III, AVR, AVL, V1, V3 BORDERLINE ECG No previous ECG available for comparison Electronically Signed On 05-24-2024 12:46:48 CDT by Clayton Hernandez D.O.
--- NOTE | 2024-05-24 12:40 | ED.NAVMDI ---
HPI - Nausea/Vomiting/Diarrhea General Chief complaint: Nausea/Vomiting/Diarrhea Stated complaint: chills, n/v Time Seen by Provider: 05/24/24 11:58 History of Present Illness HPI Narrative: This is a 73-year-old male with past medical history significant for pancreatic cancer, CKD, GERD, hypertension, hyperlipidemia. Patient is approximately 1 month status post Whipple procedure at [facility]. Patient very complicated course during that hospitalization at this state for several weeks postoperatively as he had bleeding internally that required endoscopy and control of bleeding ulceration according to the family members. Patient did require multiple units of blood transfusions time his hospital stay. Patient was discharged several weeks later and has been at home recovering well. He states he has been having some nauseous this but otherwise not any acute complaints until last night when he had the sudden onset crushing chest pain that was associated with some mild abdominal pain and nauseousness vomiting of dark bile is material. Patient states he has also had some diarrhea that was dark. Patient endorses shaking, chills and overall does not feel well. He presents today for evaluation. Denies any difficulty breathing presently is chest pain has mostly subsided. Does not feel nauseous presently denies any abdominal distension, confusion, syncope, injury. Related Data Home Medications Medication Instructions Recorded Confirmed fluticasone propionate 50 2 spray intranasal DAILY 01/08/20 02/27/24 mcg/actuation nasal spray,suspension (Flonase Allergy Relief) latanoprost 0.005 % eye drops 1 drop ophthalmic (eye) HS 01/08/20 02/27/24 Multivitamin 50 Plus 1 tab-cap PO QAM 09/15/20 02/27/24 aspirin 81 mg tablet,delayed 81 mg PO QAM 09/15/20 02/27/24 release magnesium 200 mg tablet 400 mg PO DAILY 09/15/20 02/27/24 rosuvastatin 40 mg tablet 40 mg PO HS 09/15/20 02/27/24 Vascepa 2,000 mg PO BID 11/16/20 02/27/24 ascorbic acid (vitamin C) 1,000 mg 1 g PO DAILY 02/09/21 02/27/24 tablet cetirizine 10 mg tablet (Zyrtec) 10 mg PO DAILY 02/09/21 02/27/24 cholecalciferol (vitamin D3) 50 50 mcg PO DAILY 02/09/21 02/27/24 mcg (2,000 unit) capsule glucosamine HCl 500 mg tablet 1,000 mg PO DAILY 02/09/21 02/27/24 pyridoxine (vitamin B6) 100 mg 100 mg PO DAILY 02/09/21 02/27/24 tablet metoprolol succinate 50 mg 50 mg PO QAM 04/26/21 02/27/24 tablet,extended release 24 hr isosorbide mononitrate 30 mg 30 mg PO DAILY 02/27/23 02/27/24 tablet,extended release 24 hr icosapent ethyl 1 gram capsule 2 g PO BID 09/13/23 02/27/24 Allergies Allergy/AdvReac Type Severity Reaction Status Date / Time No Known Allergies Allergy Verified 03/02/24 17:40 Review of Systems Review of Systems: Review of systems as noted above and otherwise unremarkable [facility] Past Medical History Medical History Anxiety CAD (coronary artery disease) COPD (chronic obstructive pulmonary disease) Depression Depression with anxiety Dupuytren's contracture of right hand Gastro-esophageal reflux disease without esophagitis Hx of myocardial infarction Hypertension with heart disease Hypertensive heart and CKD Melanoma Mild chronic obstructive pulmonary disease Mixed hyperlipidemia MARTHA (obstructive sleep apnea) Overweight (BMI 25.0-29.9) Pancreatic mass Surgical History Surgical History History of appendectomy History of lithotripsy Status post cataract extraction Status post lumbar spinal fusion Family History Family History Mother Hypertension HLD (hyperlipidemia) Lung cancer Father Cerebrovascular accident Social History Social History Smoking packs per day: 1 Smoking cigarettes
[2024-05-24] MEDS: ONDANSETRON INJ 4 MG/2 ML VIAL IV PUSH (12:47)
[2024-05-24] MEDS: LACTATED RINGERS 1,000 ML 999 ML IV CONT ×2 (12:47→15:38)
[2024-05-24] MEDS: HYDROmorphone HCL INJ (*CRX) 1 MG/ML SYR 0.5 MG IV PUSH (12:47)
[2024-05-24 13:10] LABS: Lactic Acid Reflex 0.9 mmol/L (0.7-2.0); Magnesium 1.7 mg/dL (1.6-2.3)
[2024-05-24 13:22] LABS: Troponin I < 0.012 ng/mL (0.000-0.034)
[2024-05-24 14:37] LABS: Appearance Urine Clear (Clear); Bacteria Urine None Seen /hpf; Bilirubin Urine Negative (Negative); Blood Urine Negative (Negative); Color Urine Yellow (Yellow); Glucose Urine UA Negative (Negative); Ketones Urine Negative (Negative); Leukocyte Esterase Ur Negative LEU/UL (Negative); Nitrate Urine Negative (Negative); Protein Urine 1+ mg/dL (Negative); RBC Urine 0-2 /hpf (0-2); Specific Grav Ur 1.013 (1.001-1.035); Squamous Epithelial Cell Urine None Seen /hpf (Few); WBC Urine 0-5 /hpf (0-3); pH Urine 6.5 (5.0-9.0)
[2024-05-24 15:02] LABS: Add Urine Microscopic? YES
--- NOTE | 2024-05-24 15:17 | PC.NURSE ---
Spoke with [facility]. [facility] will call when bed is available.
[2024-05-24] MEDS: CEFEPIME 2 GM/NS 50 ML 2 GM/50 ML BAG IVPB (15:38)
--- NOTE | 2024-05-24 15:38 | ECG_ITS ---
Test Date: 2024-05-24 15:44:07 Measurements Intervals [place] Rate: 73 P: 61 MO: 156 QRS: -5 QRSD: 119 T: 44 QT: 389 QTc: 429 Interpretive Statements SINUS RHYTHM INCOMPLETE RIGHT BUNDLE BRANCH BLOCK BASELINE ARTIFACT- I, II, III, AVR, AVL BORDERLINE ECG Compared to ECG 05/24/2024 12:44:56 No significant changes Electronically Signed On 05-24-2024 17:11:44 CDT by Clayton Hernandez D.O.
[2024-05-24 15:57] LABS: Lactic Acid Reflex 0.7 mmol/L (0.7-2.0)
[2024-05-24 16:10] LABS: Troponin I < 0.012 ng/mL (0.000-0.034)
[2024-05-24] MEDS: VANCOMYCIN 2,000 MG/NS 500 ML 2,000 MG/500 ML BAG 250 MG IVPB (16:11)
[2024-05-24 16:35] LABS: CRP 4.4 mg/dL (<1.0)
[2024-05-24 17:13] LABS: MRSA (PCR) NOT DETECTED (NOT DETECTE)
--- NOTE | 2024-05-24 22:29 | PC.NURSE ---
Updated transfer center. They report patient may receive a bed tonight.
[2024-05-24] MEDS: INSULIN GLARGINE (*BKC) 100 UNITS/ML 8 UNITS SUB-Q (22:32)
[2024-05-24 22:35] LABS: Glucose Point of Care 131 mg/dl (65-105)
[2024-05-24] MEDS: busPIRone HCL 10 MG TABLET PO (22:46)
[2024-05-24] MEDS: POTASSIUM CITRATE 5 MEQ TAB CR PO (22:46)
[2024-05-24] MEDS: PANTOPRAZOLE SODIUM IV 40 MG VIAL IV PUSH (23:04)
[2024-05-25] VITALS (13 sets, daily range): BP systolic 102–138; BP diastolic 64–81; PULSE 78–96; RESP 14–17; O2SAT 95–100
--- NOTE | 2024-05-25 08:24 | PC.NURSE ---
SPOKE WITH TRANSFER [facility] AT [facility] FOR BED STATUS UPDATE. NO BED AVAILABLE AT THIS TIME
[2024-05-25 11:10] LABS: Estimated CRCL calculation 48 ml/min; Estimated Glomerular Filt Rate > 60
[2024-05-25 14:17] LABS: Glucose Point of Care 90 mg/dl (65-105)
[2024-05-25] MEDS: VANCOMYCIN 1,500 MG/NS 500 ML 1,500 MG/500 ML BAG 250 MG IVPB (16:30)
[2024-05-25] MEDS: PANTOPRAZOLE 40 MG TABLET PO (18:23)
[2024-05-25 21:30] LABS: Glucose Point of Care 96 mg/dl (65-105)
[2024-05-25 22:45] LABS: Glucose Point of Care 94 mg/dl (65-105)
[2024-05-25] MEDS: INSULIN GLARGINE (*BKC) 100 UNITS/ML 8 UNITS SUB-Q (22:55)
[2024-05-26 04:16] VITALS: BP 136/74; PULSE 77; RESP 15; O2SAT 100
--- NOTE | 2024-05-26 05:06 | PC.NURSE ---
Report called to [facility]. Patient is to be transferred to bed [id number]. Patient made aware. Ambulance arranged.
[2024-05-26] MEDS: PANTOPRAZOLE 40 MG TABLET PO (06:16)
[2024-05-26 06:21] VITALS: BP 134/74; PULSE 77; RESP 15; O2SAT 100
[2024-05-26 06:44] LABS: Estimated CRCL calculation 44 ml/min; Estimated Glomerular Filt Rate 59
[2024-05-26 07:19] VITALS: BP 134/73; PULSE 74; RESP 16; O2SAT 100
--- NOTE | 2024-05-26 07:29 | PC.NURSE ---
called dietary at this time and ordered a breakfast tray for pt as requested
== END 2024-05-26 10:06 | disposition short-term general hospital (02) ==
PROVIDERS: Emergency Medicine; Emergency Provider Student in an Organized Health Care Education/Training Program; PCP Family Medicine
DX: A41.9 Sepsis, unspecified organism (principal); J18.9 Pneumonia, unspecified organism; Z98.890 Other specified postprocedural states; I25.10 Atherosclerotic heart disease of native coronary artery without angina pectoris; J44.9 Chronic obstructive pulmonary disease, unspecified; K21.9 Gastro-esophageal reflux disease without esophagitis; F41.8 Other specified anxiety disorders; Z85.820 Personal history of malignant melanoma of skin; E78.2 Mixed hyperlipidemia; G47.33 Obstructive sleep apnea (adult) (pediatric); F17.210 Nicotine dependence, cigarettes, uncomplicated
CPT/HCPCS: 36415; 71275; 74177; 80053; 81001; 82565; 82948; 83605; 83690; 83735; 84484; 85025; 86140; 86850; 86900; 86901; 87040; 87641; 93005; 96361; 96365; 96366; 96367; 96375; 99285; A9270; J0692; J1170; J1815; J2405; J2470; J3370; J7120; Q9967

== ENCOUNTER 2024-06-30 13:42 | Emergency (ER) | payer BC, SELFPAY ==
--- NOTE | 2024-06-30 13:43 | ED.MALEGU ---
HPI - Male Genitourinary General Chief complaint: Urogenital-Male Stated complaint: BLOOD IN URINE Time Seen by Provider: 06/30/24 13:42 Source: patient Mode of arrival: ambulatory Limitations: no limitations History of Present Illness HPI Narrative: Librado is a 73-year-old male patient presenting to the clinic today with complaints of blood in his urine and increased urinary frequency that began yesterday. He reports he did have some burning with urination at the beginning of his stream. Denies any incontinence. Does report some back pain and some stomach discomfort. No known fever but has had some chills. Just started a new chemo medication for pancreatic cancer. History of kidney stones in the past. Related Data Home Medications Medication Instructions Recorded Confirmed fluticasone propionate 50 2 spray intranasal DAILY 01/08/20 06/20/24 mcg/actuation nasal spray,suspension (Flonase Allergy Relief) latanoprost 0.005 % eye drops 1 drop ophthalmic (eye) HS 01/08/20 06/20/24 Multivitamin 50 Plus 1 tab-cap PO QAM 09/15/20 06/20/24 aspirin 81 mg tablet,delayed 81 mg PO QAM 09/15/20 06/20/24 release magnesium 200 mg tablet 400 mg PO DAILY 09/15/20 06/20/24 rosuvastatin 40 mg tablet 40 mg PO HS 09/15/20 06/20/24 Vascepa 2,000 mg PO BID 11/16/20 06/20/24 ascorbic acid (vitamin C) 1,000 mg 1 g PO DAILY 02/09/21 06/20/24 tablet cetirizine 10 mg tablet (Zyrtec) 10 mg PO DAILY 02/09/21 06/20/24 cholecalciferol (vitamin D3) 50 50 mcg PO DAILY 02/09/21 06/20/24 mcg (2,000 unit) capsule glucosamine HCl 500 mg tablet 1,000 mg PO DAILY 02/09/21 06/20/24 pyridoxine (vitamin B6) 100 mg 100 mg PO DAILY 02/09/21 06/20/24 tablet metoprolol succinate 50 mg 50 mg PO QAM 04/26/21 06/20/24 tablet,extended release 24 hr isosorbide mononitrate 30 mg 30 mg PO DAILY 02/27/23 06/20/24 tablet,extended release 24 hr icosapent ethyl 1 gram capsule 2 g PO BID 09/13/23 06/20/24 capecitabine 500 mg tablet mg 06/30/24 Allergies Allergy/AdvReac Type Severity Reaction Status Date / Time No Known Allergies Allergy Verified 06/30/24 13:55 Review of Systems Review of Systems: Pertinent positives per HPI. Patient denies any fever, chills, rash, headache, visual changes, dizziness, cough, runny nose, sore throat, shortness of breath, chest pain, palpitations, nausea, vomiting, diarrhea, constipation, abdominal pain. [facility] Past Medical History Medical History Anxiety CAD (coronary artery disease) COPD (chronic obstructive pulmonary disease) Depression Depression with anxiety Dupuytren's contracture of right hand Gastro-esophageal reflux disease without esophagitis Hx of myocardial infarction Hypertension with heart disease Hypertensive heart and CKD Melanoma Mild chronic obstructive pulmonary disease Mixed hyperlipidemia MARTHA (obstructive sleep apnea) Overweight (BMI 25.0-29.9) Pancreatic mass Peripheral neuropathy due to chemotherapy Surgical History Surgical History History of appendectomy History of lithotripsy Status post cataract extraction Status post lumbar spinal fusion Family History Family History Mother Hypertension HLD (hyperlipidemia) Lung cancer Father Cerebrovascular accident Social History Social History Smoking packs per day: 1 Smoking cigarettes per day: 20.0 Years smoked: 30 Smoking pack-years: 30.00 Smoking status: Current every day smoker Tobacco type: cigars Second hand tobacco smoke exposure: Yes Smoking end date: 12/19/94 Additional smoking assessment comments: quit in 1994 Alcohol intake: current Drinks per week: 1 Alcohol use details: 1 every couple of weeks Substance use: never Substance use type: does not use Do You
[2024-06-30 13:50] VITALS: BP 106/55; PULSE 81; RESP 18; TEMP 36.8; O2SAT 100
[2024-06-30 14:51] LABS: EDUAAPPEAR Cloudy; EDUABILI Negative; EDUABLOOD 2+; EDUACOLOR1 Yellow; EDUAGLUCOSE Negative; EDUAKETONE Negative; EDUALEUKO Negative; EDUANITRATE Negative; EDUAPROTEIN 3+
== END 2024-06-30 15:05 | disposition home or self-care (01) ==
PROVIDERS: Emergency Provider Nurse Practitioner Family; PCP Family Medicine
DX: R31.9 Hematuria, unspecified (principal); R80.9 Proteinuria, unspecified; C25.9 Malignant neoplasm of pancreas, unspecified; Z79.60 Long term (current) use of unspecified immunomodulators and immunosuppressants; Z87.891 Personal history of nicotine dependence; I25.10 Atherosclerotic heart disease of native coronary artery without angina pectoris; K21.9 Gastro-esophageal reflux disease without esophagitis; I13.10 Hypertensive heart and chronic kidney disease without heart failure, with stage 1 through stage 4 chronic kidney disease, or unspecified chronic kidney disease; N18.9 Chronic kidney disease, unspecified; E78.2 Mixed hyperlipidemia; I25.2 Old myocardial infarction; Z85.820 Personal history of malignant melanoma of skin; Z79.82 Long term (current) use of aspirin
CPT/HCPCS: 81003; 87086; 99213; G0463

== ENCOUNTER 2024-08-05 13:49 | Outpatient (CLI) | payer BC, MEDICARE, SELFPAY ==
--- NOTE | ~2024-08-05 | XR_ITS ---
XR abdomen/kub 1V Ordering provider: Neeraj Taylor MD History: . GROSS HEMATURIA . Comparison: September 12, 2023 FINDINGS: BOWEL: Nonobstructive bowel gas pattern. ORGANOMEGALY: None. SIGNIFICANT PATHOLOGIC CALCIFICATIONS: Multiple stones in the right kidney upper pole unchanged. Tiny stones in the left kidney upper and mid pole OTHER: No free air is seen under the diaphragm. Degenerative changes of the spine. postoperative changes in the lower lumbar area. IMPRESSION: NO ACUTE ABDOMINAL FINDINGS. Bilateral kidney stones. Reviewed, dictated and finalized at location A.
--- NOTE | ~2024-08-05 | CT_ITS ---
CT of the Abdomen and Pelvis: Indication: Hematuria Technique: 2.5 mm axial scans were obtained through the abdomen and pelvis prior to and following in travenous administration of 130 cc of Omnipaque 350. Dose reduction technique was used on this scan b y utilizing automated exposure control and iterative reconstruction technique. The dose-length produc t (DLP) was 1080.94 mGy-cm. COMPARISON: 05/24/2024 Findings: Scans through the lung bases demonstrate 9 mm right basilar pulmonary nodule is increased from prior exam (axial image 13). Focal areas of groundglass opacity and/or groundglass nodules at th e lung bases are otherwise similar to prior exam.. Cholecystectomy clips and pneumobilia are present. No hepatic parenchymal abnormality seen otherwise. Status post pancreatic head resection. The spleen and adrenal glands are within normal limits. There are atherosclerotic calcifications of the aorta. There are nonobstructing renal stones, largest at t he right upper pole measuring 13 mm in diameter. No ureteral stone or hydronephrosis seen. No lymphad enopathy. No bowel obstruction or bowel wall thickening. There is no evidence to suggest acute appendicitis. Images through the pelvis were performed. Urinary bladder unremarkable. No pelvic mass seen. No ascit es. 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 Impression: Bilateral nonobstructing nephrolithiasis, as detailed above. Status post Whipple's procedure. 9 mm right basilar pulmonary nodule is increased from prior exam. This is suspicious for metastasis g iven increasing nodule and evidence of prior Whipple's procedure. Reviewed, dictated and finalized at location . Impression: Bilateral nonobstructing nephrolithiasis, as detailed above. Status post Whipple's procedure. 9 mm right basilar pulmonary nodule is increased from prior exam. This is suspi cious for metastasis given increasing nodule and evidence of prior Whipple's pr ocedure.
[2024-08-05 14:09] LABS: Estimated Glomerular Filt Rate 59
== END 2024-08-05 13:50 | disposition home or self-care (01) ==
LOC: MICIMG 13:50
PROVIDERS: PCP Family Medicine; Visit Provider Urology
DX: R31.0 Gross hematuria (principal); N20.0 Calculus of kidney
CPT/HCPCS: 74018; 74178; Q9967